=== PATIENT | female | born 1945 | race Caucasian/White ===

== ENCOUNTER 2016-08-25 12:35 | Inpatient (IN) ==
--- NOTE | 2016-08-25 13:35 | Emergency Department Note ---
START Narrative - START START: I examined this patient and my medical decision-making was reviewed with the DIRECTOR CARDIOVASCULAR/PA/Advanced Practice Nurse/Resident Physician. I agree with the documented findings, disposition and treatment plan as described except to the extent set forth below. ED attending note: Patient seen with emergency medicine resident Dr. Silva. Please see a copy of his dictation for details of the H&P, evaluation and management, and emergency department disposition of this patient. We independently had [id number] contact with the patient. Briefly: A 71-year-old female sent [facility] for left hip fracture. She has been complaining of pain for several weeks had imaging which would stress fracture. Also complains of left shoulder pain for several weeks and once that x-rayed as well. Again no history of trauma. Examination is benign aside from the left hip and left shoulder. Neurologically nonfocal. Not on blood thinners. Admission pending. X-ray pending. Patient stable.
--- NOTE | 2016-08-25 13:35 | Emergency Department Note ---
Disposition Clinical Impression: Fracture of hip Disposition: Admitted As Inpatient Condition: Good Referrals: Noé Skinner MD [Primary Care Provider] - Forms: ED Satisfaction Letter Lower Extremity Injury HPI - General Chief Complaint: ED Extremity Injury, Lower Stated Complaint: Hip Fracture/[facility] Time Seen by Provider: 08/25/16 13:00 Source: patient, EMS Mode of arrival: ambulatory Limitations: no limitations Nursing Notes Reviewed: Yes Vital Signs Reviewed: Yes - History of Present Illness HPI Narrative: 71-year-old female [facility] by Dr. Gutiérrez for admission of left hip fracture. The patient is had pain in this hip for the last several weeks without any associated trauma. She had an MRI performed 1 week ago that showed left femoral neck fracture that appears to be a stress fracture. Patient states that her pain is mild this time and does not want any IV pain medication. She denies any other symptoms including exercise intolerance, chest pain, shortness of breath, GI or symptoms. She does not know left shoulder discomfort over the last several weeks as well which is worse with motion of the shoulder and palpation of the shoulder. There is also no known injury of the shoulder. She states that she has been ambulating with a walker at the rehabilitation facility where she has been residing. Pt Subjective Complaint: hip injury - Related Data Home Medications Medication Instructions Recorded Confirmed Albuterol Sulfate [Albuterol 2 puff IH Q6HR PRN 05/06/15 07/27/16 Inhaler] Atorvastatin [Lipitor] 20 mg PO HS 05/06/15 07/27/16 Clopidogrel [Plavix] 75 mg PO DAILY 05/06/15 07/27/16 Ergocalciferol (VITAMIN D2) 50,000 unit PO MOWETHSA 05/06/15 07/27/16 [Vitamin D2 (50,000 UNIT)] Esomeprazole Magnesium [Nexium] 40 mg PO BID 05/06/15 07/27/16 Ropinirole HCl [Requip] 2 mg PO HS 05/06/15 07/27/16 Cyanocobalamin (B-12) [Vitamin B12] 1,000 mcg IM QMONTH 11/13/15 07/27/16 Potassium Chloride [K-Tab ER] 20 meq PO QID 11/13/15 07/27/16 Propranolol LA (24 HR) [Inderal LA] 80 mg PO DAILY 11/13/15 07/27/16 Scopolamine Patch [Transderm-Scop] 1.5 mg TD Q72H 11/13/15 07/27/16 LevETIRAcetam [Keppra Xr] 1,000 mg PO HS 04/29/16 07/27/16 Zolpidem Tartrate [Ambien Cr] 12.5 mg PO HS PRN 04/29/16 07/27/16 CloNIDine HCl 0.1 mg PO DAILY PRN 07/01/16 07/27/16 Lansoprazole [Prevacid] 30 mg PO DAILY 07/01/16 07/27/16 Nitroglycerin 1 - 2 spr PO ONCE PRN 07/01/16 07/27/16 SUMAtriptan [Imitrex] 50 mg PO Q2H PRN 07/01/16 07/27/16 Spironolactone [Aldactone] 25 mg PO TID 07/01/16 07/27/16 FLUoxetine HCl [Fluoxetine HCl] 40 mg PO QAM 07/27/16 07/27/16 Fluticasone Propionate [Flovent 220 mcg IH BID 07/27/16 07/27/16 Hfa] Hydrocortisone [Cortizone-10] 1 appl TP BID 07/27/16 07/27/16 Isosorbide MONOnitrate (24 HR) 60 mg PO DAILY 07/27/16 07/27/16 [Imdur] Mupirocin Calcium [Bactroban] 1 appl TP TID PRN 07/27/16 07/27/16 Propranolol [Inderal] 40 mg PO BID 07/27/16 07/27/16 Previous Rx's Medication Instructions Recorded Dronabinol [Marinol] 10 mg PO BID #8 capsule 07/30/16 Oxycodone HCl/Acetaminophen 1 each PO Q6H PRN #7 tablet 07/30/16 [Percocet 5-325 mg Tablet] Allergies Allergy/AdvReac Type Severity Reaction Status Date / Time divalproex sodium Allergy Unknown hallucinati Verified 07/27/16 22:23 on metoclopramide Allergy Unknown Nausea Verified 07/27/16 22:23 ondansetron Allergy Unknown Nausea Verified 07/27/16 22:23 prednisone Allergy Unknown unknown Verified 07/27/16 22:23 propoxyphene Allergy Unknown feeling of Verified 07/27/16 22:23 bugs crawling salicylates [Salicylate] Allergy Unknown unknown Verified 07/27/16 22:23 adhesive tape Allergy Blister Verified 07/27/16 22:23 acetaminophen AdvReac Intermediate See Verified 07/27/16 22:23 [From Susan-Suzi] Comments adhesive AdvReac Unknown Blister Verified 07/27/16 22:23 aspirin AdvReac Unknown bleeding Verified 07/27/16 22:23 stool softener AdvReac Unknown Shakiness Uncoded 04/29/16 07:40 All systems ED: reviewed and negative except as stated. Past Medical History - Past Medical History Attestation: Yes The following information was validated with the patient. 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) Psychiatric history: Reports: anxiety, depression - Social History Smoking Status: Current every day smoker Smokeless Tobacco Status: No Alcohol use: Reports: none Drug use: Reports: none Physical Exam - Head Head exam: atraumatic, normocephalic, normal inspection - Eye Eye exam: Present: normal appearance, PERRL, EOMI - ENT ENT exam: normal exam, normal oropharynx, mucous membranes moist - Neck Neck exam: Present: normal inspection, full ROM, trachea midline - Chest Chest inspection: Present: normal inspection, symmetric chest wall rise - Respiratory Respiratory exam: Clear to auscultation bilaterally without wheezes rales or rhonchi Cardiovascular Cardiovascular exam: Present: regular rate, normal rhythm, normal heart sounds - Abdominal Exam Abdominal exam: Present: soft, Non-Tender. Absent: tenderness, distention, guarding, rebound, rigidity - Extremities Exam Patient with diffuse left shoulder tenderness with normal motor, sensory, and vascular exam distally. Patient with left hip tenderness without swelling or sign of injury. Neurovascular exam is normal distal to the injury. - Back Exam Back exam: Present: normal inspection, full ROM. Absent: tenderness, CVA tenderness (R), CVA tenderness (L) - Neurological Exam Neurological exam: Present: alert, oriented X3, CN II-XII intact - Psychiatric Psychiatric exam: Present: normal affect, normal mood - Skin Skin exam: Present: warm, dry, intact, normal color - General Limitations: no limitations General appearance: alert, in no apparent distress Course - Reevaluation(s) Reevaluation #1: Shoulder x-ray negative. Patient accepted to Dr. Glass with the hospitalist service. Dr. Gilbert notified of patient. Time: 14:23 Vital Signs Temperature 98.4 F 08/25/16 12:36 Pulse Rate 46 08/25/16 12:36 Respiratory Rate 16 08/25/16 12:36 Blood Pressure 105/66 08/25/16 12:36 O2 Sat by Pulse Oximetry 95 08/25/16 12:36 Temperature 98.4 F 08/25/16 12:36 Pulse Rate 46 08/25/16 12:36 Respiratory Rate 16 08/25/16 12:36 Blood Pressure 105/66 08/25/16 12:36 O2 Sat by Pulse Oximetry 95 08/25/16 12:36 Oxygen Delivery Oxygen Delivery Room Air
[2016-08-25] MEDS ORDERED: *HR* HYDROcodone/Acet 5/325 mg TABLET PO ONE (14:11)
--- NOTE | 2016-08-25 16:31 | Orthopedic Consult Note ---
Date of Encounter: 08/25/16 Time of Encounter: 15:45 Assessment and Plan (1) Fracture of hip Current Visit: Yes Status: Acute Hip fracture will require surgical intervention. Scheduled for Left hip pinning tomorrow by Dr. Fitch pending medical clearance. Dr. Fitch discussed the procedure as well as r/b/a with patient when she was in the office today and consent was signed at that time. She will need to be NPO after midnight tonight. Continue pain control per hospitalist. Dr. Gutiérrez plan from office visit in [facility] (of note: his documentation states IM nail but the plan is for pinning): "Clinical Notes: I discussed with the patient her MRI findings of left hip showing Acute nondisplaced stress fracture involving the left femoral neck. Bone marrow edema and suspected nondisplaced insufficiency fracture of the right sacral ala. Mild left gluteus minimus insertional tendinitis. Nonspecific lesions in the right supra-acetabular iliac bone and right femoral neck. These may represent foci of red marrow although neoplastic disease is not entirely excluded. Consider further evaluation with contrast-enhanced right hip MRI and/ or bone scan. Also recommend correlation with any known neoplastic disease. Due to her continued pain she is describing in her left hip I suggested she seek susurgical consult for her left hip due to her osteoporosis. We also discussed getting a bone scan on a spot in her hip. She spoke with today in the office and would like to proceed with a surgery for a left hip IM nail. She will need surgical clearance." Qualifiers: Encounter type: initial encounter Fracture type: closed Laterality: left Qualified Code(s): S72.002A - Fracture of unspecified part of neck of left femur, initial encounter for closed fracture History of Present Illness Chief complaint: left hip pain HPI: Ms. Nelson is a 71 year old female who presented to the [facility] today for follow up after MRI of left hip. She was seen in the office by Dr. Gutiérrez. She denies any history of trauma to me but she is know to have osteoporosis and has been on treatment for 5 years. She also c/o left shoulder pain for awhile again with no known injury. Denies chest pain, SOB, fevers. Dr. Gutiérrez' HPI is copied below: "Patient here for MRI results of her left hip, NO known injury. SHe has sharp pains, worse with movement. Pains annalise 3/10 up to 10/10. Her pain is better with no movement. She complains of swelling in her feet and says her left leg is still somewhat numb. Pain is in the center of buttocks radiating into her groun . 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) - Social History Smoking Status: Current every day smoker Smokeless Tobacco Status: No Alcohol use: none Drug use: none - Family History Mother Adopted: No Family Member Ethnicity: Non- Living Status: Hx Family Cardiac Disorders: Yes Hx Family Respiratory Disorders: Yes Hx Family Cancer: Yes Hx Family GI Disorders: Yes Hx Family Endocrine Disorder: No Hx Family Neuromuscular Disorders: No Hx Family Neurologic Disorders: No Hx Family HEENT Disorders: No Hx Family Autoimmune Disorders: No Medications and Allergies Albuterol Sulfate [Albuterol Inhaler] 2 puff IH Q6HR PRN 05/06/15 [History] Atorvastatin [Lipitor] 20 mg PO HS 05/06/15 [History] Clopidogrel [Plavix] 75 mg PO DAILY 05/06/15 [History] Ergocalciferol (VITAMIN D2) [Vitamin D2 (50,000 UNIT)] 50,000 unit PO MOWETHSA 05/06/15 [History] Esomeprazole Magnesium [Nexium] 40 mg PO BID 05/06/15 [History] Ropinirole HCl [Requip] 2 mg PO HS 05/06/15 [History] Cyanocobalamin (B-12) [Vitamin B12] 1,000 mcg IM QMONTH 11/13/15 [History] Potassium Chloride [K-Tab ER] 20 meq PO QID 11/13/15 [History] Propranolol LA (24 HR) [Inderal LA] 80 mg PO DAILY 11/13/15 [History] Scopolamine Patch [Transderm-Scop] 1.5 mg TD Q72H 11/13/15 [History] LevETIRAcetam [Keppra Xr] 1,000 mg PO HS 04/29/16 [History] Zolpidem Tartrate [Ambien Cr] 12.5 mg PO HS PRN 04/29/16 [History] CloNIDine HCl 0.1 mg PO DAILY PRN 07/01/16 [History] Lansoprazole [Prevacid] 30 mg PO DAILY 07/01/16 [History] Nitroglycerin 1 - 2 spr PO ONCE PRN 07/01/16 [History] SUMAtriptan [Imitrex] 50 mg PO Q2H PRN 07/01/16 [History] Spironolactone [Aldactone] 25 mg PO TID 07/01/16 [History] FLUoxetine HCl [Fluoxetine HCl] 40 mg PO QAM 07/27/16 [History] Fluticasone Propionate [Flovent Hfa] 220 mcg IH BID 07/27/16 [History] Hydrocortisone [Cortizone-10] 1 appl TP BID 07/27/16 [History] Isosorbide MONOnitrate (24 HR) [Imdur] 60 mg PO DAILY 07/27/16 [History] Mupirocin Calcium [Bactroban] 1 appl TP TID PRN 07/27/16 [History] Dronabinol [Marinol] 10 mg PO BID #8 capsule 07/30/16 [Rx] HYDROmorphone [Dilaudid] 2 mg IV Q3H PRN 08/25/16 [History] Oxycodone HCl/Acetaminophen [Percocet 5-325 mg Tablet] 1 tab PO Q6H PRN [History] Promethazine [Phenergan] 25 mg IV Q8HR PRN 08/25/16 [History] Allergies divalproex sodium Allergy (Unknown, Verified 07/27/16 22:23) hallucination metoclopramide Allergy (Unknown, Verified 07/27/16 22:23) Nausea ondansetron Allergy (Unknown, Verified 07/27/16 22:23) Nausea prednisone Allergy (Unknown, Verified 07/27/16 22:23) unknown propoxyphene Allergy (Unknown, Verified 07/27/16 22:23) feeling of bugs crawling salicylates [Salicylate] Allergy (Unknown, Verified 07/27/16 22:23) unknown adhesive tape Allergy (Verified 07/27/16 22:23) Blister acetaminophen [From Darvocet-N] Adverse Reaction (Intermediate, Verified 22:23) See Comments feels like bugs crawling adhesive Adverse Reaction (Unknown, Verified 07/27/16 22:23) Blister aspirin Adverse Reaction (Unknown, Verified 07/27/16 22:23) bleeding stool softener Adverse Reaction (Unknown, Uncoded 04/29/16 07:40) Shakiness All Systems Reviewed: A 10-system review of systems was performed and is negative for pertinent findings except as documented above in the HPI. - Constitutional Constitutional: as per HPI - Cardiovascular Cardiovascular: as per HPI - Respiratory Respiratory: as per HPI - Musculoskeletal Musculoskeletal: as per HPI Physical Exam - Constitutional Vitals: Temp Pulse Resp BP Pulse Ox 98.2 F 48 14 96/62 97 08/25/16 16:11 08/25/16 16:11 08/25/16 16:11 08/25/16 16:11 08/25/16 16:11 - Hip left Gait: antalgic Tenderness with palpation: anterior, lateral ROM: extension: abnormal (no open wounds, erythema or ecchymosis, ROM limited secondary to pain, NV intact) Results - Labs Labs: All other labs normal. - Diagnostic results Shoulder x-ray: report reviewed, image reviewed Hip AP/Lateral x-ray: report reviewed, image reviewed Hip MRI: image reviewed Consult Discharge Plan - Plan Referrals: Noé Skinner MD [Primary Care Provider] - - Attending Attestation Case and plan of care discussed with supervising physician who was available for all aspects of care. Section of Dr. Gutiérrez' documentation are included for completeness as he did the full evaluation while patient was in the [facility] office.
[2016-08-25] MEDS ORDERED: Acetaminophen 325 MG TABLET PO PRN (17:05)
[2016-08-25] MEDS ORDERED: Naloxone 0.4 MG/ML INJ IVP PRN (17:05)
[2016-08-25 17:59] LABS: Basophils # 0.1 K/mcL (0.0-0.2); Basophils % 0.8 %; Eosinophils # 0.5 K/mcL (0.0-0.6); Eosinophils % 7.4 %; Hematocrit 36.3 % (35.3-44.9); Hemoglobin 11.9 g/dL (11.5-15.4); Immature Granulocytes % 0.3 % (0-4); Lymphocytes # 2.1 K/mcL (0.6-4.6); Lymphocytes % 31.9 %; Mean Corpuscular HGB Conc 32.8 g/dL (31.6-35.5); Mean Corpuscular Hemoglobin 29.6 pg (28.0-33.3); Mean Corpuscular Volume 90.3 fL (83.0-100.0); Mean Platelet Volume 10.2 fL (9.4-12.4); Monocytes # 0.5 K/mcL (0.0-1.3); Monocytes % 7.1 %; Neutrophils # 3.5 K/mcL (1.6-8.9); Platelet Count 204 K/mcL (140-400); Red Blood Count 4.02 M/mcL (3.82-4.97); Red Cell Distribution Width 14.7 % (11.5-14.5); Segmented Neutrophils % 52.5 %
[2016-08-25 18:04] LABS: Prothrombin Time 10.5 Seconds (9.4-12.1)
[2016-08-25 18:07] LABS: Activated Partial Thrombo Time 34.2 Seconds (26.0-36.0)
[2016-08-25] MEDS: *HR* Morphine 2 MG/ML SYRINGE IVP PRN ×2 (18:09→22:07)
[2016-08-25 18:20] LABS: BUN/Creatinine Ratio 21 (6-26); Blood Urea Nitrogen 23 mg/dL (7-20); Calcium 8.4 mg/dL (8.6-10.8); Carbon Dioxide 21 mEq/L (19-29); Chloride 109 mEq/L (98-109); Glucose 95 mg/dL (70-99); Osmolality,Calculated 291 (280-300); Potassium 5.1 mEq/L (3.5-4.5); Sodium 139 mEq/L (136-145); eGFR For African Americans > 60 (> 60); eGFR For Non-African Americans 50 (> 60)
[2016-08-25] MEDS ORDERED: Scopolamine Patch 1.5 MG PATCH.TD72 TD SCH (19:15)
[2016-08-25] MEDS ORDERED: Albuterol 2.5 MG/3 ML NEBULIZER IH PRN (19:21)
--- NOTE | 2016-08-25 19:23 | Internal Med History&Physical ---
Date of Encounter: 08/26/16 Time of Encounter: 18:00 Assessment and Plan (1) Fracture of hip Current visit: Yes Status: Acute 1 patient is to undergo surgical repair of left hip in the a.m. per orthopedics - patient will be nothing by mouth after midnight 2 morphine for pain-Phenergan for nausea [address] García catheter 4 monitor intake and output daily weights 5 and to use cardiac monitoring 6 consult PT/OT Qualifiers: Encounter type: initial encounter Fracture type: closed Laterality: left Qualified Code(s): S72.002A - Fracture of unspecified part of neck of left femur, initial encounter for closed fracture (2) Seizure disorder Current visit: Yes Status: Acute 1 no seizure activity noted-we will place on seizure precautions 2 we will continue with Keppra (3) Hyperkalemia Current visit: Yes Status: Acute 1 potassium 5.1 we will hold potassium supplement will hold spironolactone were now 2 IV fluids overnight 3 recheck potassium in a.m. 4 continue his cardiac monitoring (4) CAD (coronary artery disease) Current visit: No Status: Acute 1 continue with Plavix stat and will hold propanolol for now due to beta-2 action and patient's history COPD and patient will be intubated. COPD exacerbation. We will place on metoprolol 12.5 mg by mouth twice a day 24 hours and will resume propanolol. Qualifiers: Coronary Disease-Associated Artery/Lesion type: [place] artery [place] vs. transplanted heart: [place] heart Associated angina: without angina Qualified Code(s): I25.10 - Atherosclerotic heart disease of [place] coronary artery without angina pectoris (5) COPD (chronic obstructive pulmonary disease) Current visit: No Status: Acute 1 stable we will continue with oxygen as needed and bronchodilators Qualifiers: COPD type: chronic bronchitis Chronic bronchitis type: mixed simple and mucopurulent Qualified Code(s): J41.8 - Mixed simple and mucopurulent chronic bronchitis (6) DVT prophylaxis Current visit: No Status: Acute Heparin subcutaneous Internal Medicine - H&P: HPI Chief complaint: Left hip fracture Admitted From: Long-term Nursing Facility Plans for Post Hospital Care: Transfer Inp Rehab Fac History of present illness: Ms. Nelson is a 71 year old female with past medical history of COPD CAD with stents lasted approximately 1-1/2 year ago. Seizure disorder last seizure 1-1/ 2 year ago COPD history of gastric bypass surgery revision 2007, AVM malformation 2003. Patient has been experiencing difficulty in ambulation and weakness of left leg since July. She has been in rehabilitation since July due to inability to walk. She she has been experiencing left hip pain MRI was obtained of left hip as outpatient was noted to have acute nondisplaced stress fracture of left femoral neck. She is to undergo surgical repair of left hip tomorrow morning. Due to patient's cardio vascular/pulmonary history she is at moderate to severe risk of perioperative cardiovascular/pulmonary event. At present time the patient's COPD is stable with no wheezing or exacerbation noted. Her CAD is stable with no chest pain shortness of breath noted at this time. Presently there is no signs and symptoms of seizure activity, seizure disorder is stable at this time. We will obtain preoperative chest x-ray and labs, EKG at this time sinus bradycardia with nonspecific ST changes. Echo obtained and 2015 EF 60% mild diastolic dysfunction. I reviewed this case with who agrees with plan Past Med Surg Social Fam HX - Past Medical History Medical history: arthritis, COPD, coronary artery disease, GERD, hyperlipidemia , myocardial infarction, osteoporosis, renal disease, seizures, syncope, other Psychiatric history: anxiety, depression - Past Surgical History Surgical History: angioplasty/stent, orthopedic, other (Foot and back), other ( Brain surgery in 2003 for AVM malformation) - Social History Smoking Status: Current every day smoker Smokeless Tobacco Status: No Alcohol use: none Drug use: none - Family History Mother Adopted: No Family Member Ethnicity: Non- Living Status: Hx Family Cardiac Disorders: Yes Hx Family Respiratory Disorders: Yes Hx Family Cancer: Yes Hx Family GI Disorders: Yes Hx Family Endocrine Disorder: No Hx Family Neuromuscular Disorders: No Hx Family Neurologic Disorders: No Hx Family HEENT Disorders: No Hx Family Autoimmune Disorders: No Internal Medicine - H&P: Meds Albuterol Sulfate [Albuterol Inhaler] 2 puff IH Q6HR PRN 05/06/15 [History] Atorvastatin [Lipitor] 20 mg PO HS 05/06/15 [History] Clopidogrel [Plavix] 75 mg PO DAILY 05/06/15 [History] Ergocalciferol (VITAMIN D2) [Vitamin D2 (50,000 UNIT)] 50,000 unit PO MOWETHSA 05/06/15 [History] Esomeprazole Magnesium [Nexium] 40 mg PO BID 05/06/15 [History] Ropinirole HCl [Requip] 2 mg PO HS 05/06/15 [History] Cyanocobalamin (B-12) [Vitamin B12] 1,000 mcg IM QMONTH 11/13/15 [History] Potassium Chloride [K-Tab ER] 20 meq PO QID 11/13/15 [History] Propranolol LA (24 HR) [Inderal LA] 80 mg PO DAILY 11/13/15 [History] Scopolamine Patch [Transderm-Scop] 1.5 mg TD Q72H 11/13/15 [History] LevETIRAcetam [Keppra Xr] 1,000 mg PO HS 04/29/16 [History] Zolpidem Tartrate [Ambien Cr] 12.5 mg PO HS PRN 04/29/16 [History] CloNIDine HCl 0.1 mg PO DAILY PRN 07/01/16 [History] Lansoprazole [Prevacid] 30 mg PO DAILY 07/01/16 [History] Nitroglycerin 1 - 2 spr PO ONCE PRN 07/01/16 [History] SUMAtriptan [Imitrex] 50 mg PO Q2H PRN 07/01/16 [History] Spironolactone [Aldactone] 25 mg PO TID 07/01/16 [History] FLUoxetine HCl [Fluoxetine HCl] 40 mg PO QAM 07/27/16 [History] Fluticasone Propionate [Flovent Hfa] 220 mcg IH BID 07/27/16 [History] Hydrocortisone [Cortizone-10] 1 appl TP BID 07/27/16 [History] Isosorbide MONOnitrate (24 HR) [Imdur] 60 mg PO DAILY 07/27/16 [History] Mupirocin Calcium [Bactroban] 1 appl TP TID PRN 07/27/16 [History] Dronabinol [Marinol] 10 mg PO BID #8 capsule 07/30/16 [Rx] HYDROmorphone [Dilaudid] 2 mg IV Q3H PRN 08/25/16 [History] Oxycodone HCl/Acetaminophen [Percocet 5-325 mg Tablet] 1 tab PO Q6H PRN [History] Promethazine [Phenergan] 25 mg IV Q8HR PRN 08/25/16 [History] Allergies divalproex sodium Allergy (Unknown, Verified 07/27/16 22:23) hallucination metoclopramide Allergy (Unknown, Verified 07/27/16 22:23) Nausea ondansetron Allergy (Unknown, Verified 07/27/16 22:23) Nausea prednisone Allergy (Unknown, Verified 07/27/16 22:23) unknown propoxyphene Allergy (Unknown, Verified 07/27/16 22:23) feeling of bugs crawling salicylates [Salicylate] Allergy (Unknown, Verified 07/27/16 22:23) unknown adhesive tape Allergy (Verified 07/27/16 22:23) Blister acetaminophen [From Darvocet-N] Adverse Reaction (Intermediate, Verified 22:23) See Comments feels like bugs crawling adhesive Adverse Reaction (Unknown, Verified 07/27/16 22:23) Blister aspirin Adverse Reaction (Unknown, Verified 07/27/16 22:23) bleeding stool softener Adverse Reaction (Unknown, Uncoded 04/29/16 07:40) Shakiness All Systems PM: A 10-system review of systems was performed and is negative for pertinent findings except as documented above in the HPI. - Constitutional Constitutional: no chills, no fever(s), no night sweats - EENT Eyes: no change in vision, no discharge, no pain, no photophobia Nose, mouth and throat: no dysphagia, no nasal discharge, no neck pain, no sore throat - Cardiovascular Cardiovascular ROS IM: no chest pain, no diaphoresis, no dyspnea, no lightheadedness, no palpitations, no syncope - Respiratory Respiratory: no cough, no dyspnea, no wheezing, no excessive phlegm production - Gastrointestinal Gastrointestinal: no abdominal pain, no diarrhea, no hematemesis, no hematochezia, no melena, no nausea, no vomiting - Genitourinary Genitourinary: no change in urinary stream, no dysuria, no flank pain, no hematuria - Musculoskeletal Musculoskeletal ROS IM: muscle weakness, other Additional comments: Left hip pain - Neurological Neurological ROS: abnormal gait, weakness - Constitutional Vitals: Temp Pulse Resp BP Pulse Ox 98.2 F 48 14 96/62 97 08/25/16 16:11 08/25/16 16:11 08/25/16 16:11 08/25/16 16:11 08/25/16 16:11 General appearance: Present: A&O X 3, answers questions appropriately - Head Head exam: Present: atraumatic, normocephalic - Eye Eye exam: Present: PERRL, conjuntiva pink, sclera anicteric Pupils: Present: PERRL - Neck Neck exam general surgery: Present: supple, trachea midline. Absent: lymphadenopathy - Respiratory Respiratory exam: Present: CTAB. Absent: accessory muscle use, rales, rhonchi, wheezes - Cardiovascular Cardiovascular exam: Present: RRR, +S1, +S2. Absent: diastolic murmur, gallop, rubs, systolic murmur - GI/Abdominal GI/Abdominal exam: Present: normal bowel sounds, soft, no peritoneal signs. Absent: distended, tenderness - Extremities Exam Extremities exam: Present: pedal edema, warm, radial pulses palpable and symetrical. Absent: calf tenderness, cyanotic Additional comments: +1 pedal edema to lower extremities bilaterally - Neurological Exam Neurological exam: Present: CN II-XII intact, oriented X3, no focal deficits. Absent: pronater drift, facial droop, speech deficit - Skin Skin exam: Present: dry, intact Internal Med - H&P Results - Labs CBC & Chem 7: 08/25/16 17:50 08/25/16 17:50 - EKG Data EKG shows normal: sinus rhythm Rate: bradycardia - EKG Data Interpretation IM: normal EKG
[2016-08-25] MEDS: *HR* Promethazine 25 MG/ML VIAL IVP PRN (20:00)
--- NOTE | 2016-08-25 20:28 | Anesthesia Evaluation PreOp ---
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 STRAP SEWER History: Seizures (last seizure was around 1.5 years ago), Other (hx brain surgery for AVM) Other Medical History: Other (abdominal migraines since her brain surgery - takes phenergan at home) Anesthesia History: No Prior Anesthetic Complications Alcohol Use: none Drug use: none Medications and Allergies Albuterol Sulfate [Albuterol Inhaler] 2 puff IH Q6HR PRN 05/06/15 [History] Atorvastatin [Lipitor] 20 mg PO HS 05/06/15 [History] Clopidogrel [Plavix] 75 mg PO DAILY 05/06/15 [History] Ergocalciferol (VITAMIN D2) [Vitamin D2 (50,000 UNIT)] 50,000 unit PO MOWETHSA 05/06/15 [History] Esomeprazole Magnesium [Nexium] 40 mg PO BID 05/06/15 [History] Ropinirole HCl [Requip] 2 mg PO HS 05/06/15 [History] Cyanocobalamin (B-12) [Vitamin B12] 1,000 mcg IM QMONTH 11/13/15 [History] Potassium Chloride [K-Tab ER] 20 meq PO QID 11/13/15 [History] Propranolol LA (24 HR) [Inderal LA] 80 mg PO DAILY 11/13/15 [History] Scopolamine Patch [Transderm-Scop] 1.5 mg TD Q72H 11/13/15 [History] LevETIRAcetam [Keppra Xr] 1,000 mg PO HS 04/29/16 [History] Zolpidem Tartrate [Ambien Cr] 12.5 mg PO HS PRN 04/29/16 [History] CloNIDine HCl 0.1 mg PO DAILY PRN 07/01/16 [History] Lansoprazole [Prevacid] 30 mg PO DAILY 12/01/16 [History] Nitroglycerin 1 - 2 spr PO ONCE PRN 07/01/16 [History] SUMAtriptan [Imitrex] 50 mg PO Q2H PRN 07/01/16 [History] Spironolactone [Aldactone] 25 mg PO TID 07/01/16 [History] FLUoxetine HCl [Fluoxetine HCl] 40 mg PO QAM 07/27/16 [History] Fluticasone Propionate [Flovent Hfa] 220 mcg IH BID 07/27/16 [History] Hydrocortisone [Cortizone-10] 1 appl TP BID 07/27/16 [History] Isosorbide MONOnitrate (24 HR) [Imdur] 60 mg PO DAILY 07/27/16 [History] Mupirocin Calcium [Bactroban] 1 appl TP TID PRN 07/27/16 [History] Dronabinol [Marinol] 10 mg PO BID #8 capsule 07/30/16 [Rx] HYDROmorphone [Dilaudid] 2 mg IV Q3H PRN 08/25/16 [History] Oxycodone HCl/Acetaminophen [Percocet 5-325 mg Tablet] 1 tab PO Q6H PRN [History] Promethazine [Phenergan] 25 mg IV Q8HR PRN 08/25/16 [History] Allergies divalproex sodium Allergy (Unknown, Verified 07/27/16 22:23) hallucination metoclopramide Allergy (Unknown, Verified 07/27/16 22:23) Nausea ondansetron Allergy (Unknown, Verified 07/27/16 22:23) Nausea prednisone Allergy (Unknown, Verified 07/27/16 22:23) unknown propoxyphene Allergy (Unknown, Verified 07/27/16 22:23) feeling of bugs crawling salicylates [Salicylate] Allergy (Unknown, Verified 07/27/16 22:23) unknown adhesive tape Allergy (Verified 07/27/16 22:23) Blister acetaminophen [From Darvocet-N] Adverse Reaction (Intermediate, Verified 22:23) See Comments feels like bugs crawling adhesive Adverse Reaction (Unknown, Verified 07/27/16 22:23) Blister aspirin Adverse Reaction (Unknown, Verified 07/27/16 22:23) bleeding stool softener Adverse Reaction (Unknown, Uncoded 04/29/16 07:40) Shakiness - Meds/Allergy Pre-op Review Medications Reviewed: Yes Allergies Reviewed: Yes ( allergy to multiple anti-emetics (reglan, zofran)) Beta Blockers on Current Med List: Yes If Beta Blockers taken, Date/Time (Last Dose taken): propranolol (HR has been in the 40's on the floor) Anesthesia Results - Labs 08/25/16 17:50 08/25/16 17:50 - Imaging EKG: report reviewed, image reviewed (SB; non specific T wave abnormality) Anesthesia Exam Last Vital Signs Temp 98.2 F 08/25/16 16:11 Pulse 46 08/25/16 19:46 Resp 14 08/25/16 16:11 BP 106/58 08/25/16 19:46 Pulse Ox 97 08/25/16 16:11 Weight: 64 kg NPO (# of Hours): >> 8 hrs - HEENT Pupil (Motor): Pupils equal, EOMI Mallampati: III Teeth: Edentulous Oral Opening: Greater than 3 - CHIN STRAP SEWER LOC: Oriented - Cardiac Rhythm: Regular Murmur: None - Pulmonary Breath Sounds: bilateral Clear Respiratory Effort: Symmetrical Anesthesia Assess/Plan ASA Score: 3 Modified Flor Scale for Level of Consciousness: Cooperative, oriented, and tranquil Anesthetic Plan: General Monitoring Plan: Standard Monitors Recovery Plan: PACU
[2016-08-25] MEDS: levETIRAcetam 250 MG TABLET PO SCH (21:55)
[2016-08-25] MEDS: Ipratropium/Albuterol Neb 3 ML IH SCH (22:36)
[2016-08-26] MEDS: 0.9 % Sodium Chloride 1,000 ML IVC SCH ×3 (01:03→21:09)
[2016-08-26] MEDS: *HR* HYDROcodone/Acet 5/325 mg TABLET PO PRN ×3 (01:03→21:00)
[2016-08-26] MEDS: *HR* Morphine 2 MG/ML SYRINGE IVP PRN (04:30)
[2016-08-26] MEDS: Ipratropium/Albuterol Neb 3 ML IH SCH ×4 (05:22→23:41)
[2016-08-26] MEDS: *HR* Promethazine 25 MG/ML VIAL IVP PRN ×3 (05:35→16:53)
[2016-08-26] MEDS: levETIRAcetam 250 MG TABLET PO SCH ×2 (08:19→21:00)
[2016-08-26] MEDS ORDERED: Pantoprazole 40 MG VIAL IVP SCH (09:00)
[2016-08-26 10:27] LABS: BUN/Creatinine Ratio 25 (6-26); Blood Urea Nitrogen 24 mg/dL (7-20); Calcium 7.8 mg/dL (8.6-10.8); Carbon Dioxide 21 mEq/L (19-29); Chloride 112 mEq/L (98-109); Glucose 87 mg/dL (70-99); Osmolality,Calculated 295 (280-300); Potassium 5.4 mEq/L (3.5-4.5); Sodium 141 mEq/L (136-145); eGFR For African Americans > 60 (> 60); eGFR For Non-African Americans 58 (> 60)
[2016-08-26] MEDS ORDERED: Calcium Gluconate 1,000 MG in D5% in Water 100 ML IVPB ONE (10:40)
[2016-08-26] MEDS ORDERED: *HR* FentaNYL (PF) 100 MCG/2 ML VIAL ONE ×2 (14:03→15:01)
[2016-08-26] MEDS ORDERED: *HR* Succinylcholine 200 MG/10 ML VIAL IVP ONE (14:04)
[2016-08-26] MEDS ORDERED: *HR* Propofol 200 MG/20 ML VIAL IVP ONE ×2 (14:04→15:01)
[2016-08-26] MEDS ORDERED: *HR* Midazolam HCl 2 MG/2 ML VIAL ONE ×2 (14:04→15:01)
[2016-08-26] MEDS ORDERED: Acetaminophen IV 1,000 MG/100 ML INFUS..BTL ONE (14:54)
[2016-08-26] MEDS ORDERED: Lidocaine -MPF 2% 2 ML VIAL ONE ×2 (14:55→15:01)
[2016-08-26] MEDS ORDERED: EPHEDrine 50 MG/ML VIAL ONE (15:47)
--- NOTE | 2016-08-26 15:51 | Electrocardiograph Report ---
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
--- NOTE | 2016-08-26 15:51 | Electrocardiograph Report ---
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
--- NOTE | 2016-08-26 15:58 | Internal Med Progress Note ---
Date of Encounter: 08/26/16 Time of Encounter: 15:57 - Assessment and plan (1) Fracture of hip Current Visit: Yes Status: Acute Assessment and plan: Management as per Orthopedic surgery. Qualifiers: Encounter type: initial encounter Fracture type: closed Laterality: left Qualified Code(s): S72.002A - Fracture of unspecified part of neck of left femur, initial encounter for closed fracture (2) Hyperkalemia Current Visit: Yes Status: Acute Assessment and plan: calcium gluconate, kayaxelate given today. (3) Seizure disorder Current Visit: Yes Status: Acute - Time Spent With Patient 25 - 35 minutes - Subjective Interval history: First encounter with the patient, was pleasant and complaining of hip pain. Patient states that her blood pressure is usually in the lower side. Additionally she is always bradycardic. However, is asymptomatic otherwise. - Constitutional Vitals: Temp Pulse Resp BP Pulse Ox 98.2 F 62 18 93/58 98 08/26/16 13:19 08/26/16 13:19 08/26/16 13:19 08/26/16 13:19 08/26/16 13:19 General appearance: Present: A&O X 3, answers questions appropriately - Head Head exam: Present: atraumatic, normocephalic - Eye Eye exam: Present: PERRL, conjuntiva pink, sclera anicteric Pupils: Present: PERRL - Neck Neck exam general surgery: Present: supple, trachea midline. Absent: lymphadenopathy - Respiratory Respiratory exam: Present: CTAB. Absent: accessory muscle use, rales, rhonchi, wheezes - Cardiovascular Cardiovascular exam: Present: RRR, +S1, +S2. Absent: diastolic murmur, gallop, rubs, systolic murmur - GI/Abdominal GI/Abdominal exam: Present: normal bowel sounds, soft, no peritoneal signs. Absent: distended, tenderness - Extremities Exam Extremities exam: Present: warm, radial pulses palpable and symetrical. Absent : calf tenderness, cyanotic, pedal edema - Neurological Exam Neurological exam: Present: CN II-XII intact, oriented X3, no focal deficits. Absent: pronater drift, facial droop, speech deficit - Skin Skin exam: Present: dry, intact Internal Medicine: Result - Labs CBC & Chem 7: 08/25/16 17:50 08/26/16 10:00 Labs: BMP 08/26/16 10:00 Sodium 141 Potassium 5.4 H Chloride 112 H Carbon Dioxide 21 BUN 24 H Creatinine 0.95 Glucose 87 Calcium 7.8 L - ABG Interpretation ABG results: PT/INR, D-dimer PT 10.5 Seconds (9.4-12.1) 08/25/16 17:50 - Impressions Impressions Chest X-Ray 08/26/16 23:44 IMPRESSION: Pulmonary vascular congestion and mild cardiomegaly. D/ / Gurvinder Horowitz MD / Gurvinder Horowitz MD Interpreting Provider: Gurvinder Horowitz MD Consult Discharge Plan - Plan Referrals: Noé Skinner MD [Primary Care Provider] -
[2016-08-26] MEDS ORDERED: *HR* HYDROmorphone (PF) 1 MG/ML SYRINGE ONE (16:35)
[2016-08-26] MEDS: *HR* HYDROmorphone (PF) 1 MG/ML SYRINGE IVP PRN ×2 (16:36→16:43)
[2016-08-26] MEDS ORDERED: *HR* Promethazine 25 MG/ML VIAL ONE (16:36)
--- NOTE | 2016-08-26 16:52 | Operative Note ---
Date of procedure: 08/26/16 Pre-op diagnosis: Left hip femoral neck stress fracture Post-op diagnosis: same Procedure: Left hip percutaneous pinning Implants: [place] 6.5 mm partially-threaded cannulated screws Anesthesia: PERCY Surgeon: Osmany Fitch Estimated blood loss (cc): 5 Specimen: 0 Condition: stable Disposition: PACU Procedure in Detail: The patient received IV antibiotics in the holding area, she was brought to the operating room, a sign in was performed, and she underwent general anesthesia on the hospital bed. The patient was then transferred to the OR fracture table in supine position. The patient was positioned against the groin post, with traction applied to the left lower extremity. The contralateral lower extremity was then placed onto a well-padded leg murdock keeping her hip flexed and abducted. Once the patient was well positioned, the x-ray C-arm was brought in and fluoroscopy shots of the hip were taken, adjusting the lower extremity, making sure we will get a good AP and lateral views. A fresh line was not visible, as this was a stress fracture picked up on the MRI. MRI was reviewed once again confirming the location of the stress fracture, the stress fracture was located on the compression side in the subcapital region, insufficiency type. The left hip and thigh down to the knee was then prepped and draped in standard technique. A timeout was performed. The guidewire was placed over the hip and it's position was checked under fluoroscopy. The guidewire was placed precariously through skin and driven from the lateral cortex paralleling the inferior neck and staying central on the AP plane. This was driven up to the head, its position checked on AP and lateral views. A 3 cm longitudinal incisions then made going superior to the guidewire. The depth was measured, next I overdrilled the guidewire and placed the appropriate length screw with short threads. Another guidewire was then placed superior and anterior, steps were repeated to place another screw. Finally a third guidewire was attempted but was not going very posterior. Eventually we only used 2 screws. Final AP and lateral shots were taken and saved, showing good screw placement. The wound was irrigated normal saline, the subcutaneous tissues closed with 2-0 Vicryl sutures, and skin stapled. Sterile dressings were applied. The patient was then transferred to hospital bed where she was extubated and taken to recovery room in stable condition. The patient will be toe-touch weightbearing. The plan would be if she is doing well, with normal-appearing x-rays at 2 weeks, we can progress to weightbearing as tolerated.
--- NOTE | 2016-08-26 17:19 | Anesthesia Evaluation Post Op ---
Date of Encounter: 08/26/16 Time of Encounter: 17:18 - Vital Signs Vital Signs: Vital Signs/O2 Sat/Glucose, Most Current Temp Pulse Resp BP Pulse Ox 08/26/16 17:10 57 12 126/77 96 08/26/16 17:00 98.2 F 55 10 135/68 96 08/26/16 16:50 56 12 128/81 96 08/26/16 16:40 59 12 113/80 96 08/26/16 16:30 97.9 F 61 14 107/84 97 08/26/16 13:19 98.2 F 62 18 93/58 98 - Lungs Lungs: Clear Ascult./Percussion - Airway Airway: Non-obstructed - Cardiovascular Regular Rate - Mental Status Mental Status: Alert & Oriented, Answers Appropriately - Pain Pain Scale: 0 - Nausea Vomiting Nausea Vomiting: Not Present - Hydration Hydration: Tolerates oral liquids - Discharge PostOp Status: Discharge Patient to home
[2016-08-26] MEDS ORDERED: 0.9 % Sodium Chloride 1,000 ML IVC SCH (17:42)
[2016-08-26] MEDS ORDERED: *HR* Morphine 2 MG/ML SYRINGE IVP PRN (17:42)
[2016-08-26] MEDS ORDERED: *HR* Promethazine 25 MG/ML VIAL IVP PRN (17:42)
[2016-08-26] MEDS ORDERED: ceFAZolin 2,000 MG in D5% in Water 100 ML IVPB SCH (17:42)
[2016-08-26] MEDS ORDERED: Naloxone 0.4 MG/ML INJ IVP PRN ×2 (17:42)
[2016-08-26] MEDS ORDERED: Albuterol 2.5 MG/3 ML NEBULIZER IH PRN (17:42)
[2016-08-26] MEDS ORDERED: *HR* HYDROcodone/Acet 5/325 mg TABLET PO PRN (17:42)
[2016-08-26] MEDS ORDERED: *HR* OxyCODONE Immed Rel 5 MG TABLET PO PRN (17:42)
[2016-08-26] MEDS ORDERED: *HR* Heparin 5,000 UNIT/ML VIAL SQ SCH (18:00)
[2016-08-26] MEDS: ceFAZolin 2,000 MG in D5% in Water 100 ML IVPB SCH (23:28)
[2016-08-27] MEDS: *HR* HYDROcodone/Acet 5/325 mg TABLET PO PRN ×2 (03:07→08:39)
[2016-08-27] MEDS: Acetaminophen 325 MG TABLET PO PRN ×2 (04:39→10:46)
[2016-08-27] MEDS: Ipratropium/Albuterol Neb 3 ML IH SCH ×2 (05:00→12:03)
[2016-08-27] MEDS: 0.9 % Sodium Chloride 1,000 ML IVC SCH (07:31)
--- NOTE | 2016-08-27 08:18 | Orthopedics Progress Note ---
Date of Encounter: 08/27/16 Time of Encounter: 07:50 - Assessment and Plan (1) Fracture of hip Current Visit: Yes Status: Acute Patient doing well this am. Ok to DC back to [facility] from orthopedic standpoint. Continue TTWB. Therapy to work with patient at [facility]. Continue to ice and elevate as needed. Dressings to be changed tomorrow. Continue pain control per hospitalist. Will f/up with Giana Chavarria PA-C in [facility] on 09/08/16 at 11:00am. Qualifiers: Encounter type: initial encounter Fracture type: closed Laterality: left Qualified Code(s): S72.002A - Fracture of unspecified part of neck of left femur, initial encounter for closed fracture Subjective Principal diagnosis: POD#1 S/P Left hip pinning Interval history: Patient doing well this morning. She was sitting bedside eating breakfast. Minimal pain in hip at the moment but she states she BP typically runs low so she could not receive as much pain meds overnight as she felt she needed. States she has some tingling in the left leg for the past several weeks before surgery with no change since. Denies any other issues. Objective Vital signs: Vital Signs Temp Pulse Resp BP Pulse Ox 08/27/16 07:10 98.5 F 56 16 82/55 96 08/27/16 05:15 98.9 F 54 15 93/52 96 08/27/16 05:00 14 94 L 08/27/16 03:00 99 08/27/16 02:00 98.8 F 58 16 110/74 99 08/26/16 23:41 16 99 08/26/16 23:00 98.8 F 58 16 110/74 96 08/26/16 22:00 98.8 F 58 16 110/74 96 08/26/16 21:42 98.2 F 56 14 94/62 96 08/26/16 20:54 97.7 F 55 16 96/59 100 08/26/16 20:00 96 08/26/16 18:41 97.7 F 59 14 87/52 99 08/26/16 18:08 97.6 F 67 14 106/62 98 08/26/16 17:39 98.1 F 54 16 118/64 97 08/26/16 17:20 98.1 F 58 12 126/69 97 08/26/16 17:10 57 12 126/77 96 08/26/16 17:00 98.2 F 55 10 135/68 96 08/26/16 16:50 56 12 128/81 96 08/26/16 16:40 59 12 113/80 96 08/26/16 16:30 97.9 F 61 14 107/84 97 08/26/16 13:19 98.2 F 62 18 93/58 98 08/26/16 11:06 98.6 F 48 18 100 08/26/16 10:49 18 100 Intake and Output 08/26/16 08/27/16 08/27/16 23:59 07:59 15:59 Intake Total 1000 / 1000 Output Total 555 / 555 800 / 800 Balance -555 / -555 200 / 200 Intake: IV Fluids 1000 / 1000 0.9 % Sodium Chloride 1, 1000 / 1000 000 ML @ 75 mls/hr IVC . [id number] TIFFANIE Rx#: [id number] Output: Estimated Blood Loss 5 / 5 Urine Amount (Catheter) 550 / 550 Catheter 800 / 800 Incision: clean and dry (dressings clean and dry. no calf pain, good dorsiflexion of foot. NV intact.) - Labs CBC & BMP: 08/25/16 17:50 08/26/16 10:00 Labs: Abnormal lab results RDW 14.7 % (11.5-14.5) H 08/25/16 17:50 Potassium 5.4 mEq/L (3.5-4.5) H 08/26/16 10:00 Chloride 112 mEq/L (98-109) H 08/26/16 10:00 BUN 24 mg/dL (7-20) H 08/26/16 10:00 Est GFR (Non-Af Amer) 58 (> 60) L 08/26/16 10:00 Calcium 7.8 mg/dL (8.6-10.8) L 08/26/16 10:00 Consult Discharge Plan - Plan Referrals: Noé Skinner MD [Primary Care Provider] -
[2016-08-27] MEDS: levETIRAcetam 250 MG TABLET PO SCH (08:40)
[2016-08-27] MEDS ORDERED: Isosorbide MONOnitrate (24 HR) 60 MG TAB.ER.24H PO SCH (09:00)
[2016-08-27] MEDS ORDERED: Pantoprazole 40 MG VIAL IVP SCH (09:00)
[2016-08-27] MEDS: ceFAZolin 2,000 MG in D5% in Water 100 ML IVPB SCH (09:03)
[2016-08-27 09:12] LABS: Basophils % 0.4 %; Eosinophils # 0.4 K/mcL (0.0-0.6); Eosinophils % 5.7 %; Hematocrit 35.6 % (35.3-44.9); Hemoglobin 11.7 g/dL (11.5-15.4); Immature Granulocytes % 0.1 % (0-4); Immature Platelets 3.9 % (1.1-6.1); Lymphocytes # 1.3 K/mcL (0.6-4.6); Lymphocytes % 19.6 %; Mean Corpuscular HGB Conc 32.9 g/dL (31.6-35.5); Mean Corpuscular Hemoglobin 29.8 pg (28.0-33.3); Mean Corpuscular Volume 90.8 fL (83.0-100.0); Mean Platelet Volume 10.3 fL (9.4-12.4); Monocytes # 0.5 K/mcL (0.0-1.3); Monocytes % 7.2 %; Neutrophils # 4.6 K/mcL (1.6-8.9); Platelet Count 187 K/mcL (140-400); Red Blood Count 3.92 M/mcL (3.82-4.97); Red Cell Distribution Width 14.6 % (11.5-14.5)
[2016-08-27 09:31] LABS: BUN/Creatinine Ratio 20 (6-26); Blood Urea Nitrogen 18 mg/dL (7-20); Calcium 7.8 mg/dL (8.6-10.8); Carbon Dioxide 19 mEq/L (19-29); Chloride 111 mEq/L (98-109); Glucose 104 mg/dL (70-99); Osmolality,Calculated 292 (280-300); Potassium 4.4 mEq/L (3.5-4.5); Sodium 140 mEq/L (136-145); eGFR For African Americans > 60 (> 60); eGFR For Non-African Americans > 60 (> 60)
[2016-08-27 10:38] VITALS: BP 90/55
--- NOTE | 2016-08-27 12:31 | Discharge Summary ---
Date of Encounter: 08/27/16 Time of Encounter: 12:29 - Discharge Diagnosis (1) Fracture of hip Priority: Primary Status: Acute Qualifiers: Encounter type: initial encounter Fracture type: closed Laterality: left Qualified Code(s): S72.002A - Fracture of unspecified part of neck of left femur, initial encounter for closed fracture (2) Hyperkalemia Priority: Secondary Status: Acute (3) Seizure disorder Priority: Secondary Status: Acute - Discharge Medications Prescriptions: Tramadol HCl [Ultram] 50 mg PO BID PRN #20 tab PRN Reason: Pain Home Medications: Albuterol Sulfate [Albuterol Inhaler] 2 puff IH Q6HR PRN 05/06/15 [History] Atorvastatin [Lipitor] 20 mg PO HS 05/06/15 [History] Clopidogrel [Plavix] 75 mg PO DAILY 05/06/15 [History] Ergocalciferol (VITAMIN D2) [Vitamin D2 (50,000 UNIT)] 50,000 unit PO MOWETHSA 05/06/15 [History] Esomeprazole Magnesium [Nexium] 40 mg PO BID 05/06/15 [History] Ropinirole HCl [Requip] 2 mg PO HS 05/06/15 [History] Cyanocobalamin (B-12) [Vitamin B12] 1,000 mcg IM QMONTH 11/13/15 [History] Potassium Chloride [K-Tab ER] 20 meq PO QID 11/13/15 [History] Propranolol LA (24 HR) [Inderal LA] 80 mg PO DAILY 11/13/15 [History] Scopolamine Patch [Transderm-Scop] 1.5 mg TD Q72H 11/13/15 [History] LevETIRAcetam [Keppra Xr] 1,000 mg PO HS 04/29/16 [History] Zolpidem Tartrate [Ambien Cr] 12.5 mg PO HS PRN 04/29/16 [History] CloNIDine HCl 0.1 mg PO DAILY PRN 07/01/16 [History] Lansoprazole [Prevacid] 30 mg PO DAILY 07/01/16 [History] Nitroglycerin 1 - 2 spr PO ONCE PRN 07/01/16 [History] SUMAtriptan [Imitrex] 50 mg PO Q2H PRN 07/01/16 [History] Spironolactone [Aldactone] 25 mg PO TID 07/01/16 [History] FLUoxetine HCl [Fluoxetine HCl] 40 mg PO QAM 07/27/16 [History] Fluticasone Propionate [Flovent Hfa] 220 mcg IH BID 07/27/16 [History] Hydrocortisone [Cortizone-10] 1 appl TP BID 07/27/16 [History] Isosorbide MONOnitrate (24 HR) [Imdur] 60 mg PO DAILY 07/27/16 [History] Mupirocin Calcium [Bactroban] 1 appl TP TID PRN 07/27/16 [History] Dronabinol [Marinol] 10 mg PO BID #8 capsule 07/30/16 [Rx] HYDROmorphone [Dilaudid] 2 mg IV Q3H PRN 08/25/16 [History] Oxycodone HCl/Acetaminophen [Percocet 5-325 mg Tablet] 1 tab PO Q6H PRN [History] Promethazine [Phenergan] 25 mg IV Q8HR PRN 08/25/16 [History] Tramadol HCl [Ultram] 50 mg PO BID PRN #20 tab 08/27/16 [Rx] Allergies/Adverse Reactions: Allergies divalproex sodium Allergy (Unknown, Verified 07/27/16 22:23) hallucination metoclopramide Allergy (Unknown, Verified 07/27/16 22:23) Nausea ondansetron Allergy (Unknown, Verified 07/27/16 22:23) Nausea prednisone Allergy (Unknown, Verified 07/27/16 22:23) unknown propoxyphene Allergy (Unknown, Verified 07/27/16 22:23) feeling of bugs crawling salicylates [Salicylate] Allergy (Unknown, Verified 07/27/16 22:23) unknown adhesive tape Allergy (Verified 07/27/16 22:23) Blister acetaminophen [From Darvocet-N] Adverse Reaction (Intermediate, Verified 22:23) See Comments feels like bugs crawling adhesive Adverse Reaction (Unknown, Verified 07/27/16 22:23) Blister aspirin Adverse Reaction (Unknown, Verified 07/27/16 22:23) bleeding stool softener Adverse Reaction (Unknown, Uncoded 04/29/16 07:40) Shakiness Procedures/tests Complete & Pending: Procedures Performed prior 72 hours Category Date Time Status ECG 12 lead ECG [ECG] Routine Y 08/25/16 17:32 Completed Date of admission: 08/25/16 18:11 Primary care physician: Noé Skinner MD Consults: 08/26/16 17:42 Consult to Occupational Therapy [CONS] Routine Comment: Evaluate, develop and implement POC Consult to Orthopedic Navigator [CONS] [CONS] Routine Consult to Physical Therapy [CONS] Routine Comment: Evaluate, develop and implement POC Consult to Trust Administrator [CONS] Routine Reason for SW Consult: post -op hip fracture RT Post Op Consult [CONS] Routine Discharging clinician: Johnny García Anticipated date of discharge: 08/27/16 - Patient Status Disposition: Transfer SNF Condition: Good Functional capacity at discharge: bed bound Overall status at discharge: patient is progressing back to baseline - Discharge Instructions Follow Up With: Noé Skinner MD [Primary Care Provider] - - Diet and Activity Activity: as per physical therapy Diet: advance to your usual diet Interval History: Ms. Nelson is a 71 year old female with past medical history of COPD CAD with stents lasted approximately 1-1/2 year ago. Seizure disorder last seizure 1-1/ 2 year ago COPD history of gastric bypass surgery revision 2007, AVM malformation 2003. Patient has been experiencing difficulty in ambulation and weakness of left leg since July. She has been in rehabilitation since July due to inability to walk. She she has been experiencing left hip pain MRI was obtained of left hip as outpatient was noted to have acute nondisplaced stress fracture of left femoral neck. She is to undergo surgical repair of left hip tomorrow morning. Due to patient's cardio vascular/pulmonary history she is at moderate to severe risk of perioperative cardiovascular/pulmonary event. At present time the patient's COPD is stable with no wheezing or exacerbation noted. Her CAD is stable with no chest pain shortness of breath noted at this time. Presently there is no signs and symptoms of seizure activity, seizure disorder is stable at this time. We will obtain preoperative chest x-ray and labs, EKG at this time sinus bradycardia with nonspecific ST changes. Echo obtained and 2015 EF 60% mild diastolic dysfunction. I reviewed this case with who agrees with plan Hospital course: Ms. Nelson is a 71 year old female admitted due to hip fracture, underwent left percutaneous pinning. See report below. Date of procedure: 08/26/16 Pre-op diagnosis: Left hip femoral neck stress fracture Post-op diagnosis: same Procedure: Left hip percutaneous pinning Implants: Waqas 6.5 mm partially-threaded cannulated screws Anesthesia: PERCY Surgeon: Osmany Fitch Estimated blood loss (cc): 5 Specimen: 0 Condition: stable Disposition: PACU Procedure in Detail: The patient received IV antibiotics in the holding area, she was brought to the operating room, a sign in was performed, and she underwent general anesthesia on the hospital bed. The patient was then transferred to the OR fracture table in supine position. The patient was positioned against the groin post, with traction applied to the left lower extremity. The contralateral lower extremity was then placed onto a well-padded leg murdock keeping her hip flexed and abducted. Once the patient was well positioned, the x-ray C-arm was brought in and fluoroscopy shots of the hip were taken, adjusting the lower extremity, making sure we will get a good AP and lateral views. A fresh line was not visible, as this was a stress fracture picked up on the MRI. MRI was reviewed once again confirming the location of the stress fracture, the stress fracture was located on the compression side in the subcapital region, insufficiency type. The left hip and thigh down to the knee was then prepped and draped in standard technique. A timeout was performed. The guidewire was placed over the hip and it's position was checked under fluoroscopy. The guidewire was placed precariously through skin and driven from the lateral cortex paralleling the inferior neck and staying central on the AP plane. This was driven up to the head, its position checked on AP and lateral views. A 3 cm longitudinal incisions then made going superior to the guidewire. The depth was measured, next I overdrilled the guidewire and placed the appropriate length screw with short threads. Another guidewire was then placed superior and anterior, steps were repeated to place another screw. Finally a third guidewire was attempted but was not going very posterior. Eventually we only used 2 screws. Final AP and lateral shots were taken and saved, showing good screw placement. The wound was irrigated normal saline, the subcutaneous tissues closed with 2-0 Vicryl sutures, and skin stapled. Sterile dressings were applied. The patient was then transferred to hospital bed where she was extubated and taken to recovery room in stable condition. The patient will be toe-touch weightbearing. The plan would be if she is doing well, with normal-appearing x-rays at 2 weeks, we can progress to weightbearing as tolerated. Patient is stable and will be discharged to SNF. Continue TTWB. Therapy to work with patient at [facility]. Continue to ice and elevate as needed. Dressings to be changed tomorrow. Continue pain control with prn tramadol. Prescription written. Will f/up with Giana Chavarria PA-C in [facility] on 09/08/16 at 11:00am. - Time Spent with Patient Total time spent providing and/or coordinating discharge services: Greater than 30 minutes - Constitutional Vitals: Temp Pulse Resp BP Pulse Ox 98.3 F 55 15 90/55 100 08/27/16 10:37 08/27/16 10:37 08/27/16 10:37 08/27/16 10:37 08/27/16 10:37 General appearance: Present: A&O X 3, answers questions appropriately - Head Head exam: Present: atraumatic, normocephalic - Eye Eye exam: Present: PERRL, conjuntiva pink, sclera anicteric Pupils: Present: PERRL - Neck Neck exam general surgery: Present: supple, trachea midline. Absent: lymphadenopathy - Respiratory Respiratory exam: Present: CTAB. Absent: accessory muscle use, rales, rhonchi, wheezes - Cardiovascular Cardiovascular exam: Present: RRR, +S1, +S2. Absent: diastolic murmur, gallop, rubs, systolic murmur - GI/Abdominal GI/Abdominal exam: Present: normal bowel sounds, soft, no peritoneal signs. Absent: distended, tenderness - Extremities Exam Extremities exam: Present: warm, radial pulses palpable and symetrical. Absent : calf tenderness, cyanotic, pedal edema - Neurological Exam Neurological exam: Present: CN II-XII intact, oriented X3, no focal deficits. Absent: pronater drift, facial droop, speech deficit - Skin Skin exam: Present: dry, intact
--- NOTE | 2016-08-27 12:35 | Physician Discharge Referral ---
ExtendedCare Referral Info Transfer To: SNF Provider in Charge after Transfer: PCP Institutional Level of Care: Skilled - Diagnosis (1) Fracture of hip Status: Acute (2) Hyperkalemia Status: Acute (3) Seizure disorder Status: Acute Prognosis: Fair Aware of Diagnosis: Patient Aware of Prognosis: Patient - Transfer Medications Prescriptions: Tramadol HCl [Ultram] 50 mg PO BID PRN #20 tab PRN Reason: Pain Home Medications: Albuterol Sulfate [Albuterol Inhaler] 2 puff IH Q6HR PRN 05/06/15 [History] Atorvastatin [Lipitor] 20 mg PO HS 05/06/15 [History] Clopidogrel [Plavix] 75 mg PO DAILY 05/06/15 [History] Ergocalciferol (VITAMIN D2) [Vitamin D2 (50,000 UNIT)] 50,000 unit PO MOWETHSA 05/06/15 [History] Esomeprazole Magnesium [Nexium] 40 mg PO BID 05/06/15 [History] Ropinirole HCl [Requip] 2 mg PO HS 05/06/15 [History] Cyanocobalamin (B-12) [Vitamin B12] 1,000 mcg IM QMONTH 11/13/15 [History] Potassium Chloride [K-Tab ER] 20 meq PO QID 11/13/15 [History] Propranolol LA (24 HR) [Inderal LA] 80 mg PO DAILY 11/13/15 [History] Scopolamine Patch [Transderm-Scop] 1.5 mg TD Q72H 11/13/15 [History] LevETIRAcetam [Keppra Xr] 1,000 mg PO HS 04/29/16 [History] Zolpidem Tartrate [Ambien Cr] 12.5 mg PO HS PRN 04/29/16 [History] CloNIDine HCl 0.1 mg PO DAILY PRN 07/01/16 [History] Lansoprazole [Prevacid] 30 mg PO DAILY 07/01/16 [History] Nitroglycerin 1 - 2 spr PO ONCE PRN 07/01/16 [History] SUMAtriptan [Imitrex] 50 mg PO Q2H PRN 07/01/16 [History] Spironolactone [Aldactone] 25 mg PO TID 07/01/16 [History] FLUoxetine HCl [Fluoxetine HCl] 40 mg PO QAM 07/27/16 [History] Fluticasone Propionate [Flovent Hfa] 220 mcg IH BID 07/27/16 [History] Hydrocortisone [Cortizone-10] 1 appl TP BID 07/27/16 [History] Isosorbide MONOnitrate (24 HR) [Imdur] 60 mg PO DAILY 07/27/16 [History] Mupirocin Calcium [Bactroban] 1 appl TP TID PRN 07/27/16 [History] Dronabinol [Marinol] 10 mg PO BID #8 capsule 07/30/16 [Rx] HYDROmorphone [Dilaudid] 2 mg IV Q3H PRN 08/25/16 [History] Oxycodone HCl/Acetaminophen [Percocet 5-325 mg Tablet] 1 tab PO Q6H PRN [History] Promethazine [Phenergan] 25 mg IV Q8HR PRN 08/25/16 [History] Tramadol HCl [Ultram] 50 mg PO BID PRN #20 tab 08/27/16 [Rx] Allergies/Adverse Reactions: Allergies divalproex sodium Allergy (Unknown, Verified 07/27/16 22:23) hallucination metoclopramide Allergy (Unknown, Verified 07/27/16 22:23) Nausea ondansetron Allergy (Unknown, Verified 07/27/16 22:23) Nausea prednisone Allergy (Unknown, Verified 07/27/16 22:23) unknown propoxyphene Allergy (Unknown, Verified 07/27/16 22:23) feeling of bugs crawling salicylates [Salicylate] Allergy (Unknown, Verified 07/27/16 22:23) unknown adhesive tape Allergy (Verified 07/27/16 22:23) Blister acetaminophen [From Darvocet-N] Adverse Reaction (Intermediate, Verified 22:23) See Comments feels like bugs crawling adhesive Adverse Reaction (Unknown, Verified 07/27/16 22:23) Blister aspirin Adverse Reaction (Unknown, Verified 07/27/16 22:23) bleeding stool softener Adverse Reaction (Unknown, Uncoded 04/29/16 07:40) Shakiness - Respiratory Orders Smoking Cessation: Smoking cessation has been advised. For more information, call the [place] Tobacco Quit Line at 3-998-LRVQ-NOW. - Advance Directives Code Status: Full Code - Mobility Orders Other (as per PT) - Rehabiliation Orders Rehab Potential: Fair Rehab Orders: Sternal Precautions, Evaluation for Physical Therapy, Evaluation for Occupational Therapy - Diet Orders Regular CERTIFICATION: I certify that the transfer of the above named patient to an Extended Care Facility is necessary for the continuing treatment of the diagnosis listed. The above information is true and accurate reflection of patient's current condition. Confidential - Redisclosure prohibited without a patient's written consent.
[2016-08-27] MEDS ORDERED: *HR* Enoxaparin 30 MG/0.3 ML SYRINGE SQ SCH (15:34)
[2016-08-28] MEDS ORDERED: Scopolamine Patch 1.5 MG PATCH.TD72 TD SCH (19:15)
== END 2016-08-27 13:38 | DRG 481 ==
LOC: EMEROO 12:35 → 3NENU 12:35
PROVIDERS: ADMIT Internal Medicine; ATTEND Internal Medicine

== ENCOUNTER 2016-09-27 11:53 | Inpatient (IN) ==
[2016-09-28 04:15] LABS: Basophils % 0.1 %; Hematocrit 36.1 % (35.3-44.9); Hemoglobin 11.9 g/dL (11.5-15.4); Immature Granulocytes % 0.4 % (0-4); Lymphocytes # 0.8 K/mcL (0.6-4.6); Lymphocytes % 9.2 %; Mean Corpuscular Hemoglobin 30.1 pg (28.0-33.3); Mean Corpuscular Volume 91.4 fL (83.0-100.0); Mean Platelet Volume 10.8 fL (9.4-12.4); Monocytes # 0.2 K/mcL (0.0-1.3); Monocytes % 2.4 %; Neutrophils # 7.4 K/mcL (1.6-8.9); Platelet Count 198 K/mcL (140-400); Red Blood Count 3.95 M/mcL (3.82-4.97); Red Cell Distribution Width 12.2 % (11.5-14.5); Segmented Neutrophils % 87.9 %
[2016-09-28 05:52] LABS: BUN/Creatinine Ratio 20 (6-26); Blood Urea Nitrogen 22 mg/dL (7-20); Calcium 8.5 mg/dL (8.6-10.8); Carbon Dioxide 20 mEq/L (19-29); Chloride 108 mEq/L (98-109); Glucose 140 mg/dL (70-99); Osmolality,Calculated 294 (280-300); Potassium 5.2 mEq/L (3.5-4.5); Sodium 139 mEq/L (136-145); eGFR For African Americans > 60 (> 60); eGFR For Non-African Americans 50 (> 60)
[2016-09-29 03:51] LABS: Basophils % 0.2 %; Eosinophils # 0.1 K/mcL (0.0-0.6); Eosinophils % 0.9 %; Hematocrit 33.2 % (35.3-44.9); Hemoglobin 11.1 g/dL (11.5-15.4); Immature Granulocytes % 0.3 % (0-4); Lymphocytes # 2.5 K/mcL (0.6-4.6); Lymphocytes % 28.4 %; Mean Corpuscular HGB Conc 33.4 g/dL (31.6-35.5); Mean Corpuscular Hemoglobin 30.3 pg (28.0-33.3); Mean Corpuscular Volume 90.7 fL (83.0-100.0); Mean Platelet Volume 10.2 fL (9.4-12.4); Monocytes # 0.6 K/mcL (0.0-1.3); Monocytes % 6.6 %; Neutrophils # 5.6 K/mcL (1.6-8.9); Platelet Count 190 K/mcL (140-400); Red Blood Count 3.66 M/mcL (3.82-4.97); Red Cell Distribution Width 12.5 % (11.5-14.5); Segmented Neutrophils % 63.6 %
[2016-09-29 04:02] LABS: BUN/Creatinine Ratio 19 (6-26); Blood Urea Nitrogen 16 mg/dL (7-20); Calcium 7.6 mg/dL (8.6-10.8); Carbon Dioxide 20 mEq/L (19-29); Chloride 112 mEq/L (98-109); Glucose 85 mg/dL (70-99); Osmolality,Calculated 290 (280-300); Sodium 140 mEq/L (136-145); eGFR For African Americans > 60 (> 60); eGFR For Non-African Americans > 60 (> 60)
[2016-09-29 04:07] LABS: Potassium 3.8 mEq/L (3.5-4.5)
[2016-09-29 14:41] VITALS: BP 102/59
== END 2016-09-29 18:55 | disposition home health service (06) | DRG 328 ==
LOC: SAMDAY 11:53 → 3ANU 16:39
PROVIDERS: ADMIT Surgery; ATTEND Surgery

== ENCOUNTER 2017-07-06 11:59 | Inpatient (IN) ==
--- NOTE | 2017-07-06 12:26 | Emergency Department Note ---
Disposition Clinical Impression: PAM (acute kidney injury), Bradycardia, Dizziness, Weakness, Nausea alone CVA (cerebral vascular accident) Qualifiers: CVA mechanism: unspecified Qualified Code(s): I63.9 - Cerebral infarction, unspecified Disposition: Admitted As Inpatient Condition: Undetermined Time of Disposition: 17:10 Dizziness HPI - General Chief Complaint: ED Dizziness Stated Complaint: dizzy Time Seen by Provider: 07/06/17 12:05 Source: patient, family Mode of arrival: ambulatory Limitations: no limitations Nursing Notes Reviewed: Yes Vital Signs Reviewed: Yes - History of Present Illness HPI Narrative: 72-year-old female with 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 The patient states that she has been experiencing this dizziness that is worse with movement but states that even sitting still she is having constant dizziness. The patient is feeling very nauseated at this time as well. The patient denies any other complaints other than her baseline intermittent episodes of diarrhea and constipation where she says she has some blood streaked "paper. She denies any abdominal pain, difficulty breathing, chest pain. The patient denies any unilateral weakness and has no other neurologic deficits noted. She denies any other complaints of fevers, chills. Pt Subjective Complaint: dizziness Onset (ago): week(s) (3) Timing: gradual onset, constant Description: sense of movement History of similar episodes: No History of trauma: No Severity: moderate Improves with: nothing Worsens with: movement, position Associated symptoms: Reports: nausea, other (Headache) - Related Data Home Medications Medication Instructions Recorded Confirmed Albuterol Sulfate [Albuterol 2 puff IH Q6HR PRN 05/06/15 07/06/17 Inhaler] Atorvastatin [Lipitor] 20 mg PO HS 05/06/15 07/06/17 Clopidogrel [Plavix] 75 mg PO DAILY 05/06/15 07/06/17 Ergocalciferol (VITAMIN D2) 50,000 unit PO MOWETHSA 05/06/15 07/06/17 [Vitamin D2 (50,000 UNIT)] Ropinirole HCl [Requip] 2 mg PO HS 05/06/15 07/06/17 Cyanocobalamin (B-12) [Vitamin B12] 1,000 mcg IM QMONTH 04/14/16 12/06/17 Potassium Chloride [K-Tab ER] 10 meq PO DAILY 11/13/15 07/06/17 Scopolamine Patch [Transderm-Scop] 1.5 mg TD Q72H 11/13/15 07/06/17 LevETIRAcetam [Keppra Xr] 1,000 mg PO HS 04/29/16 07/06/17 Zolpidem Tartrate [Ambien Cr] 12.5 mg PO HS PRN 04/29/16 07/06/17 Nitroglycerin 1 - 2 spr PO ONCE PRN 07/01/16 07/06/17 SUMAtriptan succinate [Imitrex] 50 mg PO DAILY PRN 07/01/16 07/06/17 Spironolactone [Aldactone] 25 mg PO TID 07/01/16 07/06/17 cloNIDine HCl [CloNIDine HCl] 0.1 mg PO DAILY PRN 07/01/16 07/06/17 FLUoxetine HCl [Fluoxetine HCl] 40 mg PO QAM 07/27/16 07/06/17 Fluticasone Propionate [Flovent 2 puff IH BID 07/27/16 07/06/17 Hfa] Mupirocin Calcium [Bactroban] 1 appl TP TID PRN 07/27/16 07/06/17 GuaiFENesin/Dextromethorphan 1 tab PO BID 09/27/16 07/06/17 [Mucinex DM] Nystatin Cream [Mycostatin Cream] 1 appl TP BID 09/27/16 07/06/17 Promethazine [Phenergan] 50 mg RC Q6HR PRN 09/27/16 07/06/17 Docusate [Colace] 100 mg PO DAILY PRN 11/16/16 07/06/17 Furosemide [Lasix] 20 mg PO DAILY PRN 07/06/17 07/06/17 Propranolol LA (24 HR) [Inderal LA] 80 mg PO DAILY 07/06/17 07/06/17 Previous Rx's Medication Instructions Recorded Dronabinol [Marinol] 10 mg PO BID #8 capsule 07/30/16 Allergies Allergy/AdvReac Type Severity Reaction Status Date / Time prednisone Allergy Unknown unknown Verified 07/06/17 15:28 salicylates [Salicylate] Allergy Unknown unknown Verified 07/06/17 15:28 acetaminophen AdvReac Intermediate See Verified 07/06/17 15:28 [From Lily] Comments adhesive AdvReac Unknown Blister Verified 07/06/17 15:28 aspirin AdvReac Unknown bleeding Verified 07/06/17 15:28 divalproex sodium AdvReac Unknown hallucinati Verified 07/06/17 15:28 on metoclopramide AdvReac Unknown Nausea Verified 07/06/17 15:28 ondansetron AdvReac Unknown Nausea Verified 07/06/17 15:28 propoxyphene AdvReac Unknown feeling of Verified 07/06/17 15:28 bugs crawling adhesive tape AdvReac Blister Verified 07/06/17 15:28 ibuprofen AdvReac Nausea Verified 07/06/17 15:28 stool softener AdvReac Unknown Shakiness Uncoded 07/06/17 15:28 All systems ED: reviewed and negative except as stated. Constitutional: Denies: fever, chills, weakness ENT ED: Denies: congestion Cardiovascular: Denies: chest pain Respiratory: Denies: dyspnea Gastrointestinal: Reports: nausea. Denies: abdominal pain Musculoskeletal: Denies: back pain, neck pain Neurological: Reports: headache. Denies: weakness, numbness, paresthesias, confusion Past Medical History - Past Medical History Attestation: Yes The following information was validated with the patient. Source: patient Medical history: Reports: asthma, coronary artery disease, hypertension, migraine, myocardial infarction, osteoporosis, seizures, SVT, other Surgical history: Reports: angioplasty/stent, cholecystectomy, hysterectomy, orthopedic, other (Pelvic/Left hip & tailbone fracture 08/2016), other Psychiatric history: Reports: anxiety, depression - Social History Smoking Status: Current every day smoker Smokeless Tobacco Status: No Alcohol use: Reports: none Drug use: Reports: none Physical Exam - General Limitations: no limitations General appearance: alert, in no apparent distress - Head Head exam: atraumatic, normocephalic, normal inspection - Eye Eye exam: Present: normal appearance, PERRL, EOMI, other (mild watering of right eye) - ENT ENT exam: normal exam, normal oropharynx, mucous membranes moist - Neck Neck exam: Present: normal inspection, full ROM, trachea midline - Chest Chest inspection: Present: normal inspection, symmetric chest wall rise - Respiratory Respiratory exam: Present: normal lung sounds bilaterally - Cardiovascular Cardiovascular exam: Present: normal rhythm, bradycardia, normal heart sounds - Abdominal Exam Abdominal exam: Present: soft, Non-Tender. Absent: tenderness, distention, guarding, rebound, rigidity - Extremities Exam Extremities exam: Present: normal inspection, full ROM. Absent: tenderness, pedal edema - Neurological Exam Neurological exam: Present: alert, oriented X3, CN II-XII intact, normal gait - Expanded Neurological Exam Patient oriented to: Present: person, place, time Speech: Present: fluid speech Cranial nerves: EOM function (II, III, IV, ): Normal, facial sensation (V): Normal, facial palsy (VII): Normal Motor strength - LUE: 4/5 Motor strength - RUE: 4/5 Motor strength - LLE: 4/5 Motor strength - RLE: 4/5 Sensory exam upper extremity: light touch: Normal Sensory exam lower extremity: light touch: Normal Coma Scale Eye Opening: Spontaneous Coma Scale Motor Response: Obeys Commands Coma Scale Verbal Response: Oriented Coma Scale Total: 15 Course - Reevaluation(s) Reevaluation #1: Patient awoke from sleep just prior to attending walking the room after falling asleep at roughly 1530 the patient began experiencing perioral numbness, right lower shoulder weakness and slurring of her speech that is new. At this time we called a stroke alert. Time: 15:57 Reevaluation #2: Reevaluation of the patient while awaiting speaking to [facility], the patient's speech is no longer slurred and the patient is alert and oriented at-bat at baseline. The patient has noted some rectal bleeding over the past 5 days, which is likely related to irritation of anus from wiping, and she has an AVM in the posterior aspect of her brain. I feel as though she is not a TPA candidate. The patient still has right lower extremity weakness. Time: 16:20 Reevaluation #3: After speaking to [facility] neurology they stated the patient is not a TPA candidate both for her low NIH as well as the contraindications of an AVM as well as possible rectal bleeding and improvement of her symptoms. The patient will be admitted to [facility] emergency department for further workup and care. I spoke to the hospitalist who agreed to accept the patient, Dr. Tovar. In addition the patient has an AK eye that appears new. She was administered 2 L of IV fluids here in the emergency department. Time: 17:10 Vital Signs Temperature 98.5 F 07/06/17 12:01 Pulse Rate 54 07/06/17 12:01 Respiratory Rate 16 07/06/17 12:01 Blood Pressure 100/67 07/06/17 12:01 O2 Sat by Pulse Oximetry 99 07/06/17 12:01 Temperature 97.6 F 07/06/17 19:22 Pulse Rate 46 07/06/17 20:17 Respiratory Rate 18 07/06/17 19:22 Blood Pressure 98/54 07/06/17 20:17 O2 Sat by Pulse Oximetry 99 07/06/17 19:22 Oxygen Delivery Oxygen Delivery Room Air Dizziness - MDM Narrative Medical decision making narrative: Workup here in the emergency department demonstrates an PAM. Given the patient' s symptoms of dizziness as well as her bradycardia is likely medication induced I am concerned about this being the etiology. In addition the patient has this history of AVM which a CTA of the patient's head and neck demonstrated no acute process. At this time with the patient's AK I, and current symptoms, we will admit the patient to the hospitalist for further care and workup. The patient' s troponin is negative for any acute findings. I do not feel as this is cardiac in nature and the fact that she does have a history of ACS but I cannot definitively rule this out. She denies any chest pain denies any difficulty breathing. The patient was made aware and agrees to plan. The patient was observed in the emergency Department ambulating and required a quite a bit of assistance with ambulation. Given the patient's living situation I again also do not feel the patient is safe to be discharged home at this time. - Lab Data Lab results reviewed: Yes I reviewed the patient's lab results. Result diagrams: 07/06/17 13:05 07/06/17 13:05 Lab Results 07/06/17 07/06/17 07/06/17 Range/Units 13: 13:05 13:05 WBC 10.3 (4.3-11.1) K/mcL RBC 4.49 (3.82-4.97) M/mcL Hgb 13.3 (11.5-15.4) g/dL Hct 39.3 (35.3-44.9) % MCV 87.5 (83.0-100.0) fL MCH 29.6 (28.0-33.3) pg MCHC 33.8 (31.6-35.5) g/dL RDW 12.5 (11.5-14.5) % Plt Count 257 (140-400) K/mcL MPV 11.3 (9.4-12.4) fL Immature Gran % 0.6 (0-4) % Seg Neutrophils % 74.7 % Lymphocytes % 17.1 % Monocytes % 4.8 % Eosinophils % 2.2 % Basophils % 0.6 % Neutrophils # 7.7 (1.6-8.9) K/mcL Lymphocytes # 1.8 (0.6-4.6) K/mcL Monocytes # 0.5 (0.0-1.3) K/mcL Eosinophils # 0.2 (0.0-0.6) K/mcL Basophils # 0.1 (0.0-0.2) K/mcL PT (9.4-12.1) Seconds INR APTT (26.0-36.0) Seconds Sodium 137 (136-145) mEq/L Potassium 4.3 (3.5-4.5) mEq/L Chloride 102 (98-109) mEq/L Carbon Dioxide 27 (19-29) mEq/L BUN 30 H (7-20) mg/dL Creatinine 1.27 H (0.57-1.11) mg/dL Est GFR ( Amer) 50 L (> 60) Est GFR (Non-Af Amer) 41 L (> 60) BUN/Creatinine Ratio 24 (6-26) Glucose 106 H (70-99) mg/dL POC Glucose (58-89) Calculated Osmolality 291 (280-300) Calcium 9.5 (8.6-10.8) mg/dL Total Bilirubin 0.8 (0.2-1.2) mg/dL AST 20 (5-34) Units/L ALT 22 (0-55) Units/L Alkaline Phosphatase 62 (38-126) Units/L Troponin I 0.01 (0-0.03) ng/mL Serum Total Protein 6.9 (6.0-8.3) g/dL Albumin 4.1 (3.5-5.0) g/dL Globulin 2.8 (2.4-3.5) g/dL Albumin/Globulin Ratio 1.5 (1.1-2.2) Urine Color (Yellow) Urine Clarity (Clear) Urine pH (5.0-8.0) pH Units Ur Specific Kathryn (1.010-1.025) Urine Protein (Neg-Trace) mg/dL Urine Glucose (UA) (Normal) mg/dL Urine Ketones (Negative) mg/dL Urine Blood (Negative) Urine Nitrite (Negative) Urine Bilirubin (Negative) Urine Urobilinogen (Normal) mg/dL Ur Leukocyte Esterase (Negative) Urine Microscopic RBC (0-3) per hpf Urine Microscopic WBC (0-3) per hpf Ur Squamous Epith Cells (None-Few) per lpf Urine Bacteria (None-Few) per hpf Hyaline Casts (None-Few) per lpf Ur Culture Indicated? (NO) 07/06/17 07/06/17 07/06/17 Range/Units 13:05 13:28 15:58 WBC (4.3-11.1) K/mcL RBC (3.82-4.97) M/mcL Hgb (11.5-15.4) g/dL Hct (35.3-44.9) % MCV (83.0-100.0) fL MCH (28.0-33.3) pg MCHC (31.6-35.5) g/dL RDW (11.5-14.5) % Plt Count (140-400) K/mcL MPV (9.4-12.4) fL Immature Gran % (0-4) % Seg Neutrophils % % Lymphocytes % % Monocytes % % Eosinophils % % Basophils % % Neutrophils # (1.6-8.9) K/mcL Lymphocytes # (0.6-4.6) K/mcL Monocytes # (0.0-1.3) K/mcL Eosinophils # (0.0-0.6) K/mcL Basophils # (0.0-0.2) K/mcL PT 11.2 (9.4-12.1) Seconds INR 1.0 APTT 53.6 H (26.0-36.0) Seconds Sodium (136-145) mEq/L Potassium (3.5-4.5) mEq/L Chloride (98-109) mEq/L Carbon Dioxide (19-29) mEq/L BUN (7-20) mg/dL Creatinine (0.57-1.11) mg/dL Est GFR ( Amer) (> 60) Est GFR (Non-Af Amer) (> 60) BUN/Creatinine Ratio (6-26) Glucose (70-99) mg/dL POC Glucose 94 H (58-89) Calculated Osmolality (280-300) Calcium (8.6-10.8) mg/dL Total Bilirubin (0.2-1.2) mg/dL AST (5-34) Units/L ALT (0-55) Units/L Alkaline Phosphatase (38-126) Units/L Troponin I (0-0.03) ng/mL Serum Total Protein (6.0-8.3) g/dL Albumin (3.5-5.0) g/dL Globulin (2.4-3.5) g/dL Albumin/Globulin Ratio (1.1-2.2) Urine Color Yellow (Yellow) Urine Clarity Clear (Clear) Urine pH 6.0 (5.0-8.0) pH Units Ur Specific Kathryn 1.017 (1.010-1.025) Urine Protein Negative (Neg-Trace) mg/dL Urine Glucose (UA) Normal (Normal) mg/dL Urine Ketones Negative (Negative) mg/dL Urine Blood Negative (Negative) Urine Nitrite Negative (Negative) Urine Bilirubin Negative (Negative) Urine Urobilinogen Normal (Normal) mg/dL Ur Leukocyte Esterase Trace H (Negative) Urine Microscopic RBC 0-3 (0-3) per hpf Urine Microscopic WBC 0-3 (0-3) per hpf Ur Squamous Epith Cells Many H (None-Few) per lpf Urine Bacteria None Seen (None-Few) per hpf Hyaline Casts None Seen (None-Few) per lpf Ur Culture Indicated? YES A (NO) - Radiology Data Radiology results reviewed: Yes I reviewed the patient's radiology results. - EKG Data EKG attestation: Yes I reviewed and interpreted this EKG. EKG results narrative: Heart rate 48 bpm. SD interval 151 ms. QTc 421 ms. Normal axis. Sinus bradycardia. No ST elevation or ST depression noted. Attestation Statement - Attestation Attestation: I examined this patient and my medical decision-making was reviewed with the Resident Physician. I agree with the documented findings, disposition and treatment plan as described except to the extent set forth below. Patient complains of intermittent fuzzy feeling. Ultimately had CTA of the head and neck performed which showed no acute findings. She did have a history of aneurysm in the past. During her stay in the emergency department she developed right leg weakness and perioral anesthesia. A stroke alert was called at this time as the onset of symptoms was 30 minutes prior to her recognition of the symptoms. There is no intervention of the time. Her NIH score was 3. She is on Plavix. Repeat head CT shows no evidence of stroke. Her symptoms actually resolved. I do suspect TIA at this time. The neurologist from [facility] did evaluate the patient. Patient will be admitted to the hospital for further evaluation of possible TIA. NIH Stroke Scale - Level of Consciousness LOC: Alert - LOC Questions LOC Questions: Answers both correctly - LOC Commands LOC Commands: Performs both correctly - Best Gaze Best Gaze: Normal - Visual Visual: No visual loss - Facial Palsy Facial Palsy: Normal - Motor Arms Motor Arm-Left: No drift for 10 seconds Motor Arm-Right: No drift for 10 seconds - Motor Legs Motor Leg-Left: No drift for 5 seconds Motor Leg-Right: Some effort against gravity, limb drifts to bed - Limb Ataxia Limb Ataxia: Normal, No Ataxia - Sensory Sensory: Normal - Best Language Best Language: No aphasia - Dysarthria Dysarthria: Mild, slurs some words - Extinction and Inattention Extinction and Inattention: Normal - NIHSS Total Score NIHSS Total Score: 3
[2017-07-06] MEDS ORDERED: 0.9 % Sodium Chloride 1,000 ML IVC ONE ×3 (12:50→21:11)
[2017-07-06 13:17] LABS: Basophils # 0.1 K/mcL (0.0-0.2); Basophils % 0.6 %; Eosinophils # 0.2 K/mcL (0.0-0.6); Eosinophils % 2.2 %; Hematocrit 39.3 % (35.3-44.9); Hemoglobin 13.3 g/dL (11.5-15.4); Immature Granulocytes % 0.6 % (0-4); Lymphocytes # 1.8 K/mcL (0.6-4.6); Lymphocytes % 17.1 %; Mean Corpuscular HGB Conc 33.8 g/dL (31.6-35.5); Mean Corpuscular Hemoglobin 29.6 pg (28.0-33.3); Mean Corpuscular Volume 87.5 fL (83.0-100.0); Mean Platelet Volume 11.3 fL (9.4-12.4); Monocytes # 0.5 K/mcL (0.0-1.3); Monocytes % 4.8 %; Neutrophils # 7.7 K/mcL (1.6-8.9); Platelet Count 257 K/mcL (140-400); Red Blood Count 4.49 M/mcL (3.82-4.97); Red Cell Distribution Width 12.5 % (11.5-14.5); Segmented Neutrophils % 74.7 %
[2017-07-06 13:27] LABS: Albumin 4.1 g/dL (3.5-5.0); Albumin/Globulin Ratio 1.5 (1.1-2.2); Bilirubin,Total 0.8 mg/dL (0.2-1.2); Calcium 9.5 mg/dL (8.6-10.8); Globulin 2.8 g/dL (2.4-3.5); Potassium 4.3 mEq/L (3.5-4.5); Total Protein 6.9 g/dL (6.0-8.3)
[2017-07-06] MEDS ORDERED: *HR* Promethazine 25 MG/ML VIAL IVP ONE (13:28)
[2017-07-06 13:32] LABS: Bilirubin,Urine Negative (Negative); Blood,Urine Negative (Negative); Clarity,Urine Clear (Clear); Color,Urine Yellow (Yellow); Glucose,Urine (UA) Normal (Normal); Ketones,Urine Negative (Negative); Leukocyte Esterase,Urine Trace (Negative); Nitrite,Urine Negative (Negative); Protein,Urine Negative (Neg-Trace); Specific Gravity,Urine 1.017 (1.010-1.025); Urobilinogen,Urine Normal (Normal)
[2017-07-06 13:34] LABS: Bacteria,Urine None Seen per hpf (None-Few); Hyaline Casts,Urine None Seen per lpf (None-Few); RBC,Urine 0-3 per hpf (0-3); Squamous Epithelial Cell,Urine Many per lpf (None-Few); WBC,Urine 0-3 per hpf (0-3)
[2017-07-06 16:11] LABS: Prothrombin Time 11.2 Seconds (9.4-12.1)
[2017-07-06 16:14] LABS: Activated Partial Thrombo Time 53.6 Seconds (26.0-36.0)
[2017-07-06] MEDS ORDERED: 0.9 % Sodium Chloride 1,000 ML ONE (17:04)
[2017-07-06] MEDS ORDERED: Naloxone 0.4 MG/ML INJ IVP PRN (21:13)
[2017-07-06] MEDS ORDERED: *HR* Promethazine 25 MG/ML VIAL IM PRN (21:15)
--- NOTE | 2017-07-06 21:17 | Internal Med History&Physical ---
<Berenice Parkinson - Last Filed: 07/07/17 01:09> Date of Encounter: 07/07/17 Time of Encounter: 21:13 Assessment and Plan (1) Dizziness Current visit: Yes Status: Acute Patient reports dizziness that she describes as the room spinning for 3 weeks. Worse when rising to stand or sit, also with movement. Consider vertigo. Bradycardia and hypotension possibly secondary to medication may contribute. At admission patient had right arm weakness and stroke alert was called. [facility] physician did not want to do TPA because low NIH score and not candidate with AVM history and possible rectal bleed. Angio CT- no acture intracranial abnormality Neck CTA- no acture intracranial abnormality Head CT- no acture intracranial abnormality CXR- no acture intracranial abnormality Echo 07/30/2015 showed LVEF 60% , mild left diastolic dysfunction orthostatics ordered Echo pending meclizine phenergan fall precautions close monitoring of neoro status urine culture pending holding BP meds (2) Acute kidney injury Current visit: Yes Status: Acute Patient presents with PAM. Creatinine 1.27 May be pre-renal due to hypotension. IV fluid bolus hold home lasix and aldactone avoid nephrotoxic agents monitor renal function strict I/O (3) Bloody stools Current visit: Yes Status: Acute She reports 3 days of blood in her stools in the toilet. Today she has not had blood in her stool. She reports Dr. Staples performed a colonoscopy a few years ago that had polyps. She said she is due for another EGD now. Hemorrhoid removed after first but none since. Hgb 13.3 No active bleeding at this time. stool occult test ordered monitor H&H (4) Bradycardia Current visit: Yes Status: Acute Patient has been bradycardic. HR 49. BP 98/54 She reports she has not taken her blood pressure medications in 4 days. May have been medication related. Will hold her blood pressure medications Echo pending close hemodynamic monitoring IV fluids (5) History of arteriovenous malformation (AVM) Current visit: Yes Status: Acute Patient reports a history of AVM for which she had surgery on the anterior one, but still has a posterior one. (6) CAD (coronary artery disease) Current visit: No Status: Acute History of ME taking plavix and lipitor continue home medications Qualifiers: Coronary Disease-Associated Artery/Lesion type: [place] artery [place] vs. transplanted heart: [place] heart Associated angina: without angina Qualified Code(s): I25.10 - Atherosclerotic heart disease of [place] coronary artery without angina pectoris (7) DVT prophylaxis Current visit: No Status: Acute SCDP Internal Medicine - H&P: HPI Chief complaint: dizziness Admitted From: Emergency Dept Plans for Post Hospital Care: Home History of present illness: Ms. Nelson is a 72 year old female with past medical history of AVM, [place] 2 stent, hyperlipidemia, seizure who presented to the ED complaining of dizziness present for 3 weeks. She describes as the room is spinning. She stated that it is constant however is better when she is sitting down not moving, and worse when she is moving or changing sitting and standing position. She stated that she can only walk a short distance until she has to stop to steady herself. She came to the ED today because she went to [facility] this morning and the nurse practitioner was concerned for possible stroke and had the patient go to the ED. She has had a posterior headache, fatigue, nausea, diarrhea, hematachezia. She has had blood in her stool in the toilet bowl and on toilet paper for the past 3-4 days but not today. She denies a history of hemorrhoids. Her last EGD was 3yr ago by Dr. Staples, and was found to have polyps, she stated that she is currently due for her next colonoscopy. She denies fever, chills, confusion, chest pain, palpitations, vomiting, abdominal pain. She denies falls , trauma. She stated that she has never had vertigo. She has a port because she does not have "good veins", she has gotten medications, blood drawn for lab, and blood transfusion when her hemoglobin was low. She is treated for anemia by Dr. Jc at the cancer center. Dr. Skinner is her PCP. Past Med Surg Social Fam HX - Past Medical History Medical history: asthma, coronary artery disease, hypertension, migraine, myocardial infarction, osteoporosis, seizures, SVT, other Psychiatric history: anxiety, depression - Past Surgical History Surgical History: angioplasty/stent, cholecystectomy, hysterectomy, orthopedic, other, other - Social History Smoking Status: Current every day smoker Smokeless Tobacco Status: No Alcohol use: none Drug use: none Activity Level: Independent ambulation - Family History Mother Adopted: No Family Member Ethnicity: Non- Living Status: Hx Family Cardiac Disorders: Yes Hx Family Respiratory Disorders: Yes Hx Family Cancer: Yes Hx Family GI Disorders: Yes Hx Family Endocrine Disorder: No Hx Family Neuromuscular Disorders: No Hx Family Neurologic Disorders: No Hx Family HEENT Disorders: No Hx Family Autoimmune Disorders: No Father Hx Family Cardiac Disorders: Yes (ME) Hx Family Cancer: Yes (lung cancer) Internal Medicine - H&P: Meds Albuterol Sulfate [Albuterol Inhaler] 2 puff IH Q6HR PRN 05/06/15 [History] Atorvastatin [Lipitor] 20 mg PO HS 05/06/15 [History] Clopidogrel [Plavix] 75 mg PO DAILY 05/06/15 [History] Ergocalciferol (VITAMIN D2) [Vitamin D2 (50,000 UNIT)] 50,000 unit PO MOWETHSA 05/06/15 [History] Ropinirole HCl [Requip] 2 mg PO HS 05/06/15 [History] Cyanocobalamin (B-12) [Vitamin B12] 1,000 mcg IM QMONTH 11/13/15 [History] Potassium Chloride [K-Tab ER] 10 meq PO DAILY 11/13/15 [History] Scopolamine Patch [Transderm-Scop] 1.5 mg TD Q72H 11/13/15 [History] LevETIRAcetam [Keppra Xr] 1,000 mg PO HS 04/29/16 [History] Zolpidem Tartrate [Ambien Cr] 12.5 mg PO HS PRN 04/29/16 [History] Nitroglycerin 1 - 2 spr PO ONCE PRN 07/01/16 [History] SUMAtriptan succinate [Imitrex] 50 mg PO DAILY PRN 07/01/16 [History] Spironolactone [Aldactone] 25 mg PO TID 07/01/16 [History] cloNIDine HCl [CloNIDine HCl] 0.1 mg PO DAILY PRN 07/01/16 [History] FLUoxetine HCl [Fluoxetine HCl] 40 mg PO QAM 07/27/16 [History] Fluticasone Propionate [Flovent Hfa] 2 puff IH BID 07/27/16 [History] Mupirocin Calcium [Bactroban] 1 appl TP TID PRN 07/27/16 [History] Dronabinol [Marinol] 10 mg PO BID #8 capsule 07/30/16 [Rx] GuaiFENesin/Dextromethorphan [Mucinex DM] 1 tab PO BID 09/27/16 [History] Nystatin Cream [Mycostatin Cream] 1 appl TP BID 09/27/16 [History] Promethazine [Phenergan] 50 mg RC Q6HR PRN 09/27/16 [History] Docusate [Colace] 100 mg PO DAILY PRN 11/16/16 [History] Furosemide [Lasix] 20 mg PO DAILY PRN 07/06/17 [History] Propranolol LA (24 HR) [Inderal LA] 80 mg PO DAILY 07/06/17 [History] 3 Allergy/AdvReac Type Severity Reaction Status Date / Time prednisone Allergy Unknown unknown Verified 07/06/17 15:28 salicylates [Salicylate] Allergy Unknown unknown Verified 07/06/17 15:28 acetaminophen AdvReac Intermediate See Verified 07/06/17 15:28 [From Lily] Comments adhesive AdvReac Unknown Blister Verified 07/06/17 15:28 aspirin AdvReac Unknown bleeding Verified 07/06/17 15:28 divalproex sodium AdvReac Unknown hallucinati Verified 07/06/17 15:28 on metoclopramide AdvReac Unknown Nausea Verified 07/06/17 15:28 ondansetron AdvReac Unknown Nausea Verified 07/06/17 15:28 propoxyphene AdvReac Unknown feeling of Verified 07/06/17 15:28 bugs crawling adhesive tape AdvReac Blister Verified 07/06/17 15:28 ibuprofen AdvReac Nausea Verified 07/06/17 15:28 stool softener AdvReac Unknown Shakiness Uncoded 07/06/17 15:28 All Systems PM: A 10-system review of systems was performed and is negative for pertinent findings except as documented above in the HPI. - Constitutional Constitutional: no chills, no fever(s), no falls - EENT Eyes: change in vision, no blurry vision, no irritation, no loss of peripheral vision, no loss of vision, no seeing flashes, no spots in vision - Cardiovascular Cardiovascular ROS IM: no chest pain, no diaphoresis, no palpitations, no syncope - Respiratory Respiratory: no cough, no dyspnea, no wheezing, no stridor - Gastrointestinal Gastrointestinal: diarrhea, hematochezia, nausea, no abdominal pain, no vomiting - Genitourinary Genitourinary: no dysuria, no urinary incontinence, no urinary urgency - Musculoskeletal Musculoskeletal ROS IM: no joint swelling, no muscle cramps - Integumentary Integumentary IM: no rash - Neurological Neurological ROS: headache(s), vertigo, no abnormal speech, no confusion, no frequent falls, no loss of vision - Constitutional Vitals: Temp Pulse Resp BP Pulse Ox 97.6 F 46 18 98/54 99 07/06/17 19:22 07/06/17 20:17 07/06/17 19:22 07/06/17 20:17 07/06/17 19:22 General appearance: Present: A&O X 3, pleasant, no acute distress - Head Head exam: Present: atraumatic, normocephalic - Eye Eye exam: Present: conjunctival injection, normal appearance. Absent: nystagmus , scleral icterus - ENT ENT exam: Present: mucous membranes moist, normal exam - Neck Neck exam general surgery: Present: supple. Absent: lymphadenopathy, tenderness - Respiratory Respiratory exam: Present: CTAB. Absent: rales, rhonchi - Cardiovascular Cardiovascular exam: Present: bradycardia, +S1, +S2 - GI/Abdominal GI/Abdominal exam: Present: normal bowel sounds, soft. Absent: guarding, tenderness - Extremities Exam Extremities exam: Present: normal inspection. Absent: cyanotic, tenderness - Neurological Exam Neurological exam: Present: alert, normal gait, oriented X3. Absent: altered, strengths equal and symetr throughout (right lower extremity weaker), facial droop, speech deficit - Skin Skin exam: Present: dry, intact Internal Med - H&P Results - Labs CBC & Chem 7: 07/06/17 13:05 07/06/17 13:05 <Demetrio Kaba - Last Filed: 07/07/17 01:27> Date of Encounter: 07/06/17 Internal Medicine - H&P: HPI History of present illness: Ms. Nelson is a 72 year old female All Systems PM: A 10-system review of systems was performed and is negative for pertinent findings except as documented above in the HPI. - Constitutional Vitals: Temp Pulse Resp BP Pulse Ox 97.8 F 52 16 84/44 98 07/07/17 00:55 07/07/17 01:12 07/07/17 00:55 07/07/17 01:12 07/07/17 00:55 Internal Med - H&P Results - Labs CBC & Chem 7: 07/06/17 13:05 07/06/17 13:05 - Attending Attestation I examined this patient and my medical decision-making was reviewed with the Resident Physician. I agree with the documented findings, disposition and treatment plan as described except to the extent set forth below. I have seen and examined the patient. Patient is a 72-year-old female with past medical history of coronary artery disease, hyperlipidemia, seizure disorder, osteoporosis, anxiety, depression and hypertension. Patient presents to the ED with complaints of dizziness. She also complains of bright red blood in her stool. H&H is stable. She has no active bleeding at this time. Initial imaging of the head including CT angiogram of the head and neck is negative. Patient did have a stroke alert in the ED, and TPA was not recommended due to low NIH score. Dizziness could possibly due to vertigo or orthostatic hypotension. Patient's medications may also be contributing to her hypotension and dizziness. Patient has been explained about her condition and plan of care in detail. She understood and agreed. No unanswered questions. CODE STATUS full code.
[2017-07-07] MEDS ORDERED: 0.9 % Sodium Chloride 1,000 ML ONE (00:04)
[2017-07-07] MEDS: 0.9 % Sodium Chloride 1,000 ML IVC SCH ×2 (00:05→04:14)
[2017-07-07] MEDS ORDERED: 0.9 % Sodium Chloride 500 ML IVC ONE (02:53)
[2017-07-07 04:20] LABS: Basophils % 0.4 %; Eosinophils # 0.2 K/mcL (0.0-0.6); Eosinophils % 3.7 %; Hematocrit 31.6 % (35.3-44.9); Immature Granulocytes % 0.4 % (0-4); Lymphocytes % 35.8 %; Mean Corpuscular HGB Conc 33.5 g/dL (31.6-35.5); Mean Corpuscular Hemoglobin 30.2 pg (28.0-33.3); Mean Platelet Volume 11.5 fL (9.4-12.4); Monocytes # 0.5 K/mcL (0.0-1.3); Monocytes % 8.5 %; Neutrophils # 2.9 K/mcL (1.6-8.9); Platelet Count 180 K/mcL (140-400); Red Blood Count 3.51 M/mcL (3.82-4.97); Red Cell Distribution Width 12.7 % (11.5-14.5); Segmented Neutrophils % 51.2 %
[2017-07-07 04:26] LABS: Hemoglobin 10.6 g/dL (11.5-15.4)
[2017-07-07 04:31] LABS: BUN/Creatinine Ratio 25 (6-26); Blood Urea Nitrogen 21 mg/dL (7-20); Calcium 7.2 mg/dL (8.6-10.8); Carbon Dioxide 20 mEq/L (19-29); Chloride 114 mEq/L (98-109); Glucose 85 mg/dL (70-99); Osmolality,Calculated 298 (280-300); Potassium 3.9 mEq/L (3.5-4.5); Sodium 143 mEq/L (136-145); eGFR For African Americans > 60 (> 60); eGFR For Non-African Americans > 60 (> 60)
--- NOTE | 2017-07-07 05:55 | Event Note ---
Date of Encounter: 07/07/17 Time of Encounter: 05:30 Patient has been hypotensive during the night. She has received 1 liter bolus of normal saline and is on maintenance fluids and 100 mL per hour. Patient likely has orthostatic hypotension. Unclear as to why her hypotension has been persistent. We will try another 1 L bolus of normal saline. Patient is otherwise awake and alert. Not in any distress. Denies chest pain or shortness of breath. Good urine output. Patient is also bradycardic. Sinus bradycardia on EKG. There is no suspicion for sepsis at this time. We have held all blood pressure medications. If she does not respond to fluid bolus, we can add 1 dose of either Florinef or Midodrine. Patient does not have any active bleeding. Monitor H&H closely. Type and screen. Monitor closely.
[2017-07-07 06:30] LABS: Hematocrit 30.7 % (35.3-44.9); Hemoglobin 10.1 g/dL (11.5-15.4)
[2017-07-07] MEDS: FLUoxetine 20 MG CAPSULE PO SCH (08:07)
--- NOTE | 2017-07-07 10:36 | Internal Med Progress Note ---
Date of Encounter: 07/07/17 Time of Encounter: 09:50 - Assessment and plan (1) Hypotension Current Visit: Yes Status: Acute Assessment and plan: Pt has history of hypertension and reports of being on Clonidine 0.1mg qd, Lasix 20mg qd, Propranolol 80mg qd, Spironolactone 25mg TID at home Holding all antihypertensive medications at this time pt responded well to IVF D/C IV fluids at this time due to history of Diastolic CHF No signs of volume overload at this time will closely monitor BP and maintain MAP>65 Qualifiers: Hypotension type: unspecified hypotension type Qualified Code(s): I95.9 - Hypotension, unspecified (2) Dizziness Current Visit: Yes Status: Acute Assessment and plan: Persistent dizziness/vertigo when she tries to get up Head CT, CTA head & neck unremarkable Neurology evaluation requested continue Meclizine prn dizziness fall precautions (3) Bradycardia Current Visit: Yes Status: Acute Assessment and plan: continue to hold BB clinically asymptomatic will continue to monitor (4) CHF (congestive heart failure) Current Visit: Yes Status: Chronic Assessment and plan: No clinical signs of decompensation holding lasix at this time given labile BP readings Qualifiers: Congestive heart failure type: diastolic Congestive heart failure chronicity: chronic Qualified Code(s): I50.32 - Chronic diastolic (congestive ) heart failure (5) CAD (coronary artery disease) Current Visit: No Status: Acute Assessment and plan: no signs of angina present at this time continue Plavix, statin Qualifiers: Coronary Disease-Associated Artery/Lesion type: [place] artery [place] vs. transplanted heart: [place] heart Associated angina: without angina Qualified Code(s): I25.10 - Atherosclerotic heart disease of [place] coronary artery without angina pectoris (6) COPD (chronic obstructive pulmonary disease) Current Visit: No Status: Chronic Assessment and plan: no signs of exacerbation continue home meds Qualifiers: COPD type: chronic bronchitis Chronic bronchitis type: mixed simple and mucopurulent Qualified Code(s): J41.8 - Mixed simple and mucopurulent chronic bronchitis (7) History of arteriovenous malformation (AVM) Current Visit: Yes Status: Chronic (8) DVT prophylaxis Current Visit: No Status: Acute Assessment and plan: SCD - Subjective Interval history: Patient seen and examined at bedside. Resting in bed and reports of improvement in her dizziness at rest. States the dizziness continues to worsen anytime she gets up. Orthostatics negative Pt noted to be hypotensive overnight and responding appropriately to IVF Currently BP improved. She states she has been holding her BP meds at home for the last few days due to her low BP readings Denies any n/v/headache at this time Neurology evaluation requested given persistent vertigo despite negative work up - Constitutional Vitals: Temp Pulse Resp BP Pulse Ox 97.8 F 50 18 95/57 97 07/07/17 07:23 07/07/17 07:23 07/07/17 07:23 07/07/17 07:23 07/07/17 07:23 General appearance: Present: A&O X 3, pleasant, no acute distress, answers questions appropriately - Head Head exam: Present: atraumatic, normocephalic - Eye Eye exam: Present: conjuntiva pink, sclera anicteric - Respiratory Respiratory exam: Present: CTAB. Absent: respiratory distress, wheezes - Cardiovascular Cardiovascular exam: Present: bradycardia, +S1, +S2. Absent: diastolic murmur, systolic murmur - GI/Abdominal GI/Abdominal exam: Present: normal bowel sounds, soft, no peritoneal signs. Absent: distended, tenderness - Extremities Exam Extremities exam: Present: warm, radial pulses palpable and symmetrical. Absent : calf tenderness, pedal edema - Neurological Exam Neurological exam: Present: alert, oriented X3 Internal Medicine: Result - Labs CBC & Chem 7: 07/07/17 06:17 07/07/17 04:10 Labs: Short CBC 07/07/17 07/07/17 Range/Units 04:10 06:17 WBC 5.7 (4.3-11.1) K/mcL Hgb 10.6 L D 10.1 L (11.5-15.4) g/dL Hct 31.6 L 30.7 L (35.3-44.9) % Plt Count 180 (140-400) K/mcL Neutrophils # 2.9 (1.6-8.9) K/mcL BMP 07/07/17 04:10 Sodium 143 Potassium 3.9 Chloride 114 H Carbon Dioxide 20 BUN 21 H Creatinine 0.83 Glucose 85 Calcium 7.2 L D - ABG Interpretation ABG results: PT/INR, D-dimer PT 11.2 Seconds (9.4-12.1) 12/06/17 13:05 - VTE Documentation of Mechanical Device: Intermittent pneumatic compression device Consult Discharge Plan - Plan Referrals: Noé Skinner MD [Primary Care Provider] -
[2017-07-07] MEDS ORDERED: Ipratropium/Albuterol Neb 3 ML IH PRN (10:44)
[2017-07-07] MEDS ORDERED: 0.9 % Sodium Chloride 1,000 ML IVC SCH (10:45)
[2017-07-07] MEDS ORDERED: *HR* Promethazine 25 MG/ML VIAL ONE (11:14)
[2017-07-07] MEDS: *HR* Promethazine 25 MG/ML VIAL IVP PRN ×2 (11:17→20:16)
--- NOTE | 2017-07-07 18:13 | Neurology - Consult Note ---
Date of Encounter: 07/07/17 Time of Encounter: 18:03 Assessment and Plan (1) Dizziness Current Visit: Yes Status: Acute The dizziness is described as lightheadedness usually provoked by getting up from horizontal position, associated with finding of hypotension and it appears that those spells are almost reproducible by standing up from horizontal position and lying down would ameliorate the dizziness. The observation that she develops bradycardia with hypotension may indicate some autonomic dysfunction but i do not believe these are neurologically mediated. These spells do not sound epileptic and her seizures have been under well controlled with the uss keppra 1000mg. Patient does not feel that Keppra is causing her fatigue or hypotension since she has been on the medicine for long while. She lives alone therefore reduced oral intake and dehydration may contribute to the situation. I would recommend treating her hypotension and possible autonomic dysfunction and the extreme fatigue and persistent hypotension may suggest hypo adrenal dysfunction but i would defer to medical team for further evaluation and treatment. No further testing will be recommended from neurology perspective. please call if any questions History of Present Illness Chief complaint: dizziness HPI: Ms. Nelson is a 72 year old female with PMH significant for chronic mausea, vomiting, CAD, history of AVM, s/p AVM surgery, with left frontal encephalomalacia, RLS, anemia, Depression, nutritional and vitamin deficiency syndrome, lumbar stenosis, HTN, who developed worsening dizziness. Patient is able to provide good history of her present illness. She states that about 2-3 weeks ago she started experiencing dizziness, what she described as 'wooziness' that usually occur when she gets up. She states that when she lies in bed she does not have dizziness. If she then lay down the dizziness would disappear. This is not a vertiginous feeling. No hearing loss or tinnitus. She says that when she gets up she would be woozy and be nauseated. The dizziness has not been getting better therefore she is being admitted for evaluation and treatment. Beside the dizziness she feels so tired which is unusual for her. She states that she lives in a big house and that she likes to keep her house neat. She has history of cerebral AVM found due to her having quite severe headaches. She had AVM surgery which was successful. She says that after the surgery she could easily get mad. She states that her blood pressure has been running low and when she gets low blood pressure her heart rate goes down too. Her BP was running between 80-[address] of head showed no acute intracranial abnormality. She has left frontal encephalomalacia. She has mild occipital headache, not as severe. CTA of head and brain reported normal studies, no critical arterial stenosis reported. She states that after the AVM surgery she has had grand mal type of seizures. She has been taking keppra 1000mg bid for seizures and denies any significant side effects. She does not feel keppra is causing her fatigue Past Med Surg Social Fam HX - Past Medical History Medical history: asthma, coronary artery disease, hypertension, migraine, myocardial infarction, osteoporosis, seizures, SVT, other Psychiatric history: anxiety, depression - Past Surgical History Surgical History: angioplasty/stent, cholecystectomy, hysterectomy, orthopedic, other, other - Social History Smoking Status: Current every day smoker Smokeless Tobacco Status: No Alcohol use: none Drug use: none - Family History Father Hx Family Cardiac Disorders: Yes (CT) Hx Family Cancer: Yes (lung cancer) Mother Adopted: No Family Member Ethnicity: Non- Living Status: Hx Family Cardiac Disorders: Yes Hx Family Respiratory Disorders: Yes Hx Family Cancer: Yes Hx Family GI Disorders: Yes Hx Family Endocrine Disorder: No Hx Family Neuromuscular Disorders: No Hx Family Neurologic Disorders: No Hx Family HEENT Disorders: No Hx Family Autoimmune Disorders: No Medications and Allergies Albuterol Sulfate [Albuterol Inhaler] 2 puff IH Q6HR PRN 05/06/15 [History] Atorvastatin [Lipitor] 20 mg PO HS 05/06/15 [History] Clopidogrel [Plavix] 75 mg PO DAILY 05/06/15 [History] Ergocalciferol (VITAMIN D2) [Vitamin D2 (50,000 UNIT)] 50,000 unit PO MOWETHSA 05/06/15 [History] Ropinirole HCl [Requip] 2 mg PO HS 05/06/15 [History] Cyanocobalamin (B-12) [Vitamin B12] 1,000 mcg IM QMONTH 11/13/15 [History] Potassium Chloride [K-Tab ER] 10 meq PO DAILY 11/13/15 [History] Scopolamine Patch [Transderm-Scop] 1.5 mg TD Q72H 11/13/15 [History] LevETIRAcetam [Keppra Xr] 1,000 mg PO HS 04/29/16 [History] Zolpidem Tartrate [Ambien Cr] 12.5 mg PO HS PRN 04/29/16 [History] Nitroglycerin 1 - 2 spr PO ONCE PRN 07/01/16 [History] SUMAtriptan succinate [Imitrex] 50 mg PO DAILY PRN 07/01/16 [History] Spironolactone [Aldactone] 25 mg PO TID 07/01/16 [History] cloNIDine HCl [CloNIDine HCl] 0.1 mg PO DAILY PRN 07/01/16 [History] FLUoxetine HCl [Fluoxetine HCl] 40 mg PO QAM 07/27/16 [History] Fluticasone Propionate [Flovent Hfa] 2 puff IH BID 07/27/16 [History] Mupirocin Calcium [Bactroban] 1 appl TP TID PRN 07/27/16 [History] Dronabinol [Marinol] 10 mg PO BID #8 capsule 07/30/16 [Rx] GuaiFENesin/Dextromethorphan [Mucinex DM] 1 tab PO BID 09/27/16 [History] Nystatin Cream [Mycostatin Cream] 1 appl TP BID 09/27/16 [History] Promethazine [Phenergan] 50 mg RC Q6HR PRN 09/27/16 [History] Docusate [Colace] 100 mg PO DAILY PRN 11/16/16 [History] Furosemide [Lasix] 20 mg PO DAILY PRN 07/06/17 [History] Propranolol LA (24 HR) [Inderal LA] 80 mg PO DAILY 07/06/17 [History] 3 Allergy/AdvReac Type Severity Reaction Status Date / Time prednisone Allergy Unknown unknown Verified 07/06/17 15:28 salicylates [Salicylate] Allergy Unknown unknown Verified 07/06/17 15:28 acetaminophen AdvReac Intermediate See Verified 07/06/17 15:28 [From Lily] Comments adhesive AdvReac Unknown Blister Verified 07/06/17 15:28 aspirin AdvReac Unknown bleeding Verified 07/06/17 15:28 divalproex sodium AdvReac Unknown hallucinati Verified 07/06/17 15:28 on metoclopramide AdvReac Unknown Nausea Verified 07/06/17 15:28 ondansetron AdvReac Unknown Nausea Verified 07/06/17 15:28 propoxyphene AdvReac Unknown feeling of Verified 07/06/17 15:28 bugs crawling adhesive tape AdvReac Blister Verified 07/06/17 15:28 ibuprofen AdvReac Nausea Verified 07/06/17 15:28 stool softener AdvReac Unknown Shakiness Uncoded 07/06/17 15:28 All Systems: A 10-system review of systems was performed and is negative for pertinent findings except as documented above in the HPI. Physical Examination - Vital Signs Vital Signs: Initial Vital Signs Temp Pulse Resp BP Pulse Ox 98.5 F 54 16 100/67 99 07/06/17 12:01 07/06/17 12:01 07/06/17 12:01 07/06/17 12:07/06/17 12:01 - Constitutional General appearance: comfortable - Neurologic Sensorimotor examination: intact Detailed motor examination: grossly full strength in all extremities Motor examination - right side: 5/5: deltoids, biceps, triceps, wrist flexion, wrist extension, lumber straightened, hip flexors, tibialis Anterior, quadriceps, toe extension (EHL), plantarflexion Motor examination - left side: 5/5: deltoids, biceps, triceps, wrist flexion, wrist extension, hip flexors, lumber straightened, quadriceps, tibialis Anterior, toe extension (EHL), plantarflexion Detailed sensory examination: intact Posture: other (None) Reflex and gait examination: other (Gait not assessed, due to history of dizzienss when getting up) Reflexes: Biceps: 2+, Triceps: 2+, Brachioradialis: 2+, Patella: 2+, Achilles: 2 + Mental Status Examination: awake, alert, oriented to person, oriented to place, oriented to time, follows commands appropriately, answers questions appropriately, no agnosia, no aphasia, no aproxia Results - Laboratory Findings CBC and BMP: 07/07/17 06:17 07/07/17 04:10 Abnormal lab findings: Abnormal lab results RBC 3.51 M/mcL (3.82-4.97) L 07/07/17 04:10 Hgb 10.1 g/dL (11.5-15.4) L 07/07/17 06:17 Hct 30.7 % (35.3-44.9) L 07/07/17 06:17 APTT 53.6 Seconds (26.0-36.0) H 07/06/17 13:05 Chloride 114 mEq/L (98-109) H 07/07/17 04:10 BUN 21 mg/dL (7-20) H 07/07/17 04:10 POC Glucose 94 (58-89) H 07/06/17 15:58 Calcium 7.2 mg/dL (8.6-10.8) L D 07/07/17 04:10 Ur Leukocyte Esterase Trace (Negative) H 07/06/17 13:28 Ur Squamous Epith Cells Many per lpf (None-Few) H 07/06/17 13:28 Ur Culture Indicated? YES (NO) A 07/06/17 13:28 Consult Discharge Plan - Plan Referrals: Noé Skinner MD [Primary Care Provider] -
--- NOTE | 2017-07-07 18:38 | Electrocardiograph Report ---
[address] [address] Test Date: 2017-07-06 Pat Name: Mayte Nelson Department: 104 Room: 2NE20 Gender: F [employer]er: : 1945 Requested By: Guillermo Puga Order Number: [id number] Reading MD: Taurus Bardales DO Measurements Intervals [place] Rate: 48 P: 38 ND: 151 QRS: 35 QRSD: 90 T: 41 QT: 456 QTc: 421 Interpretive Statements SINUS BRADYCARDIA LOW QRS VOLTAGE IN PRECORDIAL LEADS Electronically Signed On 07-07-2017 18:36:23 EST by Taurus Bardales DO
[2017-07-07] MEDS: [UNRECOGNIZED DRUG - OTHER] IH SCH (20:34)
[2017-07-07] MEDS: FLOVENT IH SCH (20:34)
[2017-07-07] MEDS ORDERED: levETIRAcetam 250 MG TABLET PO SCH (21:00)
[2017-07-08] MEDS: *HR* Promethazine 25 MG/ML VIAL IVP PRN ×2 (04:47→10:45)
[2017-07-08] MEDS ORDERED: Acetaminophen 325 MG TABLET PO ONE (05:01)
[2017-07-08 05:22] LABS: BUN/Creatinine Ratio 27 (6-26); Basophils # 0.1 K/mcL (0.0-0.2); Basophils % 0.7 %; Blood Urea Nitrogen 22 mg/dL (7-20); Calcium 7.9 mg/dL (8.6-10.8); Carbon Dioxide 19 mEq/L (19-29); Chloride 116 mEq/L (98-109); Eosinophils # 0.3 K/mcL (0.0-0.6); Eosinophils % 4.1 %; Glucose 94 mg/dL (70-99); Hematocrit 33.8 % (35.3-44.9); Hemoglobin 11.3 g/dL (11.5-15.4); Immature Granulocytes % 0.4 % (0-4); Lymphocytes # 2.4 K/mcL (0.6-4.6); Lymphocytes % 30.2 %; Mean Corpuscular HGB Conc 33.4 g/dL (31.6-35.5); Mean Corpuscular Hemoglobin 30.3 pg (28.0-33.3); Mean Corpuscular Volume 90.6 fL (83.0-100.0); Mean Platelet Volume 11.7 fL (9.4-12.4); Monocytes # 0.5 K/mcL (0.0-1.3); Monocytes % 6.2 %; Neutrophils # 4.7 K/mcL (1.6-8.9); Osmolality,Calculated 303 (280-300); Phosphorous 3.1 mg/dL (2.3-4.7); Platelet Count 203 K/mcL (140-400); Red Blood Count 3.73 M/mcL (3.82-4.97); Red Cell Distribution Width 12.8 % (11.5-14.5); Segmented Neutrophils % 58.4 %; Sodium 145 mEq/L (136-145); eGFR For African Americans > 60 (> 60); eGFR For Non-African Americans > 60 (> 60)
[2017-07-08 08:18] VITALS: BP 117/62
[2017-07-08] MEDS ORDERED: cephALEXin 500 MG CAPSULE PO SCH (09:00)
[2017-07-08 09:02] LABS: Thyroid Stimulating Hormone 0.788 mcIU/mL (0.350-4.840)
[2017-07-08] MEDS: FLUoxetine 20 MG CAPSULE PO SCH (09:53)
[2017-07-08] MEDS: cephALEXin 250 MG CAPSULE PO SCH ×2 (09:54→14:50)
[2017-07-08] MEDS: FLOVENT IH SCH (09:54)
[2017-07-08] MEDS: [UNRECOGNIZED DRUG - OTHER] IH SCH (09:54)
--- NOTE | 2017-07-08 11:45 | Discharge Summary ---
Date of Encounter: 07/08/17 Time of Encounter: 11:38 - Discharge Diagnosis (1) Hypotension Priority: Secondary Status: Acute Qualifiers: Hypotension type: unspecified hypotension type Qualified Code(s): I95.9 - Hypotension, unspecified (2) Dizziness Priority: Primary Status: Resolved (3) Bradycardia Priority: Secondary Status: Chronic (4) CHF (congestive heart failure) Priority: Secondary Status: Chronic Qualifiers: Congestive heart failure type: diastolic Congestive heart failure chronicity: chronic Qualified Code(s): I50.32 - Chronic diastolic (congestive ) heart failure (5) CAD (coronary artery disease) Priority: Secondary Status: Chronic Qualifiers: Coronary Disease-Associated Artery/Lesion type: [place] artery [place] vs. transplanted heart: [place] heart Associated angina: without angina Qualified Code(s): I25.10 - Atherosclerotic heart disease of [place] coronary artery without angina pectoris (6) COPD (chronic obstructive pulmonary disease) Priority: Secondary Status: Chronic Qualifiers: COPD type: chronic bronchitis Chronic bronchitis type: mixed simple and mucopurulent Qualified Code(s): J41.8 - Mixed simple and mucopurulent chronic bronchitis (7) History of arteriovenous malformation (AVM) Priority: Secondary Status: Chronic (8) DVT prophylaxis Priority: Secondary Status: Acute - Discharge Medications Home Medications: Albuterol Sulfate [Albuterol Inhaler] 2 puff IH Q6HR PRN 05/06/15 [History] Atorvastatin [Lipitor] 20 mg PO HS 05/06/15 [History] Clopidogrel [Plavix] 75 mg PO DAILY 05/06/15 [History] Ergocalciferol (VITAMIN D2) [Vitamin D2 (50,000 UNIT)] 50,000 unit PO MOWETHSA 05/06/15 [History] Ropinirole HCl [Requip] 2 mg PO HS 05/06/15 [History] Cyanocobalamin (B-12) [Vitamin B12] 1,000 mcg IM QMONTH 11/13/15 [History] Potassium Chloride [K-Tab ER] 10 meq PO DAILY 11/13/15 [History] Scopolamine Patch [Transderm-Scop] 1.5 mg TD Q72H 11/13/15 [History] LevETIRAcetam [Keppra Xr] 1,000 mg PO HS 04/29/16 [History] Zolpidem Tartrate [Ambien Cr] 12.5 mg PO HS PRN 04/29/16 [History] Nitroglycerin 1 - 2 spr PO ONCE PRN 07/01/16 [History] SUMAtriptan succinate [Imitrex] 50 mg PO DAILY PRN 07/01/16 [History] FLUoxetine HCl [Fluoxetine HCl] 40 mg PO QAM 07/27/16 [History] Fluticasone Propionate [Flovent Hfa] 2 puff IH BID 07/27/16 [History] Mupirocin Calcium [Bactroban] 1 appl TP TID PRN 07/27/16 [History] Dronabinol [Marinol] 10 mg PO BID #8 capsule 07/30/16 [Rx] GuaiFENesin/Dextromethorphan [Mucinex Dm] 1 tab PO BID 09/27/16 [History] Nystatin Cream [Mycostatin Cream] 1 appl TP BID 09/27/16 [History] Promethazine [Phenergan] 50 mg RC Q6HR PRN 09/27/16 [History] Docusate [Colace] 100 mg PO DAILY PRN 11/16/16 [History] Allergies/Adverse Reactions: 3 Allergy/AdvReac Type Severity Reaction Status Date / Time prednisone Allergy Unknown unknown Verified 07/06/17 15:28 salicylates [Salicylate] Allergy Unknown unknown Verified 07/06/17 15:28 acetaminophen AdvReac Intermediate See Verified 07/06/17 15:28 [From Lily] Comments adhesive AdvReac Unknown Blister Verified 07/06/17 15:28 aspirin AdvReac Unknown bleeding Verified 07/06/17 15:28 divalproex sodium AdvReac Unknown hallucinati Verified 07/06/17 15:28 on metoclopramide AdvReac Unknown Nausea Verified 07/06/17 15:28 ondansetron AdvReac Unknown Nausea Verified 07/06/17 15:28 propoxyphene AdvReac Unknown feeling of Verified 07/06/17 15:28 bugs crawling adhesive tape AdvReac Blister Verified 07/06/17 15:28 ibuprofen AdvReac Nausea Verified 07/06/17 15:28 stool softener AdvReac Unknown Shakiness Uncoded 07/06/17 15:28 Procedures/tests Complete & Pending: Procedures Performed prior 72 hours Category Date Time Status EV carotid duplex imaging BI Stat Y 07/07/17 10:50 Completed EV echocardiogram Routine Y 07/07/17 23:09 Completed Date of admission: 07/06/17 20:17 Primary care physician: Noé Skinner MD Consults: 07/07/17 07:52 Consult to Neurology [CONS] Routine Consulting Provider: [facility] Reason for Consult: vertigo Call Completed: Yes 07/08/17 09:42 Consult to Occupational Therapy [CONS] Routine Comment: Evaluate, develop and implement POC Reason for Consult: vertigo Consult to Physical Therapy [CONS] Stat Comment: Evaluate, develop and implement POC Reason for Consult: vertigo Discharging clinician: Shanell Foster Anticipated date of discharge: 07/08/17 - Patient Status Disposition: Home, Self-Care Condition: Good Functional capacity at discharge: independent ambulation - Discharge Instructions Follow Up With: Noé Skinner MD [Primary Care Provider] - Additional Instructions: Please follow up with your primary care physician within five days after your discharge from the hospital. You were noted to have low blood pressure and heart rate due to which, all of your BP lowering medications and HR lowering medications were placed on hold. Please continue to hold the following medications until your follow up with your primary care physician: 1. Hold Clonidine, Lasix, Propranolol, and Spironolactone 2. Monitor your blood pressure and HR at home. If you are noted to have systolic blood pressure greater than 140, you may resume your home dose of Clonidine. If you are noted to have HR greater than 100, you may resume Propranolol once a day. Please keep a daily log of your blood pressure readings and take this log with you to your primary care physician's appointment. Seek medical help if your symptoms reoccur. Resume all other medications as prescribed by your primary care physician. - Diet and Activity Activity: increase activity as tolerated Diet: low fat, low cholesterol, low salt diet Hospital course: Ms. Nelson is a 72 year old female with PMH of CHF, AVM, CAD, HTN, HLD who was admitted for evaluation of dizziness. Upon further evaluation she was noted to be bradycardic and hypotensive requiring IVF support to maintain her BP. She responded appropriately to IVF and all her antihypertensive medications were placed on hold. Her neuro work up was unremarkable. As her hypotension resolved , her dizziness resolved. At this time she states she is able to ambulate without getting dizzy. Bradycardia improved. She denies any dizziness, lightheadedness at this time. Reports of complete resolution of her presenting symptoms. Pt educated about her home medications and advised to continue to hold all her BP and HR lowering medications (Lasix, Clonidine, Propranolol, Spironolactone) until her follow up with PCP. She is advised to monitor her BP daily. Patient demonstrates understanding of her diagnosis and agrees with the discharge care and plan. - Time Spent with Patient Total time spent providing and/or coordinating discharge services: Less than 30 minutes - Constitutional Vitals: Temp Pulse Resp BP Pulse Ox 97.8 F 54 18 117/62 97 07/08/17 08:18 07/08/17 08:18 07/08/17 08:18 07/08/17 08:18 07/08/17 08:18 General appearance: Present: A&O X 3, pleasant, no acute distress, answers questions appropriately - Head Head exam: Present: atraumatic, normocephalic - Eye Eye exam: Present: conjuntiva pink, sclera anicteric - Respiratory Respiratory exam: Present: CTAB. Absent: accessory muscle use, rales, rhonchi, wheezes - Cardiovascular Cardiovascular exam: Present: RRR, +S1, +S2. Absent: diastolic murmur, gallop, rubs, systolic murmur - GI/Abdominal GI/Abdominal exam: Present: normal bowel sounds, soft, no peritoneal signs. Absent: distended, tenderness - Extremities Exam Extremities exam: Present: warm, radial pulses palpable and symmetrical. Absent : calf tenderness, cyanotic, pedal edema - Neurological Exam Neurological exam: Present: alert, oriented X3 - Psychiatric Psychiatric exam: Present: normal affect, normal mood - VTE Documentation of Mechanical Device: Intermittent pneumatic compression device
== END 2017-07-08 16:00 | disposition home or self-care (01) | DRG 312 ==
LOC: EMEROO 11:59 → 2NENU 11:59
PROVIDERS: ADMIT Internal Medicine; ATTEND Internal Medicine

== ENCOUNTER 2018-04-17 13:50 | Inpatient (IN) ==
--- NOTE | 2018-04-16 21:47 | Discharge Summary ---
<Zay Gilbert - Last Filed: 04/17/18 14:48> Orders not resulted at time of discharge: Pending orders 04/17/18 00:01 XR hip complete RT [XR] Routine H/H [Hemoglobin and Hematocrit] [HEME] Routine 04/17/18 14:29 US anesthesia pain block [US] Routine Date of Encounter: 04/17/18 - Discharge Diagnosis (1) Arthritis of left hip Priority: Secondary Status: Chronic (2) Breakthrough seizure Priority: Secondary Status: Chronic (3) CVA (cerebral vascular accident) Priority: Secondary Status: Chronic Qualifiers: CVA mechanism: unspecified Qualified Code(s): I63.9 - Cerebral infarction, unspecified (4) DVT prophylaxis Priority: Secondary Status: Chronic (5) Hypertension Priority: Secondary Status: Chronic Qualifiers: Hypertension type: essential hypertension Qualified Code(s): I10 - Essential (primary) hypertension (6) CAD (coronary artery disease) Priority: Secondary Status: Chronic Qualifiers: Coronary Disease-Associated Artery/Lesion type: [place] artery [place] vs. transplanted heart: [place] heart Associated angina: without angina Qualified Code(s): I25.10 - Atherosclerotic heart disease of [place] coronary artery without angina pectoris (7) CHF (congestive heart failure) Priority: Secondary Status: Chronic Qualifiers: Qualified Code(s): I50.32 - Chronic diastolic (congestive) heart failure (8) COPD (chronic obstructive pulmonary disease) Priority: Secondary Status: Chronic Qualifiers: COPD type: chronic bronchitis Chronic bronchitis type: mixed simple and mucopurulent Qualified Code(s): J41.8 - Mixed simple and mucopurulent chronic bronchitis (9) History of arteriovenous malformation (AVM) Priority: Secondary Status: Chronic (10) History of gastric bypass Priority: Secondary Status: Chronic (11) History of seizures Priority: Secondary Status: Chronic (12) Iron deficiency Priority: Secondary Status: Chronic (13) Status post total replacement of right hip Priority: Primary Status: Acute (14) Obesity (BMI 30.0-34.9) Priority: Secondary Status: Chronic (15) Chronic kidney disease, stage III (moderate) Priority: Secondary Status: Chronic (16) Arthritis of right hip Priority: Primary Status: Chronic - Hospital Course Hospital course: Ms. Nelson is a 73 year old female - Time Spent with Patient Total time spent providing and/or coordinating discharge services: - Discharge Medications Home Medications: Atorvastatin [Lipitor] 20 mg PO HS 05/06/15 [History] Ropinirole HCl [Requip] 2 mg PO HS 05/06/15 [History] Cyanocobalamin (B-12) [Vitamin B12] 1,000 mcg IM QMONTH 11/13/15 [History] Potassium Chloride [K-Tab ER] 10 - 20 meq PO DAILY 11/13/15 [History] Scopolamine Patch [Transderm-Scop] 1.5 mg TD Q72H 11/13/15 [History] LevETIRAcetam [Keppra Xr] 1,000 mg PO HS 04/29/16 [History] Zolpidem Tartrate [Ambien Cr] 12.5 mg PO HS PRN 04/29/16 [History] Nitroglycerin 1 - 2 spr PO ONCE PRN 07/01/16 [History] SUMAtriptan succinate [Imitrex] 50 mg PO DAILY PRN 07/01/16 [History] FLUoxetine HCl [Fluoxetine HCl] 40 mg PO QAM 07/27/16 [History] Fluticasone Propionate [Flovent Hfa] 2 puff IH BID 07/27/16 [History] Dronabinol [Marinol] 10 mg PO BID #8 capsule 07/30/16 [Rx] Nystatin Cream [Mycostatin Cream] 1 appl TP BID PRN 09/27/16 [History] Promethazine [Phenergan] 50 mg RC Q6HR PRN 09/27/16 [History] Spironolactone [Aldactone] 25 mg PO TID 10/26/17 [History] cloNIDine HCl [CloNIDine HCl] 0.1 mg PO DAILY PRN 10/26/17 [History] Raloxifene [Evista] 60 mg PO DAILY #90 tablet 03/03/18 [Rx] Enoxaparin [Lovenox] 30 mg SQ Q12HR #20 syr 04/16/18 [Rx] OxyCODONE Immed Rel [Roxicodone 5 MG] 5 mg PO Q6HR PRN 7 Days #28 tablet [Rx] Albuterol Sulfate [Albuterol Inhaler] 2 puff IH Q6H PRN 04/17/18 [History] Betamethasone Dipropionate 1 appl TP DAILY PRN 04/17/18 [History] Clopidogrel [Plavix] 75 mg PO DAILY 04/17/18 [History] Ergocalciferol (VITAMIN D2) [Vitamin D2] 50,000 unit PO MOWETHSA 04/17/18 [ History] Furosemide [Lasix] 40 mg PO BID 04/17/18 [History] OxyCODONE/APAP 5/325 [Percocet 5/325 MG] 1 tab PO Q8HR PRN 04/17/18 [History] Allergies/Adverse Reactions: 3 Allergy/AdvReac Type Severity Reaction Status Date / Time prednisone Allergy Unknown unknown Verified 10/26/17 09:57 salicylates [Salicylate] Allergy Unknown unknown Verified 10/26/17 09:57 acetaminophen AdvReac Intermediate See Verified 10/26/17 09:57 [From Lily] Comments adhesive AdvReac Unknown Blister Verified 10/26/17 09:57 aspirin AdvReac Unknown bleeding Verified 10/26/17 09:57 divalproex sodium AdvReac Unknown hallucinati Verified 10/26/17 09:57 on metoclopramide AdvReac Unknown Nausea Verified 10/26/17 09:57 ondansetron AdvReac Unknown Nausea Verified 10/26/17 09:57 propoxyphene AdvReac Unknown feeling of Verified 10/26/17 09:57 bugs crawling adhesive tape AdvReac Blister Verified 10/26/17 09:57 ibuprofen AdvReac Nausea Verified 10/26/17 09:57 stool softener AdvReac Unknown Shakiness Uncoded 10/26/17 09:57 Primary care physician: Noé Skinner MD - Patient Status Disposition: Transfer SNF Condition: Good - Discharge Instructions Follow Up With: Noé Skinner MD [Primary Care Provider] - Additional Instructions: Discharge Instructions: Total Hip Replacement Please call [facility] ([phone]), your Primary Care Physician, or report to the Emergency Room if you have any of the following symptoms: Nausea, vomiting, fever greater that 101.5, swelling, chest pain, shortness of breath, increased pain/redness/drainage/odor for your incision site, numbness/ tingling, or any other concerning symptoms. ACTIVITY:Weight-bearing as tolerated for 8 weeks with hip dislocation precautions that physical therapy taught you. You may progress as tolerated under the guidance of your physical therapist. You do not need to sleep with a pillow between your legs. You can also seep on the operative side or on your stomach. Incentive Spirometer 10 times an hour. MEDICATIONS: Upon discharge resume your home medications. Take all the medications as prescribed. Take a stool softener if taking narcotic pain medications. Stool softeners are only effective if you drink enough fluids. Drink 6-8 glass of water or fluids a day, unless this is not allowed for another health problem. Despite using stool softeners, if you haven't had a bowel movement in 3 days, please switch to a gentle laxative. Gentle laxatives are sold over the counter. You should have a bowel movement within 24 hours, if not call the office. You will be discharged from the hospital with a prescription for pain medication. You are encouraged to decrease the use of narcotic pain medication as tolerated. Should you require a refill, please call the office. [facility] prescribes narcotic pain medication for only 4-6 weeks after surgery. If you require pain medication beyond this time period, you may be referred to your Primary Care Physician or to the Pain Clinic for further evaluation. Plan ahead for refills on pain medication as many narcotics either need to be picked up at the office or mailed. It is best to call 48-72 hours in advance of needing a prescription refill so you don't run out of medication. To help control the post-operative pain, you may take NSAIDs (Aleve,Advil, Motrin, ibuprofen, naprosyn) or Tylenol as prescribed on the bottle in addition to the pain medication. ANTICOAGULATION (blood thinners): Continue your Aspirin, Lovenox or Coumadin as prescribed to help prevent a blood clot in the leg or in the lungs. As long as your incision remains dry and you tolerate the NSAIDs (Aleve, Advil, Motrin, Ibuprofen, Naprosyn), it is OK to use the NSAIDS while you are taking your anticoagulation medication. Should your incision start to drain, stop the NSAID and contact our office. Common symptoms of blood clot in the legs include: localized pain, swelling, calf tenderness, redness or discoloration of the skin. Blood clot in the lung symptoms include: shortness of breath, rapid pulse, sweating, and chest pain that worsens with deep breathing, coughing up blood, lightheadedness, feelings of anxiety. If you experience any of these symptoms notify your physician immediately, go to the emergency room, or if having trouble breathing, call 911. WOUND CARE: Leave the dressing on for 7 to 10days. You may change the dressing if it is saturated greater than 50%. Do not get the dressing wet at anytime. Wash your hands with antibacterial soap, rinse and dry prior to any wound care. If you have winnie the visiting nurse or rehab facility can remove the stapes 10-14 days after surgery and place steri-strips across the wound. Leave the steri-strips in place until they fall off on their own. You may let water from the shower run on top of the steri-strips. If you do not have a visiting nurse or rehab facility, you will need to return to the office at 10-14 days for the winnie to be removed. If you have itching or redness around the dressing call the office. FOLLOW-UP: Please follow up with your surgeon in the orthopedic clinic in 6 weeks from the day of surgery. If you have winnie that need to be removed, you will need to come back to the office in 10-14 days from the day of surgery. <Gricelda Canas - Last Filed: 04/17/18 15:41> Orders not resulted at time of discharge: Pending orders 04/17/18 00:01 XR hip complete RT [XR] Routine H/H [Hemoglobin and Hematocrit] [HEME] Routine Date of Encounter: 04/17/18 - Discharge Diagnosis (1) Status post total hip replacement, left Priority: Primary Status: Acute Comments: Hx of: Planned Operation: Right total hip robotic Cardiac History: SD, CHF (preserved EF), HTN, Cardiac Stent (x 1 LAD. 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: Seizures (last seizure 2 years ago), CVA (memory deficits s/p AVM surgery at [facility]), Other (depression , anxiety, restless leg, neurogenic claudication, protein-calorie malnutrition and has had G tube in past) Other Medical History: Other (chronic nausea) Anesthesia History: No Prior Anesthetic Complications, Past Anesthesia ( multiple surgeries) (2) Arthritis of left hip Priority: Primary Status: Chronic (3) Peptic ulcer disease Priority: Secondary Status: Chronic (4) History of gastric bypass Priority: Secondary Status: Chronic (5) CAD (coronary artery disease) Priority: Secondary Status: Chronic Qualifiers: Coronary Disease-Associated Artery/Lesion type: unspecified vessel or lesion type [place] vs. transplanted heart: [place] heart Associated angina: angina presence unspecified Qualified Code(s): I25.10 - Atherosclerotic heart disease of [place] coronary artery without angina pectoris (6) Aspirin allergy Priority: Secondary Status: Chronic (7) Heart failure with preserved ejection fraction Priority: Secondary Status: Chronic (8) RLS (restless legs syndrome) Priority: Secondary Status: Chronic (9) Asthma Priority: Secondary Status: Chronic Qualifiers: Asthma severity: unspecified severity Asthma persistence: intermittent Asthma complication type: uncomplicated Qualified Code(s): J45.20 - Mild intermittent asthma, uncomplicated (10) Smoker Priority: Secondary Status: Chronic (11) Hx of acute myocardial infarction Priority: Secondary Status: Chronic (12) Obesity (BMI 30.0-34.9) Status: Chronic (13) Seizure disorder Priority: Secondary Status: Chronic (14) CAD (coronary artery disease) Priority: Secondary Status: Chronic Qualifiers: Coronary Disease-Associated Artery/Lesion type: [place] artery [place] vs. transplanted heart: [place] heart Associated angina: without angina Qualified Code(s): I25.10 - Atherosclerotic heart disease of [place] coronary artery without angina pectoris - Hospital Course Hospital course: Ms. Nelson is a 73 year old female - Time Spent with Patient Total time spent providing and/or coordinating discharge services: Primary care physician: Noé Skinner MD <Giana Chavarria - Last Filed: 04/20/18 18:32> Orders not resulted at time of discharge: Pending orders 04/17/18 14:29 US anesthesia pain block [US] Routine Date of Encounter: 04/20/18 Time of Encounter: 12:15 - Discharge Diagnosis (1) Status post total replacement of right hip Priority: Primary Status: Acute (2) Arthritis of right hip Priority: Primary Status: Chronic (3) Asthma Priority: Secondary Status: Chronic Qualifiers: Asthma severity: unspecified severity Asthma persistence: intermittent Asthma complication type: uncomplicated Qualified Code(s): J45.20 - Mild intermittent asthma, uncomplicated (4) Chronic kidney disease, stage III (moderate) Priority: Secondary Status: Chronic (5) Hx of acute myocardial infarction Status: Chronic (6) Obesity (BMI 30.0-34.9) Priority: Secondary Status: Chronic (7) RLS (restless legs syndrome) Priority: Secondary Status: Chronic (8) Smoker Priority: Secondary Status: Chronic (9) Nausea & vomiting Priority: Secondary Status: Chronic Qualifiers: Vomiting type: unspecified Vomiting Intractability: intractable Qualified Code(s): R11.2 - Nausea with vomiting, unspecified (10) CAD (coronary artery disease) Priority: Secondary Status: Chronic Qualifiers: Coronary Disease-Associated Artery/Lesion type: [place] artery [place] vs. transplanted heart: [place] heart Associated angina: without angina Qualified Code(s): I25.10 - Atherosclerotic heart disease of [place] coronary artery without angina pectoris (11) CHF (congestive heart failure) Priority: Secondary Status: Chronic Qualifiers: Qualified Code(s): I50.32 - Chronic diastolic (congestive) heart failure (12) COPD (chronic obstructive pulmonary disease) Priority: Secondary Status: Chronic Qualifiers: COPD type: chronic bronchitis Chronic bronchitis type: mixed simple and mucopurulent Qualified Code(s): J41.8 - Mixed simple and mucopurulent chronic bronchitis (13) DVT prophylaxis Priority: Secondary Status: Chronic (14) Depression Status: Chronic Qualifiers: Depression Type: unspecified Qualified Code(s): F32.9 - Major depressive disorder, single episode, unspecified (15) History of arteriovenous malformation (AVM) Priority: Secondary Status: Chronic (16) History of seizures Priority: Secondary Status: Chronic (17) Hypertension Priority: Secondary Status: Chronic Qualifiers: Hypertension type: essential hypertension Qualified Code(s): I10 - Essential (primary) hypertension (18) Osteoporosis Priority: Secondary Status: Chronic (19) Peptic ulcer disease Priority: Secondary Status: Chronic (20) CVA (cerebral vascular accident) Priority: Secondary Status: Chronic Qualifiers: CVA mechanism: unspecified Qualified Code(s): I63.9 - Cerebral infarction, unspecified (21) History of gastric bypass Priority: Secondary Status: Chronic (22) Iron deficiency Priority: Secondary Status: Chronic - Hospital Course Hospital course: Ms. Nelson is a 73 year old female s/p Right Total Hip Replacment robotic- assisted 04/17 with history of CKDIII, obesity, seizures, CVA, CAD, CHF, COPD, AVM, gastric bypass and iron deficiency. During surgery a contact device was retained at greater trochanter. Dr. Gilbert did discuss this with patient, family and administration. All were in agreement to leave in place as it is stable inside bone. She experienced her chronic nausea during hospital stay which resolved with restarting her home regimen of phenergan and morphine suppository. Otherwise, uneventful hospital admission. Stable for discharge. Patient seen at bedside. A&O x 3 No concerns today. Afebrile, vital signs stable at time of exam. Temp did reach max Temp of 100 2 nights ago but improved to 99.1 at time of exam Dressings c/d/i with no visible erythema or drainage. No calf tenderness to palpation, good dorsiflexion of foot. grossly NV intact. Labs reviewed. 04/18: H/H 12.2/36.1- stable, asymptomatic. Cr 1.27, GFR 41. she does have CKDIII, will give fluid bolus 04/19: H/H 10.2/29.5, Cr and GFR improved 04/20: H/H 10.3/30.2 Pain control: adequate Participating in PT. All questions and concerns addressed. Educated on use of incentive spirometer. Encouraged ambulation and proper hydration. Patient educated on post-operative restrictions and post-operative care. Assessment and plan: Continue with postoperative care Discharge plan: [facility] today - Time Spent with Patient Total time spent providing and/or coordinating discharge services: Date of admission: 04/17/18 19:08 Primary care physician: Noé Skinner MD Consults: 04/17/18 20:05 Consult to Nurse Navigator [CONS] Routine Comment: ortho navigator Consult to Occupational Therapy [CONS] Routine Comment: Evaluate, develop and implement POC Reason for Consult: total hip replacement Does patient have active BEDREST order?: No Is patient medically & hemodynamically stable?: Yes Consult to Physical Therapy [CONS] Routine Comment: Evaluate, develop and implement POC Reason for Consult: total hip replacement Does patient have active BEDREST order?: No Is patient medically & hemodynamically stable?: Yes Consult to Inside Sales Lead [CONS] Routine Reason for SW Consult: post op joint replacement RT Post Op Consult [CONS] Routine Discharging clinician: Zay Gilbert Anticipated date of discharge: 04/20/18 Labs on day of discharge: Labs from last 24 hours 04/20/18 04/20/18 11:45 11:45 WBC 8.8 RBC 3.41 L Hgb 10.3 L Hct 30.2 L MCV 88.6 MCH 30.2 MCHC 34.1 RDW 12.4 Plt Count 170 MPV 11.0 Immature Gran % 0.6 Seg Neutrophils % 73.5 Lymphocytes % 15.8 Monocytes % 8.9 Eosinophils % 0.7 Basophils % 0.5 Neutrophils # 6.5 Lymphocytes # 1.4 Monocytes # 0.8 Eosinophils # 0.1 Basophils # 0.0 Sodium 139 Potassium 3.3 L Chloride 103 Carbon Dioxide 29 BUN 15 Creatinine 1.01 Est GFR ( Amer) > 60 Est GFR (Non-Af Amer) 54 L BUN/Creatinine Ratio 15 Glucose 110 H Calculated Osmolality 289 Calcium 8.0 L - Impressions ITS Impressions Hip X-Ray 04/17/18 00:01 IMPRESSION: Anatomic alignment status post right hip arthroplasty. No evidence of hardware complication. D/ / Nabil Olivo MD / Nabil Olivo MD Interpreting Provider: Nabil Olivo MD Hip X-Ray 04/18/18 10:01 IMPRESSION: No acute abnormality. D/ / Guido Rodriguez MD / Guido Rodriguez MD Interpreting Provider: Guido Rodriguez MD Hip X-Ray 04/20/18 13:30 IMPRESSION: Postoperative right hip total arthroplasty without radiographic complication. D/ / 04/20/2018 14:24:21 Nabil Fabian MD / mary Interpreting Provider: Nabil Fabian MD - Patient Status Functional capacity at discharge: uses cane/walker Overall status at discharge: patient is back to baseline - Diet and Activity Activity: as per physical therapy Diet: advance to your usual diet
--- NOTE | 2018-04-17 14:02 | History & Physical Report ---
Date of Encounter: 04/17/18 Time of Encounter: 14:01 24 Hour HP Update - Instructions Instructions: If the History and Physical is less than 30 days old and was completed prior to A.M. admission and or procedure and has NOT been updated on calendar day of procedure please complete this update prior to performing procedure. - Update Patient reports changes in Medical Condition: No Changes in examination, assessment, or condition: No Changes in Medication: No Preop tests/diagnostics Reviewed: Yes Surgery Remains Indicated: Yes Consent for Planned Operative Procedure(s) Verified: Yes - Pre-Operative Checklist Preoperative Checklist Indicated: No Prophylactic Antibiotic Ordered: Yes Is VTE Prophylaxis Indicated?: Yes
[2018-04-17] MEDS ORDERED: *HR* Midazolam HCl 2 MG/2 ML VIAL ONE (14:24)
[2018-04-17] MEDS ORDERED: *HR* FentaNYL (PF) 100 MCG/2 ML VIAL ONE (14:24)
[2018-04-17] MEDS ORDERED: Famotidine 20 MG/2 ML VIAL IVP ONE (14:28)
[2018-04-17] MEDS ORDERED: Acetaminophen IV 1,000 MG/100 ML INFUS..BTL IVPB ONE (14:28)
[2018-04-17] MEDS ORDERED: Albuterol 2.5 MG/3 ML NEBULIZER IH ONE (14:29)
[2018-04-17] MEDS ORDERED: CeFAZolin Syr 2,000MG/20 ML 2,000 MG/20 ML SYRINGE IVPB ONE (14:29)
[2018-04-17] MEDS ORDERED: Ringers Solution, Lactated 1,000 ML IVC SCH ×2 (14:30)
[2018-04-17] MEDS ORDERED: *HR* Succinylcholine 200 MG/10 ML VIAL IVP ONE (14:46)
[2018-04-17] MEDS ORDERED: Lidocaine -MPF 2% 2 ML VIAL ONE (14:46)
[2018-04-17] MEDS ORDERED: Scopolamine Patch 1.5 MG PATCH.TD72 TD ONE (15:09)
--- NOTE | 2018-04-17 15:18 | Anesthesia Evaluation PreOp ---
Date of Encounter: 04/17/18 Time of Encounter: 15:16 - Past History Planned Operation: Right total hip robotic Cardiac History: OK, CHF (preserved EF), HTN, Cardiac Stent (x 1 LAD. Last plavix 4 days ago.), Other (Hx ablation for SVT, pulmonary HTN) Pulmonary History: Smoker, Asthma BOX CUTTER History: Seizures (last seizure 2 years ago), CVA (memory deficits s/p AVM surgery at [facility]), Other (depression , anxiety, restless leg, neurogenic claudication, protein-calorie malnutrition and has had G tube in past) Other Medical History: Other (chronic nausea) Anesthesia History: No Prior Anesthetic Complications, Past Anesthesia ( multiple surgeries) Alcohol Use: none Drug use: none Medications and Allergies Atorvastatin [Lipitor] 20 mg PO HS 05/06/15 [History] Ropinirole HCl [Requip] 2 mg PO HS 05/06/15 [History] Cyanocobalamin (B-12) [Vitamin B12] 1,000 mcg IM QMONTH 11/13/15 [History] Potassium Chloride [K-Tab ER] 10 - 20 meq PO DAILY 11/13/15 [History] Scopolamine Patch [Transderm-Scop] 1.5 mg TD Q72H 11/13/15 [History] LevETIRAcetam [Keppra Xr] 1,000 mg PO HS 04/29/16 [History] Zolpidem Tartrate [Ambien Cr] 12.5 mg PO HS PRN 04/29/16 [History] Nitroglycerin 1 - 2 spr PO ONCE PRN 07/01/16 [History] SUMAtriptan succinate [Imitrex] 50 mg PO DAILY PRN 07/01/16 [History] FLUoxetine HCl [Fluoxetine HCl] 40 mg PO QAM 07/27/16 [History] Fluticasone Propionate [Flovent Hfa] 2 puff IH BID 07/27/16 [History] Dronabinol [Marinol] 10 mg PO BID #8 capsule 07/30/16 [Rx] Nystatin Cream [Mycostatin Cream] 1 appl TP BID PRN 09/27/16 [History] Promethazine [Phenergan] 50 mg RC Q6HR PRN 09/27/16 [History] Spironolactone [Aldactone] 25 mg PO TID 10/26/17 [History] cloNIDine HCl [CloNIDine HCl] 0.1 mg PO DAILY PRN 10/26/17 [History] Raloxifene [Evista] 60 mg PO DAILY #90 tablet 03/03/18 [Rx] Enoxaparin [Lovenox] 30 mg SQ Q12HR #20 syr 04/16/18 [Rx] OxyCODONE Immed Rel [Roxicodone 5 MG] 5 mg PO Q6HR PRN 7 Days #28 tablet [Rx] Albuterol Sulfate [Albuterol Inhaler] 2 puff IH Q6H PRN 04/17/18 [History] Betamethasone Dipropionate 1 appl TP DAILY PRN 04/17/18 [History] Clopidogrel [Plavix] 75 mg PO DAILY 04/17/18 [History] Ergocalciferol (VITAMIN D2) [Vitamin D2] 50,000 unit PO MOWETHSA 04/17/18 [ History] Furosemide [Lasix] 40 mg PO BID 04/17/18 [History] OxyCODONE/APAP 5/325 [Percocet 5/325 MG] 1 tab PO Q8HR PRN 04/17/18 [History] 3 Allergy/AdvReac Type Severity Reaction Status Date / Time prednisone Allergy Unknown unknown Verified 10/26/17 09:57 salicylates [Salicylate] Allergy Unknown unknown Verified 10/26/17 09:57 acetaminophen AdvReac Intermediate See Verified 10/26/17 09:57 [From Lily] Comments adhesive AdvReac Unknown Blister Verified 10/26/17 09:57 aspirin AdvReac Unknown bleeding Verified 10/26/17 09:57 divalproex sodium AdvReac Unknown hallucinati Verified 10/26/17 09:57 on metoclopramide AdvReac Unknown Nausea Verified 10/26/17 09:57 ondansetron AdvReac Unknown Nausea Verified 10/26/17 09:57 propoxyphene AdvReac Unknown feeling of Verified 10/26/17 09:57 bugs crawling adhesive tape AdvReac Blister Verified 10/26/17 09:57 ibuprofen AdvReac Nausea Verified 10/26/17 09:57 stool softener AdvReac Unknown Shakiness Uncoded 10/26/17 09:57 - Meds/Allergy Pre-op Review Medications Reviewed: Yes Allergies Reviewed: Yes Beta Blockers on Current Med List: No Anesthesia Results - Labs Laboratory Tests 03/03/18 04/13/18 04/13/18 13:34 10:10 10:10 WBC 7.7 Hgb 13.5 Hct 40.1 Plt Count 233 PT 10.1 INR 0.9 Sodium Potassium Chloride Carbon Dioxide BUN Creatinine Whole Bld Creatinine 1.0 Est GFR (Non-Af Amer) 04/13/18 10:10 WBC Hgb Hct Plt Count PT INR Sodium 138 Potassium 4.2 Chloride 106 Carbon Dioxide 27 BUN 16 Creatinine 0.99 Whole Bld Creatinine Est GFR (Non-Af Amer) 55 L - Imaging EKG: report reviewed, image reviewed Additional studies: 10/2017 Impressions: LVEF 60-65%. Normal LV chamber size, wall thickness and function. Moderate left ventricular diastolic dysfunction. Normal right ventricular structure and function. Mild tricuspid regurgitation. Mild pulmonary hypertension. Estimated RVSP is 41 mmHg. Anesthesia Exam Vital Signs/O2 Sat/Glucose, Most Recent Temp Pulse Resp BP Pulse Ox 98.5 F 62 18 139/62 99 04/17/18 14:44 04/17/18 14:44 04/17/18 14:52 04/17/18 14:52 04/17/18 14:52 Height: 1.55 m Weight: 72 kg NPO (# of Hours): > 8 hr - HEENT Pupil (Motor): Pupils equal Mallampati: II Denture Type: Upper: Complete, Lower: Complete Oral Opening: Greater than 3 - BOX CUTTER LOC: Oriented BOX CUTTER Motor: Normal RUE, Normal LUE, Normal RLE, Normal LLE, Normal Face BOX CUTTER Sensory: Normal: RUE, LUE, RLE, LLE, Face - Cardiac Rhythm: Regular Murmur: None - Pulmonary Breath Sounds: bilateral Clear Respiratory Effort: Symmetrical Anesthesia Assess/Plan ASA Score: 4 Modified Flor Scale for Level of Consciousness: Cooperative, oriented, and tranquil Anesthetic Plan: General (patient with recent plavix 4 days ago so not a candidate for neuraxial analgesia), Regional Monitoring Plan: Standard Monitors Recovery Plan: PACU
[2018-04-17] MEDS ORDERED: ROPIVACAINE HCL/PF 0.5% 30 ML VIAL ONE (15:23)
[2018-04-17] MEDS ORDERED: Ethanol\\Acetic Acid\\Na Ace\\Ben 1,000 ML IRRIG.SOLN IR ONE (15:33)
[2018-04-17] MEDS ORDERED: Propofol 500 MG/50 ML INFUS..BTL ONE ×2 (15:34→16:58)
[2018-04-17] MEDS ORDERED: *HR* Phenylephrine 10 MG/ML VIAL ONE (15:36)
[2018-04-17] MEDS ORDERED: *HR* Remifentanil 1 MG VIAL IVP ONE (15:39)
--- NOTE | 2018-04-17 15:39 | Physician Discharge Referral ---
<Gricelda Canas L - Last Filed: 04/17/18 15:34> ExtendedCare Referral Info Transfer To: F Provider in Charge: Provider in Charge after Transfer: PCP Institutional Level of Care: Skilled - Diagnosis (1) Status post total hip replacement, left Priority: Primary Status: Acute (2) Arthritis of left hip Priority: Primary Status: Chronic (3) Peptic ulcer disease Priority: Secondary Status: Chronic (4) History of gastric bypass Priority: Secondary Status: Chronic (5) CAD (coronary artery disease) Priority: Secondary Status: Chronic (6) Aspirin allergy Priority: Secondary Status: Chronic Expected Duration of Placement: < 30 days Prognosis: Good Aware of Diagnosis: Patient Aware of Prognosis: Patient - Transfer Medications Home Medications: Atorvastatin [Lipitor] 20 mg PO HS 05/06/15 [History] Ropinirole HCl [Requip] 2 mg PO HS 05/06/15 [History] Cyanocobalamin (B-12) [Vitamin B12] 1,000 mcg IM QMONTH 11/13/15 [History] Potassium Chloride [K-Tab ER] 10 - 20 meq PO DAILY 11/13/15 [History] Scopolamine Patch [Transderm-Scop] 1.5 mg TD Q72H 11/13/15 [History] LevETIRAcetam [Keppra Xr] 1,000 mg PO HS 04/29/16 [History] Zolpidem Tartrate [Ambien Cr] 12.5 mg PO HS PRN 04/29/16 [History] Nitroglycerin 1 - 2 spr PO ONCE PRN 07/01/16 [History] SUMAtriptan succinate [Imitrex] 50 mg PO DAILY PRN 07/01/16 [History] FLUoxetine HCl [Fluoxetine HCl] 40 mg PO QAM 07/27/16 [History] Fluticasone Propionate [Flovent Hfa] 2 puff IH BID 07/27/16 [History] Dronabinol [Marinol] 10 mg PO BID #8 capsule 07/30/16 [Rx] Nystatin Cream [Mycostatin Cream] 1 appl TP BID PRN 09/27/16 [History] Promethazine [Phenergan] 50 mg RC Q6HR PRN 09/27/16 [History] Spironolactone [Aldactone] 25 mg PO TID 10/26/17 [History] cloNIDine HCl [CloNIDine HCl] 0.1 mg PO DAILY PRN 10/26/17 [History] Raloxifene [Evista] 60 mg PO DAILY #90 tablet 03/03/18 [Rx] Enoxaparin [Lovenox] 30 mg SQ Q12HR #20 syr 04/16/18 [Rx] OxyCODONE Immed Rel [Roxicodone 5 MG] 5 mg PO Q6HR PRN 7 Days #28 tablet [Rx] Albuterol Sulfate [Albuterol Inhaler] 2 puff IH Q6H PRN 04/17/18 [History] Betamethasone Dipropionate 1 appl TP DAILY PRN 04/17/18 [History] Clopidogrel [Plavix] 75 mg PO DAILY 04/17/18 [History] Ergocalciferol (VITAMIN D2) [Vitamin D2] 50,000 unit PO MOWETHSA 04/17/18 [ History] Furosemide [Lasix] 40 mg PO BID 04/17/18 [History] OxyCODONE/APAP 5/325 [Percocet 5/325 MG] 1 tab PO Q8HR PRN 04/17/18 [History] Allergies/Adverse Reactions: 3 Allergy/AdvReac Type Severity Reaction Status Date / Time prednisone Allergy Unknown unknown Verified 10/26/17 09:57 salicylates [Salicylate] Allergy Unknown unknown Verified 10/26/17 09:57 acetaminophen AdvReac Intermediate See Verified 10/26/17 09:57 [From Lily] Comments adhesive AdvReac Unknown Blister Verified 10/26/17 09:57 aspirin AdvReac Unknown bleeding Verified 10/26/17 09:57 divalproex sodium AdvReac Unknown hallucinati Verified 10/26/17 09:57 on metoclopramide AdvReac Unknown Nausea Verified 10/26/17 09:57 ondansetron AdvReac Unknown Nausea Verified 10/26/17 09:57 propoxyphene AdvReac Unknown feeling of Verified 10/26/17 09:57 bugs crawling adhesive tape AdvReac Blister Verified 10/26/17 09:57 ibuprofen AdvReac Nausea Verified 10/26/17 09:57 stool softener AdvReac Unknown Shakiness Uncoded 10/26/17 09:57 - Respiratory Orders Smoking Cessation: Smoking cessation has been advised. For more information, call the [employer] Quit Line at 5-334-PEXQ-NOW. - Rehabiliation Orders Rehab Potential: Good Rehab Orders: ROM Exercises, Evaluation for Physical Therapy, Evaluation for Occupational Therapy - Treatments List/Other: HIP Continuity Opsite dressing, leave intact until first post-operative visit. If dressing becomes >50% saturated, contact office, remove dressing and place appropriate dressing in its place. Do not allow for dressing to get wet. Zipline in place, plan to remove at post-operative day #14-16. Total Joint Precautions x 6 weeks Apply cold therapy wrap 3-6x/day for 20 minutes at a time. Encourage ambulation throughout the day Use Incentive spirometer 10x/hour. Elevate affected extremity above heart as tolerated. Brace: Wear hip abductor brace at night x 6 weeks. CERTIFICATION: I certify that the transfer of the above named patient to an Extended Care Facility is necessary for the continuing treatment of the diagnosis listed. The above information is true and accurate reflection of patient's current condition. Confidential - Redisclosure prohibited without a patient's written consent. <Zay Gilbert - Last Filed: 04/20/18 08:40> - Diagnosis (1) Arthritis of left hip Status: Chronic (2) Breakthrough seizure Status: Chronic (3) CVA (cerebral vascular accident) Status: Chronic (4) DVT prophylaxis Status: Chronic (5) Hypertension Status: Chronic (6) CAD (coronary artery disease) Status: Chronic (7) CHF (congestive heart failure) Status: Chronic (8) COPD (chronic obstructive pulmonary disease) Status: Chronic (9) History of arteriovenous malformation (AVM) Status: Chronic (10) History of gastric bypass Status: Chronic (11) History of seizures Status: Chronic (12) Iron deficiency Status: Chronic (13) Status post total replacement of right hip Status: Acute (14) Obesity (BMI 30.0-34.9) Status: Chronic (15) Chronic kidney disease, stage III (moderate) Status: Chronic (16) Arthritis of right hip Status: Chronic - Respiratory Orders Smoking Cessation: Smoking cessation has been advised. For more information, call the [employer] Quit Line at 0-118-DHOZ-NOW. CERTIFICATION: I certify that the transfer of the above named patient to an Extended Care Facility is necessary for the continuing treatment of the diagnosis listed. The above information is true and accurate reflection of patient's current condition. Confidential - Redisclosure prohibited without a patient's written consent.
[2018-04-17] MEDS ORDERED: *HR* Promethazine 25 MG/ML VIAL ONE (15:53)
--- NOTE | 2018-04-17 16:01 | Anesthesia Procedures ---
Date of Encounter: 04/17/18 Time of Encounter: 15:50 Procedures: Anesthesia - Nerve Block Procedure Date: 04/17/18 Time: 15:50 Allergies/Adv Reactions: Prednisone, salicylates, acetaminphen, adhesive, aspirin Pre-op Diagnosis: Right hip osteoarthritis Surgical Procedure: Right total hip arthroplasty, robotic assist Checklist: Correct Patient Identifier, Correct procedure, History checked Correct side: Right Blood Thinner: No Monitor Applied: EKG, BP, Pulse Oximetry Supplemental Oxygen via Nasal Cannula (L/min): 2 Sedation: Versed (mg): 2 Sedation: Fentanyl (mcg): 100 Indication: Post Op Analgesia Pre-op Neuro Deficits: No Block Type: Other (Fascia Iliaca Right) Catheter placed: No Sterile Technique: Yes Ultrasound used: Yes Anatomy identified: Yes Visual spread of Local: Yes Blood on Needle Aspiration: No Smooth Injection of Local: Yes Pain with Injection of Local: No Prep: Chlorhexadine Needle: 22 x 50 mm Stimuplex Local: Ropivacaine (0.25% ) Volume (cc): 60ml Number of Attempts: 1 Complications: None/effective block Vitals: Vital Signs Temperature 98.5 F 04/17/18 14:44 Pulse Rate 62 04/17/18 14:44 Respiratory Rate 18 04/17/18 14:44 Blood Pressure 139/62 04/17/18 14:44 O2 Sat by Pulse Oximetry 99 04/17/18 14:44 Temperature 98.5 F 04/17/18 14:44 Pulse Rate 72 04/17/18 15:48 Respiratory Rate 18 04/17/18 15:48 Blood Pressure 118/44 04/17/18 15:48 O2 Sat by Pulse Oximetry 98 04/17/18 15:48
[2018-04-17] MEDS ORDERED: *HR* Rocuronium Bromide 50 MG/5 ML VIAL ONE (16:58)
[2018-04-17] MEDS ORDERED: *HR* Midazolam HCl 2 MG/2 ML VIAL IVP PRN (17:06)
[2018-04-17] MEDS ORDERED: *HR* OxyCODONE Immed Rel 5 MG TABLET PO PRN (17:06)
[2018-04-17] MEDS ORDERED: *HR* Promethazine 25 MG/ML VIAL IVP PRN (17:06)
--- NOTE | 2018-04-17 17:35 | Orthopedic Operative Note ---
Date of procedure: 04/17/18 Pre-op diagnosis: Right hip arthritis Post-op diagnosis: same Procedure: Procedure: Right Total Hip Replacment robotic-assisted Estimated blood loss: 200 cc Hardware: Metal and polyethylene replacement. Waqas DM Cup: 52 cup to 6.5 screws Femoral size 8 stem Head: +12 head with Grecia Procedural Notes: Grade 4 arthritic changes femoral head acetabular socket, 1 mm longer operative leg first nonoperative leg as measured by CT scan preoperatively procedure performed with robotic assistance. Operative procedure: The patient was brought to the operating room and placed on the operating room table. After general anesthesia was administered the patient was placed in the lateral decubitus position with the operative leg up. All pressure points were padded appropriately and the head was stabilized in the neutral position. The operative extremity was prepped and draped in the sterile surgical fashion patient received IV antibiotic prior to skin incision. 3 Steinmann pins were placed in the iliac crest 3 cm proximal to the anterior superior iliac spine this was for the robotic-assisted sensor. This was done through a small 2 cm incision. A standard posterior approach is made to the operative hip, the incision was made through the skin and subcutaneous tissue hemostasis was obtained with Bovie cautery. Using careful sharp dissection the fascia was identified and incised exposing the external rotators. The femoral checkpoint was placed leg length was measured at this time utilizing robotic assistance. The external rotators were released off the greater trochanter and tagged with # 2 FiberWire suture. The capsule was T'd open and the hip was brought into internal rotation. Patient noted to have grade 4 arthritic changes femoral head. The femoral neck cut was made at the appropriate level roughly Xmm proximal to the lesser trochanter aced on preoperative templating. An anterior capsulotomy was performed for the anterior retractor. Soft tissues removed from the acetabulum. Patient noted to have grade 4 arthritic changes acetabulum. The acetabulum checkpoint was placed confirmed. The acetabulum was then mapped with robotic assistance. Based on the preoperative plan the acetabulum was reamed in one step with a 51 reamer. The 52 acetabulum was impacted with robotic assistance and 40 degrees of abduction and 20 degrees of anteversion. Fixation augmented with posterior superior screw fixation with 26.5 screws. The hip was brought back in to internal rotation and prepared with the hand box folder followed by the canal finder followed by the reaming process to a size X broaching process in 20 degrees anteversion. It was broached up to the appropriate size 8. Trial reduction revealed leg lengths close to normal. The femoral implant was impacted in place in 20 degrees of anteversion. Trial reduction found the hip to be stable with 12 head and Grecia. The trials were removed and the real implants were impacted in place. The hip was reduced, patient had robotic confirmed leg length of 15 mm longer than the contralateral side. The hip had excellent stability with forward flexion to 90 degrees adduction of 30 degrees and internal rotation of 60 degrees. The hip had no shuck. The hips after 2 minutes with a Betadine saline solution. It was irrigated out with 2 L of pulse irrigation. The checkpoints were removed, Steinmann pins were removed. The hip was closed by the PA. The deep tissue was irrigated and closed deep with #1 PDS suture superficially with 0 PDS suture and skin was closed with Dermabond and zip tie. The patient was placed in a sterile dressing and abduction pillow. The patient was extubated and transferred to the recovery room in stable condition. Anesthesia: GETA Surgeon: Zay Gilbert Was there an rehabilitation assistant present: Yes Supervisor Fusing Room: Gricelda Canas Estimated blood loss (cc): 200 Condition: stable Disposition: PACU
[2018-04-17] MEDS: *HR* HYDROmorphone (PF) 1 MG/ML SYRINGE IVP PRN ×4 (18:01→18:21)
--- NOTE | 2018-04-17 18:43 | Anesthesia Evaluation Post Op ---
Date of Encounter: 04/17/18 Time of Encounter: 18:45 - Vital Signs Vital Signs: Vital Signs/O2 Sat/Glucose, Most Current Temp Pulse Resp BP Pulse Ox 04/17/18 18:33 90 14 120/72 99 04/17/18 18:23 97.8 F 90 16 118/71 96 04/17/18 18:13 93 16 140/69 96 04/17/18 18:03 89 16 118/80 99 04/17/18 17:53 98.2 F 92 16 110/76 100 04/17/18 15:48 72 18 118/44 98 04/17/18 14:52 18 139/62 99 04/17/18 14:44 98.5 F 62 18 139/62 99 - Lungs Lungs: Clear Ascult./Percussion - Airway Airway: Non-obstructed - Cardiovascular Regular Rate - Mental Status Mental Status: Alert & Oriented, Answers Appropriately - Pain Pain Scale: 0 - Nausea Vomiting Nausea Vomiting: Not Present - Hydration Hydration: Ice chips - Discharge PostOp Status: Transfer Patient to floor
[2018-04-17 19:07] LABS: Hematocrit 37.8 % (35.3-44.9)
[2018-04-17] MEDS ORDERED: Nitroglycerin Spray 4.9 GM BOTTLE SL PRN (20:05)
[2018-04-17] MEDS ORDERED: Naloxone 0.4 MG/ML INJ IVP PRN (20:05)
[2018-04-17] MEDS ORDERED: Nystatin Cream 15 GM TUBE TP PRN (20:05)
[2018-04-17] MEDS ORDERED: SUMAtriptan succinate 50 MG TABLET PO PRN (20:05)
[2018-04-17] MEDS ORDERED: *HR* OxyCODONE/APAP 5/325 TABLET PO PRN (20:05)
[2018-04-17] MEDS ORDERED: CYANOCOBALAMIN 1000 MCG IM SCH (20:05)
[2018-04-17] MEDS ORDERED: MOM Conc 10 ML UD.LIQ PO PRN (20:05)
[2018-04-17] MEDS ORDERED: Temazepam 15 MG CAPSULE PO PRN (20:05)
[2018-04-17] MEDS ORDERED: Scopolamine Patch 1.5 MG PATCH.TD72 TD SCH (20:05)
[2018-04-17] MEDS ORDERED: traMADol 50 MG TABLET PO PRN (20:05)
[2018-04-17] MEDS ORDERED: Sennosides 8.6 MG TABLET PO PRN (20:05)
[2018-04-17] MEDS ORDERED: Ondansetron 4 MG/2 ML VIAL IVP PRN (20:05)
[2018-04-17] MEDS ORDERED: cloNIDine HCl 0.1 MG TABLET PO PRN (20:05)
[2018-04-18] MEDS: *HR* Enoxaparin 30 MG/0.3 ML SYRINGE SQ SCH ×2 (01:03→05:06)
[2018-04-18] MEDS ORDERED: FluocinoNIDE 0.05% CRM 15 GM TUBE TP PRN (01:20)
[2018-04-18] MEDS: Spironolactone 25 MG TABLET PO SCH ×4 (01:34→23:00)
[2018-04-18] MEDS: Furosemide 40 MG TABLET PO SCH ×3 (01:34→23:00)
[2018-04-18] MEDS: rOPINIRole 1 MG TABLET PO SCH ×2 (01:34→23:00)
[2018-04-18] MEDS: Ascorbic Acid 500 MG TABLET PO SCH ×3 (01:34→17:21)
[2018-04-18] MEDS: *HR* OxyCODONE Immed Rel 5 MG TABLET PO PRN ×4 (01:39→19:51)
[2018-04-18] MEDS: LEVETIRACETAM 1000 MG PO SCH ×2 (02:14→23:07)
[2018-04-18] MEDS: Ringers Solution, Lactated 1,000 ML IVC SCH ×2 (05:07→23:01)
[2018-04-18 05:58] LABS: Hematocrit 36.1 % (35.3-44.9); Hemoglobin 12.2 g/dL (11.5-15.4)
[2018-04-18 06:11] LABS: Calcium 8.5 mg/dL (8.6-10.3); Potassium 4.1 mEq/L (3.5-5.1)
--- NOTE | 2018-04-18 07:00 | Orthopedics Progress Note ---
Date of Encounter: 04/18/18 Time of Encounter: 06:59 - Assessment and Plan (1) Arthritis of left hip Current Visit: No Status: Chronic (2) Breakthrough seizure Current Visit: No Status: Chronic (3) CVA (cerebral vascular accident) Current Visit: No Status: Chronic Qualifiers: CVA mechanism: unspecified Qualified Code(s): I63.9 - Cerebral infarction, unspecified (4) DVT prophylaxis Current Visit: No Status: Chronic (5) Hypertension Current Visit: No Status: Chronic Qualifiers: Hypertension type: essential hypertension Qualified Code(s): I10 - Essential (primary) hypertension (6) CAD (coronary artery disease) Current Visit: No Status: Chronic Qualifiers: Coronary Disease-Associated Artery/Lesion type: [place] artery [place] vs. transplanted heart: [place] heart Associated angina: without angina Qualified Code(s): I25.10 - Atherosclerotic heart disease of [place] coronary artery without angina pectoris (7) CHF (congestive heart failure) Current Visit: No Status: Chronic Qualifiers: Qualified Code(s): I50.32 - Chronic diastolic (congestive) heart failure (8) COPD (chronic obstructive pulmonary disease) Current Visit: No Status: Chronic Qualifiers: COPD type: chronic bronchitis Chronic bronchitis type: mixed simple and mucopurulent Qualified Code(s): J41.8 - Mixed simple and mucopurulent chronic bronchitis (9) History of arteriovenous malformation (AVM) Current Visit: No Status: Chronic (10) History of gastric bypass Current Visit: No Status: Chronic (11) History of seizures Current Visit: No Status: Chronic (12) Iron deficiency Current Visit: No Status: Chronic (13) Status post total replacement of right hip Current Visit: Yes Status: Acute (14) Obesity (BMI 30.0-34.9) Current Visit: Yes Status: Chronic (15) Chronic kidney disease, stage III (moderate) Current Visit: Yes Status: Chronic (16) Arthritis of right hip Current Visit: Yes Status: Chronic Subjective Interval history: Patient was seen this morning doing well without complaints. Afebrile vital signs stable. Operative extremity: Neurovascularly intact Dressing clean dry and intact Calves nontender Assessment and plan: Continue with postoperative care Hematocrit 36, I discussed with patient that we obtained checkpoint that is in the trochanter of the right hip. Patient understands the minimal risk and agrees with following with x-rays. Patient has multiple areas of hardware and this poses were minimal concern since it is fixed in the bone. Objective Vital signs: Vital Signs Temp Pulse Resp BP Pulse Ox 04/18/18 04:53 98.2 F 78 16 88/63 96 04/18/18 03:50 16 92 04/17/18 23:12 97.7 F 78 112/75 98 04/17/18 22:24 74 16 112/75 99 04/17/18 20:53 98.5 F 90 16 126/77 99 04/17/18 19:30 98.5 F 81 22 128/70 100 04/17/18 19:02 98.2 F 88 20 129/76 99 04/17/18 19:00 98.2 F 88 16 129/76 99 04/17/18 18:43 97.8 F 80 14 144/80 96 04/17/18 18:33 90 14 120/72 99 04/17/18 18:23 97.8 F 90 16 118/71 96 04/17/18 18:13 93 16 140/69 96 04/17/18 18:03 89 16 118/80 99 04/17/18 17:53 98.2 F 92 16 110/76 100 04/17/18 15:48 72 18 118/44 98 04/17/18 14:52 18 139/62 99 04/17/18 14:44 98.5 F 62 18 139/62 99 Intake and Output 04/17/18 04/17/18 04/18/18 15:59 23:59 07:59 Intake Total 20 / 20 100 / 100 Output Total 200 / 200 900 / 900 Balance -180 / -180 -800 / -800 Intake: IV Fluids 20 / 20 100 / 100 Ancef Syringe 2,000 MG/20 ML 2, 20 / 20 000 mg In 20 ml @ 200 mls/hr IVPB PREOP ONE Rx#:[id number] Ancef 2,000 MG In 0.9 % Sodium 100 / 100 Chloride 100 ML @ 200 mls/hr IVPB Q8H [facility] Rx#:[id number] Output: Urine 900 / 900 Estimated Blood Loss 200 / 200 Other: Weight 72.121 kg 74.8 kg Patient Weight 04/18/18 23:59 Weight 74.8 kg - Labs CBC & BMP: 04/18/18 05:30 04/18/18 05:30 Labs: Abnormal lab results Creatinine 1.27 mg/dL (0.60-1.20) H 04/18/18 05:30 Est GFR ( Amer) 50 (> 60) L 04/18/18 05:30 Est GFR (Non-Af Amer) 41 (> 60) L 04/18/18 05:30 Glucose 195 mg/dL (70-105) H 04/18/18 05:30 Calcium 8.5 mg/dL (8.6-10.3) L 04/18/18 05:30 - VTE Documentation of Mechanical Device: Venous foot pump, device Consult Discharge Plan - Plan Referrals: Noé Skinner MD [Primary Care Provider] -
[2018-04-18] MEDS: FLUoxetine 20 MG CAPSULE PO SCH (08:54)
[2018-04-18] MEDS: Multivit/Ca/Min/Fe/FA 1 TAB TABLET PO SCH (08:55)
[2018-04-18] MEDS: Beclomethasone 80mcg MDI IH SCH ×2 (10:33→22:26)
[2018-04-18] MEDS ORDERED: Ketorolac 30 MG/ML VIAL IVP PRN (12:05)
[2018-04-18] MEDS: levETIRAcetam 250 MG TABLET PO SCH ×2 (13:27→17:22)
[2018-04-18] MEDS ORDERED: 0.9 % Sodium Chloride 500 ML IVC ONE (13:54)
[2018-04-18] MEDS ORDERED: *HR* Enoxaparin 30 MG/0.3 ML SYRINGE SQ SCH (18:00)
--- NOTE | 2018-04-18 20:21 | Event Note ---
Date of Encounter: 04/18/18 Time of Encounter: 12:15 PCR - POD#1 s/p Right Total Hip Replacment robotic-assisted 04/17 Patient seen at bedside. A&O x 3 She states she has chronic nausea for which she takes morphine suppository with phenergan at home. She is requesting to continue this regimen. This was discussed with Dr. Gilbert who is in agreement with this plan. Afebrile, vital signs stable at time of exam except for lower BP 101/60 - will give fluid bolus. Dressings have small amount drainage at posterior end - will continue to monitor Labs reviewed. 04/18: H/H 12.2/36.1- stable, asymptomatic. Cr 1.27, GFR 41. she does have CKDIII, will give fluid bolus Pain control: adequate Participating in PT. All questions and concerns addressed. Educated on use of incentive spirometer. Encouraged ambulation and proper hydration. Patient educated on post-operative restrictions and post-operative care. Assessment and plan: Continue with postoperative care Discharge plan: ECF pending auth
[2018-04-19 01:41] LABS: Hematocrit 29.5 % (35.3-44.9)
[2018-04-19 01:42] LABS: Hemoglobin 10.2 g/dL (11.5-15.4)
[2018-04-19 01:58] LABS: BUN/Creatinine Ratio 17 (6-26); Blood Urea Nitrogen 16 mg/dL (8-23); Calcium 7.8 mg/dL (8.6-10.3); Carbon Dioxide 25 mEq/L (23-29); Chloride 103 mEq/L (98-107); Glucose 149 mg/dL (70-105); Osmolality,Calculated 286 (280-300); Potassium 3.2 mEq/L (3.5-5.1); Sodium 136 mEq/L (136-145); eGFR For Non-African Americans 59 (> 60)
[2018-04-19] MEDS: *HR* OxyCODONE Immed Rel 5 MG TABLET PO PRN ×3 (06:04→20:41)
[2018-04-19] MEDS: levETIRAcetam 250 MG TABLET PO SCH ×2 (06:04→16:56)
[2018-04-19] MEDS: Spironolactone 25 MG TABLET PO SCH ×3 (08:51→20:39)
[2018-04-19] MEDS: Ascorbic Acid 500 MG TABLET PO SCH ×2 (08:51→16:56)
[2018-04-19] MEDS: FLUoxetine 20 MG CAPSULE PO SCH (08:52)
[2018-04-19] MEDS: Furosemide 40 MG TABLET PO SCH ×2 (08:52→20:39)
[2018-04-19] MEDS: Multivit/Ca/Min/Fe/FA 1 TAB TABLET PO SCH (08:52)
[2018-04-19] MEDS: Beclomethasone 80mcg MDI IH SCH ×2 (10:39→20:19)
[2018-04-19] MEDS: *HR* Enoxaparin 30 MG/0.3 ML SYRINGE SQ SCH (16:56)
--- NOTE | 2018-04-19 17:59 | Orthopedics Progress Note ---
Date of Encounter: 04/19/18 Time of Encounter: 12:25 Subjective Interval history: PCR - POD#2 s/p Right Total Hip Replacment robotic-assisted 04/17 Patient seen at bedside. A&O x 3 She states she has chronic nausea for which she takes morphine suppository with phenergan at home. She is requesting to continue this regimen. This was discussed with Dr. Gilbert who is in agreement with this plan. update 04/19 - nausea is better controlled with her regular regimen Afebrile, vital signs stable at time of exam. Temp did reach max Temp of 100 overnight but improved to 98.5 at time of exam Dressings c/d/i with no visible erythema or drainage. No calf tenderness to palpation, good dorsiflexion of foot. grossly NV intact. Labs reviewed. 04/18: H/H 12.2/36.1- stable, asymptomatic. Cr 1.27, GFR 41. she does have CKDIII, will give fluid bolus 04/19: H/H 10.2/29.5, Cr and GFR improved Pain control: adequate Participating in PT. All questions and concerns addressed. Educated on use of incentive spirometer. Encouraged ambulation and proper hydration. Patient educated on post-operative restrictions and post-operative care. Assessment and plan: Continue with postoperative care Discharge plan: [facility] 04/20 Objective Vital signs: Vital Signs Temp Pulse Resp BP Pulse Ox 04/19/18 16:21 99.7 F H 64 18 125/71 96 04/19/18 14:56 98.6 F 81 18 124/75 98 04/19/18 10:40 16 97 04/19/18 10:14 98.5 F 87 16 123/68 96 04/19/18 06:26 98.9 F 84 16 118/67 97 04/19/18 04:43 17 96 04/19/18 03:29 100 F H 78 17 111/73 94 04/18/18 23:59 99 F 89 18 114/73 92 04/18/18 22:26 16 95 04/18/18 22:06 99.8 F H 83 17 112/72 92 Intake and Output 04/19/18 04/19/18 04/19/18 07:59 15:59 23:59 Intake Total 240 / 240 Output Total 800 / 800 650 / 650 Balance -800 / -800 -410 / -410 Intake: Oral 240 / 240 Output: Urine 800 / 800 650 / 650 Other: Meal Lunch Percent of Meal Consumed 60% Weight 73.9 kg Patient Weight 04/19/18 23:59 Weight 73.9 kg - Labs CBC & BMP: 04/19/18 01:20 04/19/18 01:20 Labs: Abnormal lab results Hgb 10.2 g/dL (11.5-15.4) L D 04/19/18 01:20 Hct 29.5 % (35.3-44.9) L 04/19/18 01:20 Potassium 3.2 mEq/L (3.5-5.1) L 04/19/18 01:20 Est GFR (Non-Af Amer) 59 (> 60) L 04/19/18 01:20 Glucose 149 mg/dL (70-105) H 04/19/18 01:20 Calcium 7.8 mg/dL (8.6-10.3) L 04/19/18 01:20 - VTE Documentation of Mechanical Device: Venous foot pump, device Consult Discharge Plan - Plan Referrals: Noé Skinner MD [Primary Care Provider] -
[2018-04-19] MEDS: rOPINIRole 1 MG TABLET PO SCH (20:38)
[2018-04-19] MEDS: LEVETIRACETAM 1000 MG PO SCH (21:26)
[2018-04-20] MEDS: levETIRAcetam 250 MG TABLET PO SCH ×2 (05:29→16:17)
[2018-04-20] MEDS: *HR* Enoxaparin 30 MG/0.3 ML SYRINGE SQ SCH ×2 (05:29→16:17)
[2018-04-20] MEDS: Multivit/Ca/Min/Fe/FA 1 TAB TABLET PO SCH (08:09)
[2018-04-20] MEDS: FLUoxetine 20 MG CAPSULE PO SCH (08:10)
[2018-04-20] MEDS: Furosemide 40 MG TABLET PO SCH (08:11)
[2018-04-20] MEDS: Spironolactone 25 MG TABLET PO SCH ×2 (08:11→16:17)
[2018-04-20] MEDS: *HR* OxyCODONE Immed Rel 5 MG TABLET PO PRN ×2 (08:11→16:17)
[2018-04-20] MEDS: Ascorbic Acid 500 MG TABLET PO SCH ×2 (08:11→16:17)
--- NOTE | 2018-04-20 08:39 | Orthopedics Progress Note ---
Date of Encounter: 04/20/18 Time of Encounter: 08:39 - Assessment and Plan (1) Arthritis of left hip Current Visit: No Status: Chronic (2) Breakthrough seizure Current Visit: No Status: Chronic (3) CVA (cerebral vascular accident) Current Visit: No Status: Chronic Qualifiers: CVA mechanism: unspecified Qualified Code(s): I63.9 - Cerebral infarction, unspecified (4) DVT prophylaxis Current Visit: No Status: Chronic (5) Hypertension Current Visit: No Status: Chronic Qualifiers: Hypertension type: essential hypertension Qualified Code(s): I10 - Essential (primary) hypertension (6) CAD (coronary artery disease) Current Visit: No Status: Chronic Qualifiers: Coronary Disease-Associated Artery/Lesion type: [place] artery [place] vs. transplanted heart: [place] heart Associated angina: without angina Qualified Code(s): I25.10 - Atherosclerotic heart disease of [place] coronary artery without angina pectoris (7) CHF (congestive heart failure) Current Visit: No Status: Chronic Qualifiers: Qualified Code(s): I50.32 - Chronic diastolic (congestive) heart failure (8) COPD (chronic obstructive pulmonary disease) Current Visit: No Status: Chronic Qualifiers: COPD type: chronic bronchitis Chronic bronchitis type: mixed simple and mucopurulent Qualified Code(s): J41.8 - Mixed simple and mucopurulent chronic bronchitis (9) History of arteriovenous malformation (AVM) Current Visit: No Status: Chronic (10) History of gastric bypass Current Visit: No Status: Chronic (11) History of seizures Current Visit: No Status: Chronic (12) Iron deficiency Current Visit: No Status: Chronic (13) Status post total replacement of right hip Current Visit: Yes Status: Acute (14) Obesity (BMI 30.0-34.9) Current Visit: Yes Status: Chronic (15) Chronic kidney disease, stage III (moderate) Current Visit: Yes Status: Chronic (16) Arthritis of right hip Current Visit: Yes Status: Chronic Subjective Interval history: Patient was seen this morning doing well without complaints. Afebrile vital signs stable. Operative extremity: Neurovascularly intact Dressing clean dry and intact Calves nontender Assessment and plan: Continue with postoperative care Hematocrit 29 doing well no complaints discharged today Objective Vital signs: Vital Signs Temp Pulse Resp BP Pulse Ox 04/20/18 06:37 99.0 F 63 16 105/68 94 04/20/18 04:07 98.3 F 59 16 100/67 93 04/20/18 03:51 18 95 04/19/18 23:56 98.1 F 77 16 95/64 93 04/19/18 21:08 98.1 F 75 16 108/57 93 04/19/18 20:50 93 04/19/18 20:21 16 91 04/19/18 16:21 99.7 F H 64 18 125/71 96 04/19/18 14:56 98.6 F 81 18 124/75 98 04/19/18 10:40 16 97 04/19/18 10:14 98.5 F 87 16 123/68 96 Intake and Output 04/19/18 04/20/18 04/20/18 23:59 07:59 15:59 Intake Total 240 / 240 200 / 200 Output Total 500 / 500 600 / 600 Balance -260 / -260 -400 / -400 Intake: Oral 240 / 240 200 / 200 Output: Urine 500 / 500 600 / 600 Other: Meal Dinner Percent of Meal Consumed 5% # Voids 1 Weight 73.8 kg Patient Weight 04/20/18 23:59 Weight 73.8 kg - Labs CBC & BMP: 04/19/18 01:20 04/19/18 01:20 Labs: Abnormal lab results Hgb 10.2 g/dL (11.5-15.4) L D 04/19/18 01:20 Hct 29.5 % (35.3-44.9) L 04/19/18 01:20 Potassium 3.2 mEq/L (3.5-5.1) L 04/19/18 01:20 Est GFR (Non-Af Amer) 59 (> 60) L 04/19/18 01:20 Glucose 149 mg/dL (70-105) H 04/19/18 01:20 Calcium 7.8 mg/dL (8.6-10.3) L 04/19/18 01:20 - VTE Documentation of Mechanical Device: Venous foot pump, device Consult Discharge Plan - Plan Referrals: Noé Skinner MD [Primary Care Provider] -
[2018-04-20] MEDS: Beclomethasone 80mcg MDI IH SCH (10:47)
[2018-04-20 12:14] LABS: Basophils % 0.5 %; Eosinophils # 0.1 K/mcL (0.0-0.6); Eosinophils % 0.7 %; Hematocrit 30.2 % (35.3-44.9); Hemoglobin 10.3 g/dL (11.5-15.4); Immature Granulocytes % 0.6 % (0-4); Lymphocytes # 1.4 K/mcL (0.6-4.6); Lymphocytes % 15.8 %; Mean Corpuscular HGB Conc 34.1 g/dL (31.6-35.5); Mean Corpuscular Hemoglobin 30.2 pg (28.0-33.3); Mean Corpuscular Volume 88.6 fL (83.0-100.0); Monocytes # 0.8 K/mcL (0.0-1.3); Monocytes % 8.9 %; Neutrophils # 6.5 K/mcL (1.6-8.9); Platelet Count 170 K/mcL (140-400); Red Blood Count 3.41 M/mcL (3.82-4.97); Red Cell Distribution Width 12.4 % (11.5-14.5); Segmented Neutrophils % 73.5 %
[2018-04-20 12:36] LABS: BUN/Creatinine Ratio 15 (6-26); Blood Urea Nitrogen 15 mg/dL (8-23); Carbon Dioxide 29 mEq/L (23-29); Chloride 103 mEq/L (98-107); Glucose 110 mg/dL (70-105); Osmolality,Calculated 289 (280-300); Potassium 3.3 mEq/L (3.5-5.1); Sodium 139 mEq/L (136-145); eGFR For Non-African Americans 54 (> 60)
[2018-04-20 15:13] VITALS: BP 107/71
[2018-04-22] MEDS ORDERED: Cyanocobalamin (B-12) 1,000 MCG/ML VIAL IM SCH (09:00)
== END 2018-04-20 18:33 | DRG 470 ==
LOC: SAMDAY 13:50 → 3NENU 19:08
PROVIDERS: ADMIT Orthopaedic Surgery; ATTEND Orthopaedic Surgery

== ENCOUNTER 2018-04-23 15:28 | Observation (INO) ==
[2018-04-23] MEDS ORDERED: Pantoprazole 40 MG VIAL IVP ONE (15:43)
[2018-04-23] MEDS ORDERED: 0.9 % Sodium Chloride 500 ML IVC ONE (15:43)
[2018-04-23] MEDS ORDERED: *HR* Promethazine 25 MG/ML VIAL IVP ONE (15:46)
--- NOTE | 2018-04-23 15:53 | Emergency Department Note ---
Disposition Clinical Impression: Acute vomiting, History of coronary artery disease, Abnormal EKG, Hypokalemia Vomiting Qualifiers: Vomiting type: unspecified Vomiting Intractability: unspecified Nausea presence : unspecified Qualified Code(s): R11.10 - Vomiting, unspecified Disposition: Admitted As Inpatient Condition: Fair Referrals: Noé Skinner MD [Primary Care Provider] - Forms: ED Satisfaction Letter Time of Disposition: 17:56 General Adult HPI - General Chief complaint: ED Nausea/Vomiting/Diarrhea Stated complaint: Vomiting Time Seen by Provider: 04/23/18 15:38 Source: patient, EMS Mode of arrival: EMS Limitations: no limitations Nursing Notes Reviewed: Yes Vital Signs Reviewed: Yes - History of Present Illness HPI Narrative: 73-year-old female presents for evaluation of nausea vomiting. Patient states she has had decreased oral intake over the past 2 days. Symptom onsets been over the past 2 days. Denies any abdominal pain. Denies any chest pain or shortness of breath. No fevers. Patient states that typically Phenergan and a lot of help with her symptoms. Patient did present from an assisted living facility. Patient denies any dysuria or hematuria. No diarrhea or constipation. Patient does have significant surgical history in the past. States she does have a history of ulcers which required operative intervention. Patient also states she has a history of heart attack in the past. Patient denies any dizziness. No focal neurologic signs. Patient states that she just gets these episodes of nausea and has dry heaves. Pain Scale: 0 - Related Data Home Medications Medication Instructions Recorded Confirmed Atorvastatin [Lipitor] 20 mg PO HS 05/06/15 04/17/18 Ropinirole HCl [Requip] 2 mg PO HS 05/06/15 04/17/18 Cyanocobalamin (B-12) [Vitamin B12] 1,000 mcg IM QMONTH 11/13/15 04/17/18 Potassium Chloride [K-Tab ER] 10 - 20 meq PO DAILY 11/13/15 04/17/18 Scopolamine Patch [Transderm-Scop] 1.5 mg TD Q72H 11/13/15 04/17/18 LevETIRAcetam [Keppra Xr] 1,000 mg PO HS 04/29/16 04/17/18 Zolpidem Tartrate [Ambien Cr] 12.5 mg PO HS PRN 04/29/16 04/17/18 Nitroglycerin 1 - 2 spr PO ONCE PRN 07/01/16 04/17/18 SUMAtriptan succinate [Imitrex] 50 mg PO DAILY PRN 07/01/16 04/17/18 FLUoxetine HCl [Fluoxetine HCl] 40 mg PO QAM 07/27/16 04/17/18 Fluticasone Propionate [Flovent 2 puff IH BID 07/27/16 04/17/18 Hfa] Nystatin Cream [Mycostatin Cream] 1 appl TP BID PRN 09/27/16 04/17/18 Promethazine [Phenergan] 50 mg RC Q6HR PRN 09/27/16 04/17/18 Spironolactone [Aldactone] 25 mg PO TID 10/26/17 04/17/18 cloNIDine HCl [CloNIDine HCl] 0.1 mg PO DAILY PRN 10/26/17 04/17/18 Albuterol Sulfate [Albuterol 2 puff IH Q6H PRN 04/17/18 04/17/18 Inhaler] Betamethasone Dipropionate 1 appl TP DAILY PRN 04/17/18 04/17/18 Clopidogrel [Plavix] 75 mg PO DAILY 04/17/18 04/17/18 Ergocalciferol (VITAMIN D2) 50,000 unit PO MOWETHSA 04/17/18 04/17/18 [Vitamin D2] Furosemide [Lasix] 40 mg PO BID 04/17/18 04/17/18 OxyCODONE/APAP 5/325 [Percocet 1 tab PO Q8HR PRN 04/17/18 04/17/18 5/325 MG] Previous Rx's Medication Instructions Recorded Dronabinol [Marinol] 10 mg PO BID #8 capsule 07/30/16 Raloxifene [Evista] 60 mg PO DAILY #90 tablet 03/03/18 Enoxaparin [Lovenox] 30 mg SQ Q12HR #20 syr 04/16/18 OxyCODONE Immed Rel [Roxicodone 5 5 mg PO Q6HR PRN 7 Days #28 tablet 04/16/18 MG] Allergies Allergy/AdvReac Type Severity Reaction Status Date / Time prednisone Allergy Unknown unknown Verified 10/26/17 09:57 salicylates [Salicylate] Allergy Unknown unknown Verified 10/26/17 09:57 acetaminophen AdvReac Intermediate See Verified 10/26/17 09:57 [From Lily] Comments adhesive AdvReac Unknown Blister Verified 10/26/17 09:57 aspirin AdvReac Unknown bleeding Verified 10/26/17 09:57 divalproex sodium AdvReac Unknown hallucinati Verified 10/26/17 09:57 on metoclopramide AdvReac Unknown Nausea Verified 10/26/17 09:57 ondansetron AdvReac Unknown Nausea Verified 10/26/17 09:57 propoxyphene AdvReac Unknown feeling of Verified 10/26/17 09:57 bugs crawling adhesive tape AdvReac Blister Verified 10/26/17 09:57 ibuprofen AdvReac Nausea Verified 10/26/17 09:57 stool softener AdvReac Unknown Shakiness Uncoded 10/26/17 09:57 All systems ED: reviewed and negative except as stated. Constitutional: Denies: fever Cardiovascular: Denies: chest pain Respiratory: Denies: cough Gastrointestinal: Reports: nausea, vomiting. Denies: abdominal pain, diarrhea, constipation Past Medical History - Past Medical History Source: patient Medical history: Reports: asthma, CHF, coronary artery disease, dementia, hyperlipidemia, hypertension, migraine, myocardial infarction, osteoporosis, renal disease, seizures, SVT, other Surgical history: Reports: angioplasty/stent, cholecystectomy, hysterectomy, orthopedic, other, other Psychiatric history: Reports: anxiety, depression - Social History Smoking Status: Former smoker Smokeless Tobacco Status: No Alcohol use: Reports: none Drug use: Reports: none Physical Exam - General Limitations: no limitations General appearance: alert, in no apparent distress - Head Head exam: atraumatic, normocephalic, normal inspection - Eye Eye exam: Present: normal appearance, PERRL, EOMI, nystagmus (Right beating horizontal). Absent: miosis, mydriasis - ENT ENT exam: normal exam, normal oropharynx, mucous membranes moist - Neck Neck exam: Present: normal inspection. Absent: tenderness - Chest Chest inspection: Present: normal inspection, symmetric chest wall rise - Respiratory Respiratory exam: Present: normal lung sounds bilaterally. Absent: respiratory distress - Cardiovascular Cardiovascular exam: Present: regular rate, normal rhythm. Absent: systolic murmur - Abdominal Exam Abdominal exam: Present: soft, Non-Tender, scar. Absent: guarding, rebound - Extremities Exam Extremities exam: Present: normal inspection. Absent: pedal edema - Expanded Lower Extremity Exam Neurovascular/Tendon exam: Present: normal capillary refill - Back Exam Back exam: Present: normal inspection - Neurological Exam Neurological exam: Present: alert, oriented X3, CN II-XII intact - Skin Skin exam: Present: warm, dry, intact, normal color Course Course Narrative: Patient seen and examined. Patient appears to be no acute distress. Patient get basic labs including a urinalysis. Patient also get a screening cardiopulmonary evaluation since she has a history of CAD with nausea and vomiting. Disposition pending. - Reevaluation(s) Reevaluation #1: Patient's resting comfortably. Patient states that her symptoms have improved. Patient does state that she has had 4 heart attacks in the past with 2 stents on Plavix. States that her heart attacks in the past presented with vomiting. Concerns that this may be an ACS equivalent. Time: 17:37 Vital Signs Temperature 99.1 F 04/23/18 15:31 Pulse Rate 93 04/23/18 15:31 Respiratory Rate 16 04/23/18 15:31 Blood Pressure 128/75 04/23/18 15:31 O2 Sat by Pulse Oximetry 94 04/23/18 15:31 Temperature 99.2 F 04/23/18 17:55 Pulse Rate 80 04/23/18 17:55 Respiratory Rate 20 04/23/18 17:55 Blood Pressure 113/74 04/23/18 17:55 O2 Sat by Pulse Oximetry 100 04/23/18 17:55 Oxygen Delivery Oxygen Delivery Room Air Medical Decision Making - [facility] Narrative Medical decision making narrative: 73-year-old female persists for evaluation of nausea vomiting. Patient does have a concerning history of ACS with similar presentations. Patient has had 4 heart attacks in 2 stents on Plavix. States she has had vomiting over the past 2 days. Decreased by mouth intake. Patient denies any significant chest pain however concerns of ACS equivalent with prior atypical presentations. Patient is allergic to aspirin did take her Plavix earlier today. Patient's symptoms were controlled with anti-medics. Patient's CT scan does not show any evidence of obstruction given her history of prior abdominal surgeries. Patient denies any neurologic complaints. States that she does have a known AVM that is stable and has been followed by providers in the past. Patient denies any dizziness or vertiginous symptoms that would provoke her nausea and vomiting. Patient had a cardiac evaluation which revealed a negative troponin however the patient did have some T-wave inversions in the anterior leads which were new from July 2017. Looking back the patient has had an echo in October 2017 which showed an EF of 60-65%. Concerns of potential atypical presentation. Patient will be admitted for ACS rule out. Anticoagulation was not performed in the ED due to negative troponin resolution of the patient's symptoms. Patient was agreeable with admission for further evaluation. - Lab Data Lab results reviewed: Yes I reviewed the patient's lab results. Result diagrams: 04/23/18 15:53 04/23/18 15:53 Lab Results 04/23/18 04/23/18 04/23/18 Range/Units 15:43 15:44 15:46 WBC (4.3-11.1) K/mcL RBC (3.82-4.97) M/mcL Hgb (11.5-15.4) g/dL Hct (35.3-44.9) % MCV (83.0-100.0) fL MCH (28.0-33.3) pg MCHC (31.6-35.5) g/dL RDW (11.5-14.5) % Plt Count (140-400) K/mcL MPV (9.4-12.4) fL Immature Gran % (0-4) % Seg Neutrophils % % Lymphocytes % % Monocytes % % Eosinophils % % Basophils % % Neutrophils # (1.6-8.9) K/mcL Lymphocytes # (0.6-4.6) K/mcL Monocytes # (0.0-1.3) K/mcL Eosinophils # (0.0-0.6) K/mcL Basophils # (0.0-0.2) K/mcL PT 13.6 H (9.4-12.1) Seconds INR 1.2 APTT 33.0 (26.0-36.0) Seconds Sodium (136-145) mEq/L Potassium (3.5-5.1) mEq/L Chloride (98-107) mEq/L Carbon Dioxide (23-29) mEq/L BUN (8-23) mg/dL Creatinine (0.60-1.20) mg/dL Est GFR ( Amer) (> 60) Est GFR (Non-Af Amer) (> 60) BUN/Creatinine Ratio (6-26) Glucose (70-105) mg/dL Calculated Osmolality (280-300) Calcium (8.6-10.3) mg/dL Magnesium (1.6-2.6) mg/dL Total Bilirubin 0.8 (0.3-1.0) mg/dL Direct Bilirubin 0.2 (0.0-0.2) mg/dL Indirect Bilirubin 0.6 (0.0-1.2) mg/dL AST 17 (13-39) Units/L ALT 10 (7-52) Units/L Alkaline Phosphatase 45 (34-104) Units/L Troponin I (< 0.04) ng/mL B-Natriuretic Peptide 64 (Less than 100) pg/mL Serum Total Protein 6.6 (6.4-8.9) g/dL Albumin 3.9 (3.5-5.7) g/dL Globulin 2.7 (2.4-3.5) g/dL Albumin/Globulin Ratio 1.4 (1.1-2.2) Lipase (11-82) Units/L Urine Color (Yellow) Urine Clarity (Clear) Urine pH (5.0-8.0) pH Units Ur Specific [place] (1.010-1.025) Urine Protein (Neg-Trace) mg/dL Urine Glucose (UA) (Normal) mg/dL Urine Ketones (Negative) mg/dL Urine Blood (Negative) Urine Nitrite (Negative) Urine Bilirubin (Negative) Urine Urobilinogen (Normal) mg/dL Ur Leukocyte Esterase (Negative) 04/23/18 04/23/18 04/23/18 Range/Units 15:53 15:53 17:05 WBC 12.4 H (4.3-11.1) K/mcL RBC 3.96 (3.82-4.97) M/mcL Hgb 11.9 D (11.5-15.4) g/dL Hct 34.2 L (35.3-44.9) % MCV 86.4 (83.0-100.0) fL MCH 30.1 (28.0-33.3) pg MCHC 34.8 (31.6-35.5) g/dL RDW 12.2 (11.5-14.5) % Plt Count 302 D (140-400) K/mcL MPV 10.0 (9.4-12.4) fL Immature Gran % 1.0 (0-4) % Seg Neutrophils % 78.8 % Lymphocytes % 12.9 % Monocytes % 6.9 % Eosinophils % 0.2 % Basophils % 0.2 % Neutrophils # 9.8 H (1.6-8.9) K/mcL Lymphocytes # 1.6 (0.6-4.6) K/mcL Monocytes # 0.9 (0.0-1.3) K/mcL Eosinophils # 0.0 (0.0-0.6) K/mcL Basophils # 0.0 (0.0-0.2) K/mcL PT (9.4-12.1) Seconds INR APTT (26.0-36.0) Seconds Sodium 139 (136-145) mEq/L Potassium 3.1 L (3.5-5.1) mEq/L Chloride 103 (98-107) mEq/L Carbon Dioxide 27 (23-29) mEq/L BUN 34 H (8-23) mg/dL Creatinine 1.05 (0.60-1.20) mg/dL Est GFR ( Amer) > 60 (> 60) Est GFR (Non-Af Amer) 52 L (> 60) BUN/Creatinine Ratio 32 H (6-26) Glucose 126 H (70-105) mg/dL Calculated Osmolality 297 (280-300) Calcium 7.7 L (8.6-10.3) mg/dL Magnesium 2.3 (1.6-2.6) mg/dL Total Bilirubin (0.3-1.0) mg/dL Direct Bilirubin (0.0-0.2) mg/dL Indirect Bilirubin (0.0-1.2) mg/dL AST (13-39) Units/L ALT (7-52) Units/L Alkaline Phosphatase (34-104) Units/L Troponin I < 0.03 (< 0.04) ng/mL B-Natriuretic Peptide (Less than 100) pg/mL Serum Total Protein (6.4-8.9) g/dL Albumin (3.5-5.7) g/dL Globulin (2.4-3.5) g/dL Albumin/Globulin Ratio (1.1-2.2) Lipase 16 (11-82) Units/L Urine Color Yellow (Yellow) Urine Clarity Clear (Clear) Urine pH 6.0 (5.0-8.0) pH Units Ur Specific [place] 1.011 (1.010-1.025) Urine Protein Negative (Neg-Trace) mg/dL Urine Glucose (UA) Normal (Normal) mg/dL Urine Ketones 15 H (Negative) mg/dL Urine Blood Negative (Negative) Urine Nitrite Negative (Negative) Urine Bilirubin Negative (Negative) Urine Urobilinogen Normal (Normal) mg/dL Ur Leukocyte Esterase Negative (Negative) - Radiology Data Radiology results reviewed: Yes I reviewed the patient's radiology results. Chest X-Ray 04/23/18 15:43 IMPRESSION: No significant findings in the chest. D/ / Kyle Connell MD / Kyle Connell MD Interpreting Provider: Kyle Connell MD Abdomen/Pelvis CT 04/23/18 15:45 IMPRESSION: Postsurgical changes of recent right hip replacement. No acute noncontrast abdominopelvic abnormality. D/ / Rocío Miles Cha, MD / Rocío Miles Cha, MD Interpreting Provider: Rocío Miles Cha, MD - EKG Data EKG #1 EKG attestation: Yes I reviewed and interpreted this EKG. EKG shows normal: sinus rhythm Rate: normal Rhythm: NSR [place]/QRS: normal T wave inversions noted in: v1, v2, v3 When compared to previous EKG there are: changes noted Interpretation: nonspecific ST-T wave changes S.B.A.R. - S.B.[place]un Situation: Demographics Background: Presenting Complaint Assessment: Vital Signs, Course and respsone to treatment, Patient/Family Expectation Recommendation: Barrier(s) to disposition, Recommendation based on pending studies, treatments, or consults S.B.A.Dharmesh Report Given to: Dr. Bird Hughes Repor Time: 17:54
[2018-04-23 17:20] LABS: Bilirubin,Urine Negative (Negative); Blood,Urine Negative (Negative); Clarity,Urine Clear (Clear); Color,Urine Yellow (Yellow); Glucose,Urine (UA) Normal (Normal); Ketones,Urine 15 mg/dL (Negative); Leukocyte Esterase,Urine Negative (Negative); Nitrite,Urine Negative (Negative); Protein,Urine Negative (Neg-Trace); Specific Gravity,Urine 1.011 (1.010-1.025); Urobilinogen,Urine Normal (Normal)
--- NOTE | 2018-04-23 17:26 | Emergency Department Note ---
Disposition Clinical Impression: Acute vomiting Disposition: Admitted As Inpatient Forms: ED Satisfaction Letter General Adult HPI - General Chief complaint: ED Nausea/Vomiting/Diarrhea Stated complaint: Vomiting Time Seen by Provider: 04/23/18 15:38 Source: patient, EMS Mode of arrival: EMS Limitations: no limitations - History of Present Illness Pain Scale: 0 - Related Data Home Medications Medication Instructions Recorded Confirmed Atorvastatin [Lipitor] 20 mg PO HS 05/06/15 04/17/18 Ropinirole HCl [Requip] 2 mg PO HS 05/06/15 04/17/18 Cyanocobalamin (B-12) [Vitamin B12] 1,000 mcg IM QMONTH 11/13/15 04/17/18 Potassium Chloride [K-Tab ER] 10 - 20 meq PO DAILY 11/13/15 04/17/18 Scopolamine Patch [Transderm-Scop] 1.5 mg TD Q72H 11/13/15 04/17/18 LevETIRAcetam [Keppra Xr] 1,000 mg PO HS 04/29/16 04/17/18 Zolpidem Tartrate [Ambien Cr] 12.5 mg PO HS PRN 04/29/16 04/17/18 Nitroglycerin 1 - 2 spr PO ONCE PRN 07/01/16 04/17/18 SUMAtriptan succinate [Imitrex] 50 mg PO DAILY PRN 07/01/16 04/17/18 FLUoxetine HCl [Fluoxetine HCl] 40 mg PO QAM 07/27/16 04/17/18 Fluticasone Propionate [Flovent 2 puff IH BID 07/27/16 04/17/18 Hfa] Nystatin Cream [Mycostatin Cream] 1 appl TP BID PRN 09/27/16 04/17/18 Promethazine [Phenergan] 50 mg RC Q6HR PRN 09/27/16 04/17/18 Spironolactone [Aldactone] 25 mg PO TID 10/26/17 04/17/18 cloNIDine HCl [CloNIDine HCl] 0.1 mg PO DAILY PRN 10/26/17 04/17/18 Albuterol Sulfate [Albuterol 2 puff IH Q6H PRN 04/17/18 04/17/18 Inhaler] Betamethasone Dipropionate 1 appl TP DAILY PRN 04/17/18 04/17/18 Clopidogrel [Plavix] 75 mg PO DAILY 04/17/18 04/17/18 Ergocalciferol (VITAMIN D2) 50,000 unit PO MOWETHSA 04/17/18 04/17/18 [Vitamin D2] Furosemide [Lasix] 40 mg PO BID 04/17/18 04/17/18 OxyCODONE/APAP 5/325 [Percocet 1 tab PO Q8HR PRN 04/17/18 04/17/18 5/325 MG] Previous Rx's Medication Instructions Recorded Dronabinol [Marinol] 10 mg PO BID #8 capsule 07/30/16 Raloxifene [Evista] 60 mg PO DAILY #90 tablet 03/03/18 Enoxaparin [Lovenox] 30 mg SQ Q12HR #20 syr 04/16/18 OxyCODONE Immed Rel [Roxicodone 5 5 mg PO Q6HR PRN 7 Days #28 tablet 04/16/18 MG] Allergies Allergy/AdvReac Type Severity Reaction Status Date / Time prednisone Allergy Unknown unknown Verified 10/26/17 09:57 salicylates [Salicylate] Allergy Unknown unknown Verified 10/26/17 09:57 acetaminophen AdvReac Intermediate See Verified 10/26/17 09:57 [From Lily] Comments adhesive AdvReac Unknown Blister Verified 10/26/17 09:57 aspirin AdvReac Unknown bleeding Verified 10/26/17 09:57 divalproex sodium AdvReac Unknown hallucinati Verified 10/26/17 09:57 on metoclopramide AdvReac Unknown Nausea Verified 10/26/17 09:57 ondansetron AdvReac Unknown Nausea Verified 10/26/17 09:57 propoxyphene AdvReac Unknown feeling of Verified 10/26/17 09:57 bugs crawling adhesive tape AdvReac Blister Verified 10/26/17 09:57 ibuprofen AdvReac Nausea Verified 10/26/17 09:57 stool softener AdvReac Unknown Shakiness Uncoded 10/26/17 09:57 Constitutional: Denies: fever Cardiovascular: Denies: chest pain Respiratory: Denies: cough Gastrointestinal: Reports: nausea, vomiting. Denies: abdominal pain, diarrhea, constipation Past Medical History - Past Medical History Medical history: Reports: asthma, CHF, coronary artery disease, dementia, hyperlipidemia, hypertension, migraine, myocardial infarction, osteoporosis, renal disease, seizures, SVT, other Surgical history: Reports: angioplasty/stent, cholecystectomy, hysterectomy, orthopedic, other, other Psychiatric history: Reports: anxiety, depression - Social History Smoking Status: Former smoker Smokeless Tobacco Status: No Alcohol use: Reports: none Drug use: Reports: none Physical Exam - General Limitations: no limitations General appearance: alert, in no apparent distress Course Vital Signs Temperature 99.1 F 04/23/18 15:31 Pulse Rate 93 04/23/18 15:31 Respiratory Rate 16 04/23/18 15:31 Blood Pressure 128/75 04/23/18 15:31 O2 Sat by Pulse Oximetry 94 04/23/18 15:31 Temperature 99.1 F 04/23/18 15:31 Pulse Rate 81 04/23/18 16:30 Respiratory Rate 18 04/23/18 16:30 Blood Pressure 117/75 04/23/18 16:30 O2 Sat by Pulse Oximetry 96 04/23/18 16:30 Oxygen Delivery Oxygen Delivery Room Air Attestation Statement - Attestation Attestation: I examined this patient and my medical decision-making was reviewed with the Resident Physician. I agree with the documented findings, disposition and treatment plan as described except to the extent set forth below. 73 year old female presents to the ED with complaints of vomitting and appears to have a histroy of four cardiac stents and states that she has been having continue vomitting. We will do a cardiopulomnary and abdominal workup and lkey admit to medicine for ACS rule out bcause she does have new t wave inversions in the anteroir leads that were not presents one year ago
[2018-04-23 17:32] LABS: Basophils % 0.2 %; Eosinophils % 0.2 %; Hematocrit 34.2 % (35.3-44.9); Lymphocytes # 1.6 K/mcL (0.6-4.6); Lymphocytes % 12.9 %; Mean Corpuscular HGB Conc 34.8 g/dL (31.6-35.5); Mean Corpuscular Hemoglobin 30.1 pg (28.0-33.3); Mean Corpuscular Volume 86.4 fL (83.0-100.0); Monocytes # 0.9 K/mcL (0.0-1.3); Monocytes % 6.9 %; Neutrophils # 9.8 K/mcL (1.6-8.9); Platelet Count 302 K/mcL (140-400); Red Blood Count 3.96 M/mcL (3.82-4.97); Red Cell Distribution Width 12.2 % (11.5-14.5); Segmented Neutrophils % 78.8 %
[2018-04-23 17:34] LABS: Hemoglobin 11.9 g/dL (11.5-15.4)
[2018-04-23 17:37] LABS: INR 1.2; Prothrombin Time 13.6 Seconds (9.4-12.1)
[2018-04-23 17:51] LABS: Albumin 3.9 g/dL (3.5-5.7); Albumin/Globulin Ratio 1.4 (1.1-2.2); Bilirubin,Direct 0.2 mg/dL (0.0-0.2); Bilirubin,Indirect 0.6 mg/dL (0.0-1.2); Bilirubin,Total 0.8 mg/dL (0.3-1.0); Globulin 2.7 g/dL (2.4-3.5); Total Protein 6.6 g/dL (6.4-8.9)
[2018-04-23 17:53] LABS: BUN/Creatinine Ratio 32 (6-26); Blood Urea Nitrogen 34 mg/dL (8-23); Calcium 7.7 mg/dL (8.6-10.3); Carbon Dioxide 27 mEq/L (23-29); Chloride 103 mEq/L (98-107); Glucose 126 mg/dL (70-105); Lipase 16 Units/L (11-82); Magnesium 2.3 mg/dL (1.6-2.6); Osmolality,Calculated 297 (280-300); Potassium 3.1 mEq/L (3.5-5.1); Sodium 139 mEq/L (136-145); Troponin I < 0.03 ng/mL (< 0.04); eGFR For Non-African Americans 52 (> 60)
[2018-04-23] MEDS ORDERED: Potassium Chloride Elixir 20 MEQ/15 ML UDC PO ONE (17:54)
[2018-04-23] MEDS ORDERED: *HR* HYDROcodone/Acet 5/325 mg TABLET PO ONE (18:04)
[2018-04-23] MEDS ORDERED: Naloxone 0.4 MG/ML INJ IVP PRN (18:38)
[2018-04-23] MEDS ORDERED: Dextrose Gel 15 GM/37.5 ML TUBE PO PRN ×2 (18:42)
[2018-04-23] MEDS ORDERED: *HR* Dextrose 50 % in Water (Syg) 50 ML SYRINGE IVP PRN (18:42)
[2018-04-23] MEDS ORDERED: D5% in Water 1,000 ML IVC PRN (18:42)
[2018-04-23] MEDS ORDERED: Albuterol 2.5 MG/3 ML NEBULIZER IH PRN (18:44)
[2018-04-23] MEDS ORDERED: CloNIDine Patch 0.1 MG PATCH (WEEKLY) TD SCH (18:45)
[2018-04-23] MEDS ORDERED: *HR* Promethazine 25 MG/ML VIAL IVP PRN (18:46)
--- NOTE | 2018-04-23 18:54 | Internal Med History&Physical ---
Date of Encounter: 04/23/18 Time of Encounter: 18:49 Internal Medicine - H&P: HPI Chief complaint: nausea and vomiting Plans for Post Hospital Care: Home (s) History of present illness: Ms. Nelson is a 73 year old female PMH significant for chronic nausea (on a scopolamine patch), HFpEF, CAD, multiples [place], HLD, HTN, Seizures, dementia and asthma. Patient was brought to the ED from [facility] due to nausea and vomiting. patient reports that she normally feels nauseated and has a scopolamine patch for it but that for the past 4 four days due to worsening nausea associated with multiples episodes of non bilious, non bloody vomiting she has been unable to tolerate anything orally. She denies chest pain, but reports that the last time she was diagnosed with a heart attack she did not have chest pain. denies abdominal pain, and chills, but reports that she was told that she was running low grade fever at [facility]. Denies changes in her bowel or urinary habits. Past Med Surg Social Fam HX - Past Medical History Medical history: asthma, CHF, coronary artery disease, dementia, hyperlipidemia , hypertension, migraine, myocardial infarction, osteoporosis, renal disease, seizures, SVT, other Additional medical history: RLS Psychiatric history: anxiety, depression - Past Surgical History Surgical History: angioplasty/stent, cholecystectomy, hysterectomy, orthopedic, other, other Additional surgical history: BRAIN SURGERY, BACK SURGERY, HIP SURGERY, PIN TO FINGER - Social History Smoking Status: Former smoker Smokeless Tobacco Status: No Alcohol use: none Drug use: none - Family History Father Hx Family Cardiac Disorders: Yes ([place]) Hx Family Cancer: Yes (lung cancer) Mother Adopted: No Family Member Ethnicity: Non- Living Status: Hx Family Cardiac Disorders: Yes Hx Family Respiratory Disorders: Yes Hx Family Cancer: Yes Hx Family GI Disorders: Yes Hx Family Endocrine Disorder: No Hx Family Neuromuscular Disorders: No Hx Family Neurologic Disorders: No Hx Family HEENT Disorders: No Hx Family Autoimmune Disorders: No Internal Medicine - H&P: Meds Atorvastatin [Lipitor] 20 mg PO HS 05/06/15 [History] Ropinirole HCl [Requip] 2 mg PO HS 05/06/15 [History] Cyanocobalamin (B-12) [Vitamin B12] 1,000 mcg IM QMONTH 11/13/15 [History] Potassium Chloride [K-Tab ER] 10 - 20 meq PO DAILY 11/13/15 [History] Scopolamine Patch [Transderm-Scop] 1.5 mg TD Q72H 11/13/15 [History] LevETIRAcetam [Keppra Xr] 1,000 mg PO HS 04/29/16 [History] Zolpidem Tartrate [Ambien Cr] 12.5 mg PO HS PRN 04/29/16 [History] Nitroglycerin 1 - 2 spr PO ONCE PRN 07/01/16 [History] SUMAtriptan succinate [Imitrex] 50 mg PO DAILY PRN 07/01/16 [History] FLUoxetine HCl [Fluoxetine HCl] 40 mg PO QAM 07/27/16 [History] Fluticasone Propionate [Flovent Hfa] 2 puff IH BID 07/27/16 [History] Dronabinol [Marinol] 10 mg PO BID #8 capsule 07/30/16 [Rx] Nystatin Cream [Mycostatin Cream] 1 appl TP BID PRN 09/27/16 [History] Promethazine [Phenergan] 50 mg RC Q6HR PRN 09/27/16 [History] Spironolactone [Aldactone] 25 mg PO TID 10/26/17 [History] cloNIDine HCl [CloNIDine HCl] 0.1 mg PO DAILY PRN 10/26/17 [History] Raloxifene [Evista] 60 mg PO DAILY #90 tablet 03/03/18 [Rx] Enoxaparin [Lovenox] 30 mg SQ Q12HR #20 syr 04/16/18 [Rx] OxyCODONE Immed Rel [Roxicodone 5 MG] 5 mg PO Q6HR PRN 7 Days #28 tablet [Rx] Albuterol Sulfate [Albuterol Inhaler] 2 puff IH Q6H PRN 04/17/18 [History] Betamethasone Dipropionate 1 appl TP DAILY PRN 04/17/18 [History] Clopidogrel [Plavix] 75 mg PO DAILY 04/17/18 [History] Ergocalciferol (VITAMIN D2) [Vitamin D2] 50,000 unit PO MOWETHSA 04/17/18 [ History] Furosemide [Lasix] 40 mg PO BID 04/17/18 [History] OxyCODONE/APAP 5/325 [Percocet 5/325 MG] 1 tab PO Q8HR PRN 04/17/18 [History] 3 Allergy/AdvReac Type Severity Reaction Status Date / Time prednisone Allergy Unknown unknown Verified 10/26/17 09:57 salicylates [Salicylate] Allergy Unknown unknown Verified 10/26/17 09:57 acetaminophen AdvReac Intermediate See Verified 10/26/17 09:57 [From Lily] Comments adhesive AdvReac Unknown Blister Verified 10/26/17 09:57 aspirin AdvReac Unknown bleeding Verified 10/26/17 09:57 divalproex sodium AdvReac Unknown hallucinati Verified 10/26/17 09:57 on metoclopramide AdvReac Unknown Nausea Verified 10/26/17 09:57 ondansetron AdvReac Unknown Nausea Verified 10/26/17 09:57 propoxyphene AdvReac Unknown feeling of Verified 10/26/17 09:57 bugs crawling adhesive tape AdvReac Blister Verified 10/26/17 09:57 ibuprofen AdvReac Nausea Verified 10/26/17 09:57 stool softener AdvReac Unknown Shakiness Uncoded 10/26/17 09:57 All Systems PM: A 10-system review of systems was performed and is negative for pertinent findings except as documented above in the HPI. - Constitutional Constitutional: anorexia, fatigue, fever(s) (subsjective. ), weakness, no excessive sweating, no falls, no weight gain - EENT Eyes: no floaters, no pain Nose, mouth and throat: no dry mouth, no dysphagia, no mouth pain, no odynophagia - Cardiovascular Cardiovascular ROS IM: no chest pain, no dyspnea, no edema, no lightheadedness, no orthopnea, no paroxysmal nocturnal dyspnea - Respiratory Respiratory: no cough, no dyspnea, no wheezing, no snoring, no excessive phlegm production - Gastrointestinal Gastrointestinal: nausea, vomiting, no abdominal pain, no coffee ground emesis, no constipation, no cramping, no dyspepsia, no loose stools - Genitourinary Genitourinary: no dysuria, no hematuria - Musculoskeletal Musculoskeletal ROS IM: no atrophy, no numbness - Integumentary Integumentary IM: no rash - Neurological Neurological ROS: weakness, no headache(s), no tremor(s), no vertigo - Endocrine Endocrine IM: no cold intolerance, no deeping of the voice, no fatigue, no flushing - Constitutional Vitals: Temp Pulse Resp BP Pulse Ox 99.2 F 80 20 114/72 100 04/23/18 18:25 04/23/18 17:55 04/23/18 18:25 04/23/18 18:25 04/23/18 17:55 Exam: General: Alert and oriented 4. Mild distress due to nausea and vomiting. Skin: Normal color, no rash, no lesions. HEENT: EOM, pupils equal, round and reactive. Cardiovascular:RRR, Normal S1 & S2, no rubs, murmurs or gallops. No JVD. Lungs: Clear breath sounds auscultation bilaterally, no wheezes or crackles. Abdomen: Soft, non-tender to superficial or deep palpation, no rigidity or guarding. NABS in all 4 quadrants. Extremities: Patient has a med port left upper chest, which is clean and nontender. No deformity, no edema or tenderness in the lower extremities. Neurological: Normal cognition. CN II-XII intact. Rest of the physical exam is non contributory Internal Med - H&P Results - Labs CBC & Chem 7: 04/23/18 15:53 04/23/18 15:53 - Assessment and plan (1) Intractable vomiting with nausea Current Visit: No Status: Resolved Assessment and plan: Plan NPO will advance diet as tolerated D5/0.45%NS at 50 mls/hr for maintenance fluids Started on metoclopramide 10mg/IV Q6HR Ondanzetron 4mg/IV Q4HR PRN abd and pelvic CT done showed no abnormalities Accu-checks Q6HRs as patient NPO Lispro sliding scale Q6HRs Serial trops as patient has a hx of multiple silent [place] Qualifiers: Vomiting type: cyclical vomiting Qualified Code(s): G43.A1 - Cyclical vomiting, intractable (2) Hypokalemia Current Visit: Yes Status: Acute Assessment and plan: Possible due to GI lost due to vomiting. electrolyte replaced. F/U AM BMP (3) Leukocytosis Current Visit: Yes Status: Acute Assessment and plan: Possible reactive due to persistent nausea and vomiting. No signs of active infection. Plan Port chest x-ray, UA, rapid flu test. Qualifiers: Leukocytosis type: unspecified Qualified Code(s): D72.829 - Elevated white blood cell count, unspecified (4) CAD (coronary artery disease) Current Visit: Yes Status: Acute Assessment and plan: Patient has a Hx of multiple silent [place]. Will continue Plavix 75mg/PO dialy patient not on aspirin due to allergies. Qualifiers: Qualified Code(s): I25.10 - Atherosclerotic heart disease of [place] coronary artery without angina pectoris (5) Asthma Current Visit: No Status: Chronic Assessment and plan: NO wheezing on auscultation. Plan Nebs PRN Qualifiers: Asthma severity: unspecified severity Asthma persistence: intermittent Asthma complication type: uncomplicated Qualified Code(s): J45.20 - Mild intermittent asthma, uncomplicated (6) Heart failure with preserved ejection fraction Current Visit: No Status: Chronic Assessment and plan: No on exacerbation. Plan Strict intake and output daily weight (7) Hypertension Current Visit: No Status: Chronic Assessment and plan: Plan Will continue patient home antihypertensive medications. Qualifiers: Hypertension type: essential hypertension Qualified Code(s): I10 - Essential (primary) hypertension (8) DVT prophylaxis Current Visit: Yes Status: Acute Assessment and plan: Started on Heparin 5000 units SubQ Q12HR (9) Seizure disorder Current Visit: No Status: Chronic Assessment and plan: Patient on Keppra. Will continue home medication. - Time Spent With Patient Total time spent is greater than 50% in coordination of care (as documented) at patient's floor/unit and/or counseling patient: Greater than 35 minutes
[2018-04-23] MEDS: *HR* Heparin 5,000 UNIT/ML VIAL SQ SCH (21:14)
[2018-04-23] MEDS: D5% in 0.45% NACL 1,000 ML IVC SCH (21:14)
[2018-04-23] MEDS ORDERED: *HR* Promethazine 25 MG/ML VIAL IM ONE (21:23)
[2018-04-23] MEDS: *HR* HYDROcodone/Acet 5/325 mg TABLET PO PRN (22:01)
[2018-04-24] MEDS ORDERED: Metoclopramide 10 MG/2 ML VIAL IVP SCH
[2018-04-24] MEDS ORDERED: Ondansetron 4 MG/2 ML VIAL IVP SCH
[2018-04-24] MEDS: Insulin LISPRO 300 UNITS/3 ML VIAL SQ SCH ×4 (03:43→17:27)
[2018-04-24] MEDS ORDERED: Promethazine 12.5 MG in 0.9 % Sodium Chloride 50 ML IVPB PRN (03:51)
[2018-04-24] MEDS: *HR* HYDROcodone/Acet 5/325 mg TABLET PO PRN ×3 (04:11→21:51)
[2018-04-24] MEDS: *HR* Promethazine 25 MG/ML VIAL IV PRN ×3 (04:11→17:12)
[2018-04-24] MEDS: levETIRAcetam 250 MG TABLET PO SCH ×2 (06:37→17:12)
[2018-04-24] MEDS: *HR* Heparin 5,000 UNIT/ML VIAL SQ SCH ×3 (06:37→21:51)
[2018-04-24 07:19] LABS: Basophils % 0.2 %; Eosinophils # 0.1 K/mcL (0.0-0.6); Eosinophils % 0.7 %; Hematocrit 33.1 % (35.3-44.9); Hemoglobin 11.2 g/dL (11.5-15.4); Immature Granulocytes % 0.9 % (0-4); Lymphocytes # 1.8 K/mcL (0.6-4.6); Mean Corpuscular HGB Conc 33.8 g/dL (31.6-35.5); Mean Corpuscular Hemoglobin 29.4 pg (28.0-33.3); Mean Corpuscular Volume 86.9 fL (83.0-100.0); Mean Platelet Volume 10.2 fL (9.4-12.4); Monocytes # 0.8 K/mcL (0.0-1.3); Monocytes % 6.9 %; Neutrophils # 9.3 K/mcL (1.6-8.9); Platelet Count 323 K/mcL (140-400); Red Blood Count 3.81 M/mcL (3.82-4.97); Red Cell Distribution Width 12.5 % (11.5-14.5); Segmented Neutrophils % 76.3 %
[2018-04-24 07:58] LABS: BUN/Creatinine Ratio 41 (6-26); Blood Urea Nitrogen 36 mg/dL (8-23); Calcium 7.5 mg/dL (8.6-10.3); Carbon Dioxide 27 mEq/L (23-29); Chloride 107 mEq/L (98-107); Glucose 115 mg/dL (70-105); Magnesium 2.5 mg/dL (1.6-2.6); Osmolality,Calculated 297 (280-300); Phosphorous 1.3 mg/dL (2.7-4.5); Sodium 139 mEq/L (136-145); eGFR For Non-African Americans > 60 (> 60)
[2018-04-24] MEDS: Spironolactone 25 MG TABLET PO SCH (10:54)
[2018-04-24] MEDS: FLUoxetine 20 MG CAPSULE PO SCH (10:54)
--- NOTE | 2018-04-24 14:26 | Internal Med Progress Note ---
Hospitalist Progress Note - Encounter Date of Encounter: 04/24/18 Time of Encounter: 14:24 - Subjective Interval History: Patient seen and evaluated at beside, report significant improvement from yesterday. reports that she is still nauseated (which is chronic) but has not had any vomiting episode. Denies chest pain or abdominal pain. - Exam Vitals: Temp Pulse Resp BP Pulse Ox 98.7 F 72 15 101/69 96 04/24/18 11:34 04/24/18 11:34 04/24/18 11:34 04/24/18 11:34 04/24/18 11:34 Exam: General: Alert and oriented 4. No acute distress. Cardiovascular: RRR, Normal S1 & S2, no rubs, murmurs or gallops. JVD about 6cm. Lungs: Clear breath sounds auscultation bilaterally, no wheezes or crackles. Abdomen: Soft, non-tender, no rigidity or guarding. NABS in all 4 quadrants. Extremities: Patient has a med port left upper chest, which is clean and nontender. No deformity, no edema or tenderness in the lower extremities. strenght 5/5 in the upper and lower extremities. Neurological: Normal cognition. CN II-XII intact. Rest of the physical exam is non contributory - Assessment and Plan (1) Intractable vomiting with nausea Current Visit: No Status: Resolved Assessment and Plan: Plan: continue promethazine 12.5mg/IV Q6HR PRN for nausea advance diet as tolerated decrease IV fluid to 50mls/hr, will discontinue fluids when patient tolerating diet (2) Leukocytosis Current Visit: Yes Status: Acute Assessment and Plan: No clear source of infection. possible reactive from the nausea and vomiting. R/ O flu, Rapid flu test pending. (3) CAD (coronary artery disease) Current Visit: Yes Status: Acute Assessment and Plan: Patient on Plavix as she is allergic to aspirin (4) Asthma Current Visit: No Status: Chronic Assessment and Plan: On albuterol nebs PRN for wheezing. (5) Heart failure with preserved ejection fraction Current Visit: No Status: Chronic Assessment and Plan: No signs of acute CHF exacerbation. Plan Will re-start patient on furosemide 40mg/PO daily continue spironolactone 25mg/PO dialy. strict intake and output, plus daily weight. (6) Hypertension Current Visit: No Status: Chronic Assessment and Plan: BP well controlled. Patient on her home medications. On clonidine 0.1mg Patch. (7) DVT prophylaxis Current Visit: Yes Status: Acute Assessment and Plan: Continue Heparin 5000 unit SUbQ BID for DVT prophylaxis. (8) Seizure disorder Current Visit: No Status: Chronic Assessment and Plan: Continue Keppra 500mg/PO Q12HRs - Summary of Assessment and Plan Summary of Assessment and Plan: Patient to remain in the hospital for 24 hours. Potential DC tomorrow if tolerates PO diet today. - Time Spent with Patient Total time spent is greater than 50% in coordination of care (as documented) at patient's floor/unit and/or counseling patient: Greater than 35 minutes Plan of Care Discussed with: patient (the nurse.) Internal Medicine: Result - Labs CBC & Chem 7: 04/24/18 04:00 04/24/18 04:00 Labs: Short CBC 04/24/18 Range/Units 04:00 WBC 12.2 H (4.3-11.1) K/mcL Hgb 11.2 L (11.5-15.4) g/dL Hct 33.1 L (35.3-44.9) % Plt Count 323 (140-400) K/mcL Neutrophils # 9.3 H (1.6-8.9) K/mcL BMP 04/24/18 04:00 Sodium 139 Potassium 4.0 D Chloride 107 Carbon Dioxide 27 BUN 36 H Creatinine 0.88 Glucose 115 H Calcium 7.5 L Cardiac Enzymes 04/23/18 04/24/18 Range/Units 22:00 06:50 Troponin I < 0.03 < 0.03 (< 0.04) ng/mL - ABG Interpretation ABG results: PT/INR, D-dimer PT 13.6 Seconds (9.4-12.1) H 04/23/18 15:43 Consult Discharge Plan - Plan Referrals: Noé Skinner MD [Primary Care Provider] - (1) Intractable vomiting with nausea Qualifiers: Vomiting type: cyclical vomiting Qualified Code(s): G43.A1 - Cyclical vomiting, intractable (2) Leukocytosis Qualifiers: Leukocytosis type: unspecified Qualified Code(s): D72.829 - Elevated white blood cell count, unspecified (3) CAD (coronary artery disease) Qualifiers: Coronary Disease-Associated Artery/Lesion type: unspecified vessel or lesion type Associated angina: angina presence unspecified (4) Asthma Qualifiers: Asthma severity: unspecified severity Asthma persistence: intermittent Asthma complication type: uncomplicated Qualified Code(s): J45.20 - Mild intermittent asthma, uncomplicated (6) Hypertension Qualifiers: Hypertension type: essential hypertension Qualified Code(s): I10 - Essential (primary) hypertension
--- NOTE | 2018-04-24 17:17 | Electrocardiograph Report ---
[address] [place] [address] Test Date: 2018-04-23 Pat Name: Mayte Nelson Department: EXAM2 Room: 3B35 Gender: F Case Reviewer: : 1945 Requested By: Edgar Puga Order Number: [id number] Reading MD: Sonia Espinoza Measurements Intervals [place] Rate: 95 P: 43 RI: 141 QRS: 10 QRSD: 97 T: -22 QT: 381 QTc: 479 Interpretive Statements Sinus rhythm Abnrm T, consider ischemia, anterolateral lds Electronically Signed On 04-24-2018 17:15:34 EDT by Sonia Espinoza
[2018-04-24] MEDS: D5% in 0.45% NACL 1,000 ML IVC SCH ×3 (17:18→20:00)
[2018-04-25] MEDS: Insulin LISPRO 300 UNITS/3 ML VIAL SQ SCH ×3 (01:04→12:00)
[2018-04-25] MEDS: *HR* Heparin 5,000 UNIT/ML VIAL SQ SCH ×2 (05:25→13:34)
[2018-04-25] MEDS: levETIRAcetam 250 MG TABLET PO SCH (05:29)
[2018-04-25] MEDS ORDERED: Furosemide 40 MG TABLET PO SCH (09:00)
[2018-04-25] MEDS: Spironolactone 25 MG TABLET PO SCH (09:36)
[2018-04-25] MEDS: FLUoxetine 20 MG CAPSULE PO SCH (09:36)
[2018-04-25] MEDS: *HR* HYDROcodone/Acet 5/325 mg TABLET PO PRN ×2 (09:36→16:04)
--- NOTE | 2018-04-25 09:55 | Physician Discharge Referral ---
ExtendedCare Referral Info Transfer To: [facility] Provider in Charge after Transfer: PCP Institutional Level of Care: Skilled Prognosis: Good Aware of Diagnosis: Patient - Transfer Medications Home Medications: Atorvastatin [Lipitor] 20 mg PO HS 05/06/15 [History] Ropinirole HCl [Requip] 2 mg PO HS 05/06/15 [History] Cyanocobalamin (B-12) [Vitamin B12] 1,000 mcg IM QMONTH 11/13/15 [History] Potassium Chloride [K-Tab ER] 10 - 20 meq PO DAILY 11/13/15 [History] Scopolamine Patch [Transderm-Scop] 1.5 mg TD Q72H 11/13/15 [History] LevETIRAcetam [Keppra Xr] 1,000 mg PO HS 04/29/16 [History] Zolpidem Tartrate [Ambien Cr] 12.5 mg PO HS PRN 04/29/16 [History] Nitroglycerin 1 - 2 spr PO ONCE PRN 07/01/16 [History] SUMAtriptan succinate [Imitrex] 50 mg PO DAILY PRN 07/01/16 [History] FLUoxetine HCl [Fluoxetine HCl] 40 mg PO QAM 07/27/16 [History] Fluticasone Propionate [Flovent Hfa] 2 puff IH BID 07/27/16 [History] Dronabinol [Marinol] 10 mg PO BID #8 capsule 07/30/16 [Rx] Nystatin Cream [Mycostatin Cream] 1 appl TP BID PRN 09/27/16 [History] Promethazine [Phenergan] 50 mg RC Q6HR PRN 09/27/16 [History] Spironolactone [Aldactone] 25 mg PO TID 10/26/17 [History] cloNIDine HCl [CloNIDine HCl] 0.1 mg PO DAILY PRN 10/26/17 [History] Raloxifene [Evista] 60 mg PO DAILY #90 tablet 03/03/18 [Rx] Enoxaparin [Lovenox] 30 mg SQ Q12HR #20 syr 04/16/18 [Rx] Albuterol Sulfate [Albuterol Inhaler] 2 puff IH Q6H PRN 04/17/18 [History] Betamethasone Dipropionate 1 appl TP DAILY PRN 04/17/18 [History] Clopidogrel [Plavix] 75 mg PO DAILY 04/17/18 [History] Ergocalciferol (VITAMIN D2) [Vitamin D2] 50,000 unit PO MOWETHSA 04/17/18 [ History] Furosemide [Lasix] 40 mg PO BID 04/17/18 [History] OxyCODONE/APAP 5/325 [Percocet 5/325 MG] 1 tab PO Q8HR PRN 04/17/18 [History] Allergies/Adverse Reactions: 3 Allergy/AdvReac Type Severity Reaction Status Date / Time prednisone Allergy Unknown unknown Verified 10/26/17 09:57 salicylates [Salicylate] Allergy Unknown unknown Verified 10/26/17 09:57 acetaminophen AdvReac Intermediate See Verified 10/26/17 09:57 [From Lily] Comments adhesive AdvReac Unknown Blister Verified 10/26/17 09:57 aspirin AdvReac Unknown bleeding Verified 10/26/17 09:57 divalproex sodium AdvReac Unknown hallucinati Verified 10/26/17 09:57 on metoclopramide AdvReac Unknown Nausea Verified 10/26/17 09:57 ondansetron AdvReac Unknown Nausea Verified 10/26/17 09:57 propoxyphene AdvReac Unknown feeling of Verified 10/26/17 09:57 bugs crawling adhesive tape AdvReac Blister Verified 10/26/17 09:57 ibuprofen AdvReac Nausea Verified 10/26/17 09:57 stool softener AdvReac Unknown Shakiness Uncoded 10/26/17 09:57 - Respiratory Orders Oxygen / L per min Smoking Cessation: Smoking cessation has been advised. For more information, call the [place] Tobacco Quit Line at 7-848-XGRH-NOW. - Lab Orders Lab Orders: CBC, Shaq 17 - Ancillary Orders May use pressure relief devices daily prn, May go on YOANDY w/family/respon constitution party w /meds at nurse discretion PRN, May consult with Dentist, Door And Arrival Attendant, Paint Brush Maker PRN - Advance Directives Code Status: Full Code CERTIFICATION: I certify that the transfer of the above named patient to an Extended Care Facility is necessary for the continuing treatment of the diagnosis listed. The above information is true and accurate reflection of patient's current condition. Confidential - Redisclosure prohibited without a patient's written consent.
--- NOTE | 2018-04-25 09:58 | Discharge Summary ---
- NOTES TO OUTPATIENT PROVIDER Notes to Outpatient Provider: Pt will need repeat BMP in 2-3 days to monitor calcium and potassium. Date of Encounter: 04/25/18 Time of Encounter: 09:30 - Discharge Diagnosis (1) Intractable vomiting with nausea Priority: Primary Status: Resolved Assessment and Plan: Resolved. Pt states that she has normal baseline nausea since she was a child. Pt is tolerating food and fluid well. Phenergan 12.5mg po before meals daily. Qualifiers: Vomiting type: cyclical vomiting Qualified Code(s): G43.A1 - Cyclical vomiting, intractable (2) Seizure disorder Priority: Secondary Status: Chronic Assessment and Plan: Chronic. Continue Keppra 500mg/PO Q12HRs (3) Hypertension Priority: Secondary Status: Chronic Assessment and Plan: BP well controlled. Continue home medications. Qualifiers: Hypertension type: essential hypertension Qualified Code(s): I10 - Essential (primary) hypertension (4) Heart failure with preserved ejection fraction Priority: Secondary Status: Chronic Assessment and Plan: No acute exacerbation. pt is euvolemic. Lungs clear, no peripheral edema. Continue Spionolactone 25mg po daily and Lasix 40mg po daily. (5) Asthma Priority: Secondary Status: Chronic Assessment and Plan: Continue Flovent and Albuterol inhalers at home. Qualifiers: Asthma severity: unspecified severity Asthma persistence: intermittent Asthma complication type: uncomplicated Qualified Code(s): J45.20 - Mild intermittent asthma, uncomplicated (6) Leukocytosis Priority: Secondary Status: Acute Assessment and Plan: No clear source of infection. possible reactive from the nausea and vomiting. Respiratory infectious panel negative. No fever or tachycardia. No signs of SIRS. Qualifiers: Leukocytosis type: unspecified Qualified Code(s): D72.829 - Elevated white blood cell count, unspecified (7) CAD (coronary artery disease) Priority: Secondary Status: Chronic Assessment and Plan: Chronic. Pt denies chest pain. Continue Plavix and Lipitor. Qualifiers: Coronary Disease-Associated Artery/Lesion type: unspecified vessel or lesion type Associated angina: angina presence unspecified Qualified Code(s): I25.10 - Atherosclerotic heart disease of al[place]q coronary artery without angina pectoris (8) DVT prophylaxis Priority: Secondary Status: Acute Assessment and Plan: Continue Heparin 5000 unit SUbQ BID for DVT prophylaxis. Pt with recent total hip replacement. (9) Hypocalcemia Priority: Secondary Status: Acute Assessment and Plan: Unclear etiology. pt given Calcium gluconate 2g IV prior to discharge. Repeat BMP in 2-3 days. (10) Hypokalemia Priority: Secondary Status: Acute Assessment and Plan: Pt on Aldactone, given supplement 40meq po x 1 and will send rx for home. Repeat BMP in 2-3 days. Hospital course: Please see assessment and plan for hospital course. Discharge discussed with: patient - Time Spent with Patient Total time spent providing and/or coordinating discharge services: Less than 30 minutes - Discharge Medications Prescriptions: Promethazine [Phenergan] 12.5 mg PO Q8HR #6 tablet Potassium Chloride 10 meq PO BIDWM #6 tab.er.prt Home Medications: Atorvastatin [Lipitor] 20 mg PO HS 05/06/15 [History] Ropinirole HCl [Requip] 2 mg PO HS 05/06/15 [History] Cyanocobalamin (B-12) [Vitamin B12] 1,000 mcg IM QMONTH 11/13/15 [History] Potassium Chloride [K-Tab ER] 10 - 20 meq PO DAILY 11/13/15 [History] Scopolamine Patch [Transderm-Scop] 1.5 mg TD Q72H 11/13/15 [History] LevETIRAcetam [Keppra Xr] 1,000 mg PO HS 04/29/16 [History] Zolpidem Tartrate [Ambien Cr] 12.5 mg PO HS PRN 04/29/16 [History] Nitroglycerin 1 - 2 spr PO ONCE PRN 07/01/16 [History] SUMAtriptan succinate [Imitrex] 50 mg PO DAILY PRN 07/01/16 [History] FLUoxetine HCl [Fluoxetine HCl] 40 mg PO QAM 07/27/16 [History] Fluticasone Propionate [Flovent Hfa] 2 puff IH BID 07/27/16 [History] Dronabinol [Marinol] 10 mg PO BID #8 capsule 07/30/16 [Rx] Nystatin Cream [Mycostatin Cream] 1 appl TP BID PRN 09/27/16 [History] Promethazine [Phenergan] 50 mg RC Q6HR PRN 09/27/16 [History] Spironolactone [Aldactone] 25 mg PO TID 03/28/18 [History] cloNIDine HCl [CloNIDine HCl] 0.1 mg PO DAILY PRN 10/26/17 [History] Raloxifene [Evista] 60 mg PO DAILY #90 tablet 03/03/18 [Rx] Enoxaparin [Lovenox] 30 mg SQ Q12HR #20 syr 04/16/18 [Rx] Albuterol Sulfate [Albuterol Inhaler] 2 puff IH Q6H PRN 04/17/18 [History] Betamethasone Dipropionate 1 appl TP DAILY PRN 04/17/18 [History] Clopidogrel [Plavix] 75 mg PO DAILY 04/17/18 [History] Ergocalciferol (VITAMIN D2) [Vitamin D2] 50,000 unit PO MOWETHSA 04/17/18 [ History] Furosemide [Lasix] 40 mg PO BID 04/17/18 [History] OxyCODONE/APAP 5/325 [Percocet 5/325 MG] 1 tab PO Q8HR PRN 04/17/18 [History] Potassium Chloride 10 meq PO BIDWM #6 tab.er.prt 04/25/18 [Rx] Promethazine [Phenergan] 12.5 mg PO Q8HR #6 tablet 04/25/18 [Rx] Allergies/Adverse Reactions: 3 Allergy/AdvReac Type Severity Reaction Status Date / Time prednisone Allergy Unknown unknown Verified 10/26/17 09:57 salicylates [Salicylate] Allergy Unknown unknown Verified 10/26/17 09:57 acetaminophen AdvReac Intermediate See Verified 10/26/17 09:57 [From Lily] Comments adhesive AdvReac Unknown Blister Verified 10/26/17 09:57 aspirin AdvReac Unknown bleeding Verified 10/26/17 09:57 divalproex sodium AdvReac Unknown hallucinati Verified 10/26/17 09:57 on metoclopramide AdvReac Unknown Nausea Verified 10/26/17 09:57 ondansetron AdvReac Unknown Nausea Verified 10/26/17 09:57 propoxyphene AdvReac Unknown feeling of Verified 10/26/17 09:57 bugs crawling adhesive tape AdvReac Blister Verified 10/26/17 09:57 ibuprofen AdvReac Nausea Verified 10/26/17 09:57 stool softener AdvReac Unknown Shakiness Uncoded 10/26/17 09:57 Date of admission: 04/23/18 18:12 Primary care physician: Noé Skinner MD Consults: 04/24/18 09:44 Consult to Investigator Welfare [CONS] Routine Reason for SW Consult: PATIENT FROM TRADITIONS Discharging clinician: Ana Paula Elena Anticipated date of discharge: 04/25/18 - Constitutional Vitals: Temp Pulse Resp BP Pulse Ox 99.1 F 67 16 98/63 96 04/25/18 07:00 04/25/18 07:00 04/25/18 07:00 04/25/18 07:00 04/25/18 03:39 General appearance: Present: cooperative, A&O X 3, pleasant, no acute distress, answers questions appropriately Exam: above - Head Head exam: Present: atraumatic, normal inspection, normocephalic - Eye Eye exam: Present: normal appearance, conjuntiva pink, sclera anicteric - Neck Neck exam general surgery: Present: supple, trachea midline. Absent: lymphadenopathy, tenderness - Respiratory Respiratory exam: Present: CTAB. Absent: accessory muscle use, chest wall tenderness, rales, respiratory distress, rhonchi, wheezes - Cardiovascular Cardiovascular exam: Present: RRR, +S1, +S2. Absent: diastolic murmur, gallop, rubs, systolic murmur - GI/Abdominal GI/Abdominal exam: Present: normal bowel sounds, soft. Absent: distended, hepatomegaly, tenderness - Extremities Exam Extremities exam: Present: normal inspection, warm, radial pulses palpable and symmetrical. Absent: calf tenderness, cyanotic, pedal edema, tenderness - Neurological Exam Neurological exam: Present: alert, oriented X3, no focal deficits. Absent: facial droop, speech deficit - Skin Skin exam: Present: dry, intact, normal color, warm. Absent: rash - Patient Status Disposition: Transfer SNF Condition: Fair Functional capacity at discharge: uses cane/walker Overall status at discharge: patient is back to baseline - Discharge Instructions Follow Up With: Noé Skinner MD [Primary Care Provider] - Additional Instructions: Please follow up with ECF provider as scheduled. Return to the ER for any other problems or concerns, or if your symptoms return or worsen. - Diet and Activity Activity: as per physical therapy Diet: advance to your usual diet
[2018-04-25 10:51] LABS: Basophils # 0.1 K/mcL (0.0-0.2); Basophils % 0.6 %; Eosinophils # 0.6 K/mcL (0.0-0.6); Eosinophils % 5.3 %; Hematocrit 32.1 % (35.3-44.9); Hemoglobin 10.8 g/dL (11.5-15.4); Immature Granulocytes % 0.9 % (0-4); Lymphocytes # 2.1 K/mcL (0.6-4.6); Lymphocytes % 18.2 %; Mean Corpuscular HGB Conc 33.6 g/dL (31.6-35.5); Mean Corpuscular Hemoglobin 29.2 pg (28.0-33.3); Mean Corpuscular Volume 86.8 fL (83.0-100.0); Mean Platelet Volume 10.2 fL (9.4-12.4); Monocytes # 0.7 K/mcL (0.0-1.3); Monocytes % 6.1 %; Neutrophils # 8.1 K/mcL (1.6-8.9); Platelet Count 309 K/mcL (140-400); Red Cell Distribution Width 12.6 % (11.5-14.5); Segmented Neutrophils % 68.9 %
[2018-04-25] MEDS: *HR* Promethazine 25 MG/ML VIAL IV PRN ×2 (10:52→16:04)
[2018-04-25 11:14] LABS: Troponin I < 0.03 ng/mL (< 0.04)
[2018-04-25 11:29] LABS: BUN/Creatinine Ratio 34 (6-26); Blood Urea Nitrogen 31 mg/dL (8-23); Calcium 7.2 mg/dL (8.6-10.3); Carbon Dioxide 24 mEq/L (23-29); Chloride 106 mEq/L (98-107); Glucose 97 mg/dL (70-105); Osmolality,Calculated 290 (280-300); Sodium 137 mEq/L (136-145); eGFR For Non-African Americans > 60 (> 60)
[2018-04-25] MEDS ORDERED: Calcium Gluconate 2,000 MG in 0.9 % Sodium Chloride 100 ML IVPB ONE (12:31)
[2018-04-25 13:47] LABS: Adenovirus Not Detected (Not Detect); Bordetella Pertussis Not Detected (Not Detect); Chlamydophila pneumoniae Not Detected (Not Detect); Coronavirus 229E Not Detected (Not Detect); Coronavirus HKU1 Not Detected (Not Detect); Coronavirus NL63 Not Detected (Not Detect); Coronavirus OC43 Not Detected (Not Detect); Human Metapneumovirus Not Detected (Not Detect); Human Rhinovirus/Enterovirus Not Detected (Not Detect); Influenza A Subtype 2009 H1 Not Detected (Not Detect); Influenza A Untypeable Not Detected (Not Detect); Influenza B Not Detected (Not Detect); Mycoplasma pneumoniae Not Detected (Not Detect); Parainfluenza Virus 1 Not Detected (Not Detect); Parainfluenza Virus 2 Not Detected (Not Detect); Parainfluenza Virus 3 Not Detected (Not Detect); Parainfluenza Virus 4 Not Detected (Not Detect); Respiratory Syncytial Virus Not Detected (Not Detect)
[2018-04-25 15:32] VITALS: BP 96/65
== END 2018-04-25 19:03 ==
LOC: EMEROOARM 15:28 → 3BNU 15:28
PROVIDERS: ADMIT Internal Medicine; ATTEND Internal Medicine

== ENCOUNTER 2019-01-19 16:09 | Inpatient (IN) ==
[2019-01-19] MEDS ORDERED: *HR* Promethazine 25 MG/ML VIAL IVP ONE ×2 (17:08→18:59)
[2019-01-19] MEDS ORDERED: Isovue-370 500 ML BOTTLE IVP ONE (17:09)
[2019-01-19 17:55] LABS: Albumin 4.7 g/dL (3.5-5.7); Albumin/Globulin Ratio 1.7 (1.1-2.2); Bilirubin,Direct 0.2 mg/dL (0.0-0.2); Bilirubin,Indirect 0.8 mg/dL (0.0-1.2); Calcium 9.5 mg/dL (8.6-10.3); Globulin 2.7 g/dL (2.4-3.5); Magnesium 2.2 mg/dL (1.6-2.6); Total Protein 7.4 g/dL (6.4-8.9)
--- NOTE | 2019-01-19 18:20 | Emergency Department Note ---
Disposition Clinical Impression: Acute kidney injury, Hypokalemia Nausea & vomiting Qualifiers: Vomiting type: unspecified Vomiting Intractability: intractable Qualified Code(s): R11.2 - Nausea with vomiting, unspecified Constipation Qualifiers: Constipation type: unspecified constipation type Qualified Code(s): K59.00 - Constipation, unspecified Disposition: Admitted As Inpatient Referrals: Noé Skinner MD [Primary Care Provider] - Forms: ED Satisfaction Letter Time of Disposition: 21:13 General Adult HPI - General Chief complaint: ED Nausea/Vomiting/Diarrhea Stated complaint: N/V Time Seen by Provider: 01/19/19 16:14 Source: patient, EMS Limitations: no limitations Nursing Notes Reviewed: Yes Vital Signs Reviewed: Yes - History of Present Illness HPI Narrative: 73-year-old female who presents emergency department with complaint of nausea, vomiting which started this morning. The patient states this is been ongoing for greater than 12 hours and she has had a "dry heaves "but has not actually vomited area she denies any significant abdominal pain but just states that she "feels sick". She denies any other symptoms at this time but is not a great historian as she continually just states she is "sick". Pain Scale: 0 - Related Data Home Medications Medication Instructions Recorded Confirmed Ropinirole HCl [Requip] 2 mg PO HS 05/06/15 01/11/19 Cyanocobalamin (B-12) [Vitamin B12] 1,000 mcg IM QMONTH 11/13/15 01/11/19 Potassium Chloride [K-Tab ER] 10 - 20 meq PO DAILY 11/13/15 01/11/19 Scopolamine Patch [Transderm-Scop] 1.5 mg TD Q72H PRN 11/13/15 01/11/19 LevETIRAcetam [Keppra Xr] 1,000 mg PO HS 04/29/16 01/11/19 Zolpidem Tartrate [Ambien Cr] 12.5 mg PO HS 04/29/16 01/11/19 SUMAtriptan succinate [Imitrex] 50 mg PO DAILY PRN 07/01/16 01/11/19 FLUoxetine HCl [Fluoxetine HCl] 40 mg PO QAM 07/27/16 01/11/19 Fluticasone Propionate [Flovent 2 puff IH BID 07/27/16 01/11/19 Hfa] Promethazine [Phenergan] 50 mg RC Q6HR PRN 09/27/16 01/11/19 Albuterol Sulfate [Albuterol 2 puff IH Q6H PRN 04/17/18 01/11/19 Inhaler] Clopidogrel [Plavix] 75 mg PO DAILY 04/17/18 01/11/19 Ergocalciferol (VITAMIN D2) 50,000 unit PO FR 04/17/18 01/11/19 [Vitamin D2] Furosemide [Lasix] 40 mg PO BID 04/17/18 01/11/19 Dronabinol 10 mg PO BID 01/11/19 01/11/19 Nitroglycerin 0.3 mg SL AD PRN 01/11/19 01/11/19 Previous Rx's Medication Instructions Recorded Atorvastatin [Lipitor] 40 mg PO HS 30 Days #30 tablet 01/12/19 Metoprolol XL (24 HR) Succ [Toprol 12.5 mg PO DAILY 30 Days #30 01/12/19 Xl] tab.er.24h Spironolactone [Aldactone] 25 mg PO DAILY #0 01/12/19 Allergies Allergy/AdvReac Type Severity Reaction Status Date / Time prednisone Allergy Unknown unknown Verified 10/26/17 09:57 salicylates [Salicylate] Allergy Unknown unknown Verified 10/26/17 09:57 acetaminophen AdvReac Intermediate See Verified 10/26/17 09:57 [From Lily] Comments adhesive AdvReac Unknown Blister Verified 10/26/17 09:57 aspirin AdvReac Unknown bleeding Verified 10/26/17 09:57 divalproex sodium AdvReac Unknown hallucinati Verified 10/26/17 09:57 on metoclopramide AdvReac Unknown Nausea Verified 10/26/17 09:57 ondansetron AdvReac Unknown Nausea Verified 10/26/17 09:57 propoxyphene AdvReac Unknown feeling of Verified 10/26/17 09:57 bugs crawling adhesive tape AdvReac Blister Verified 10/26/17 09:57 ibuprofen AdvReac Nausea Verified 10/26/17 09:57 stool softener AdvReac Unknown Shakiness Uncoded 10/26/17 09:57 Review of Systems: ROS per history of present illness, all other systems reviewed and negative or normal. All systems ED: reviewed and negative except as stated. Review of Systems: As Per HPI Past Medical History - Past Medical History Medical history: Reports: asthma, CHF, coronary artery disease, dementia, h yperlipidemia, hypertension, migraine, myocardial infarction, osteoporosis, renal disease, seizures, SVT, other Surgical history: Reports: angioplasty/stent, cholecystectomy, hysterectomy, orthopedic, other, other Psychiatric history: Reports: anxiety, depression - Social History Smoking Status: Light tobacco smoker Smokeless Tobacco Status: No Alcohol use: Reports: none Drug use: Reports: none Physical Exam General: Conversant. Follow commands. Appears stated age. Neck: No JVD. Trachea midline. Neck supple. Eyes: PERRL. No scleral icterus. HENT: Normocephalic and atraumatic. Slightly dry mucus membranes. Cardiovascular: Regular rate and rhythm. Normal S1 and S2. No murmurs appreciated. Normal capillary refill. Extremities well perfused with 2+ distal pulses bilaterally. No edema. Pulmonary: Normal and equal breath sounds bilaterally, anteriorly and posteriorly. No wheezes, rales, or rhonchi. Not in respiratory distress. Speaks in full sentences. Abdomen: Soft, nondistended. Diffuse generalized tenderness. No rigidity or rebound tenderness. Neuro: Alert and oriented x3. No slurred speech. No focal deficits noted. Skin: No rashes noted on visualized skin. Musculoskeletal: No bony abnormalities visualized. Moves all extremities. Psych: Normal mood. Pleasant. Makes appropriate eye contact. - General Limitations: no limitations General appearance: alert Course - Reevaluation(s) Reevaluation #1: Patient continues to have nausea and vomiting. Will try haldol. Time: 20:22 Vital Signs Temperature 98 F 01/19/19 16:19 Pulse Rate 78 01/19/19 16:19 Respiratory Rate 16 01/19/19 16:19 Blood Pressure 160/72 01/19/19 16:19 O2 Sat by Pulse Oximetry 100 01/19/19 16:19 Temperature 98 F 01/19/19 16:19 Pulse Rate 78 01/19/19 16:19 Respiratory Rate 16 01/19/19 16:19 Blood Pressure 160/72 01/19/19 16:19 O2 Sat by Pulse Oximetry 100 01/19/19 16:19 Oxygen Delivery Oxygen Delivery Room Air Medical Decision Making - [facility] Narrative Medical decision making narrative: 73-year-old female who presents the emergency department with intractable nausea and vomiting. Patient states this all started this morning. On arrival patient's vital signs are stable. She is dry heaving and while she does not have significant abdominal tenderness she does not give a good history as she continues to say that she is "just sick". We did obtain a BMP which shows hypokalemia of 3.0 and acute kidney injury with creatinine elevated to 1.24 above the patient's baseline which is normal. Otherwise the patient has received 1 L fluid bolus as well as multiple rounds of antiemetics including Phenergan, Compazine, repeat dosing of Phenergan as well as Haldol. She has not responded to these significantly. She has multiple allergies to other medications including Zofran and Reglan. CT abdomen/pelvis shows history of gastric bypass with no evidence of inflammation. Distally there is large amount of stool in the sigmoid colon and rectum but unfortunately given the patient's current low GFR this was not with IV contrast therefore could not evaluate effectively possibility of infectious origin of this inflammation. Chest x-ray shows no acute findings. She otherwise does have a T9 compression fracture but she denies any falls or injury. Urinalysis has been unable to be obtained as she continues to have diarrhea while in the emergency department and has not been able to provide an adequate specimen. At this point she continues to have nausea and at this point do not believe she would tolerate a disimpaction though this may be required in the near future. Discussed case with on-call hospitalist Dr. Short who agrees with plan for admission and accepts the patient to the inpatient service. Patient agrees with and understands course of treatment plan including plan for admission. All questions answered. - Medical Records Medical records reviewed: Yes I reviewed the patient's medical records. - Lab Data Lab results reviewed: Yes I reviewed the patient's lab results. Result diagrams: 01/19/19 17:04 Lab Results 01/19/19 Range/Units 17:04 Sodium 138 (136-145) mEq/L Potassium 3.0 L (3.5-5.1) mEq/L Chloride 97 L (98-107) mEq/L Carbon Dioxide 21 L (23-29) mEq/L BUN 25 H (8-23) mg/dL Creatinine 1.24 H (0.60-1.20) mg/dL Est GFR ( Amer) 52 L (> 60) Est GFR (Non-Af Amer) 43 L (> 60) BUN/Creatinine Ratio 20 (6-26) Glucose 249 H (70-105) mg/dL Calculated Osmolality 299 (280-300) Calcium 9.5 (8.6-10.3) mg/dL Magnesium 2.2 (1.6-2.6) mg/dL Total Bilirubin 1.0 (0.3-1.0) mg/dL Direct Bilirubin 0.2 (0.0-0.2) mg/dL Indirect Bilirubin 0.8 (0.0-1.2) mg/dL AST 16 (13-39) Units/L ALT 13 (7-52) Units/L Alkaline Phosphatase 80 (34-104) Units/L Serum Total Protein 7.4 (6.4-8.9) g/dL Albumin 4.7 (3.5-5.7) g/dL Globulin 2.7 (2.4-3.5) g/dL Albumin/Globulin Ratio 1.7 (1.1-2.2) Lipase 16 (11-82) Units/L - Radiology Data Radiology results reviewed: Yes I reviewed the patient's radiology results. Chest X-Ray 01/19/19 16:47 IMPRESSION: Stable chest. No acute cardiopulmonary abnormality. D/ / Lupis Mauricio MD / Lupis Mauricio MD Interpreting Provider: Lupis Mauricio MD Abdomen/Pelvis CT 01/19/19 17:10 IMPRESSION: 1. History of gastric bypass with no evidence of inflammation at the operative site in the upper abdomen. 2. Distally, the small bowel appears normal. There is a large amount of stool within the sigmoid colon and rectum which could indicate underlying constipation or fecal impaction. 3. Limited evaluation of rectal mucosa on this noncontrast study. Questionable mucosal thickening distally. This could represent underlying proctitis. A mass can not be definitively excluded. Recommend correlation with colonoscopy results. 4. Age indeterminate T9 compression fracture. D/ / Kyle Connell MD / Kyle Connell MD Interpreting Provider: Kyle Connell MD - EKG Data EKG #1 EKG attestation: Yes I reviewed and interpreted this EKG. EKG results narrative: Normal sinus rhythm rate of 79. Normal axis. No acute ST or T-wave abnormalities. When compared with prior from 01/11/19 tenderness significant changes.
[2019-01-19] MEDS ORDERED: 0.9 % Sodium Chloride 1,000 ML IVC STA (18:22)
[2019-01-19] MEDS ORDERED: Prochlorperazine 10 MG/2 ML VIAL IVP STA (19:00)
[2019-01-19] MEDS ORDERED: Haloperidol Lactate 5 MG/ML VIAL IVP ONE (20:19)
[2019-01-19 21:17] LABS: Bilirubin,Urine Negative (Negative); Blood,Urine Trace (Negative); Clarity,Urine Clear (Clear); Color,Urine Yellow (Yellow); Glucose,Urine (UA) Normal (Normal); Ketones,Urine 15 mg/dL (Negative); Leukocyte Esterase,Urine Negative (Negative); Nitrite,Urine Negative (Negative); PH,Urine 6.5 pH Units (5.0-8.0); Protein,Urine Trace mg/dL (Neg-Trace); Specific Gravity,Urine 1.013 (1.010-1.025); Urobilinogen,Urine Normal (Normal)
[2019-01-19 21:20] LABS: Bacteria,Urine None Seen per hpf (None-Few); Hyaline Casts,Urine None Seen per lpf (None-Few); Squamous Epithelial Cell,Urine Many per lpf (None-Few); WBC,Urine 0-3 per hpf (0-3)
[2019-01-19] MEDS ORDERED: Famotidine 20 MG/2 ML VIAL IVP ONE (21:51)
[2019-01-19 22:00] LABS: Basophils # 0.1 K/mcL (0.0-0.2); Basophils % 0.4 %; Hematocrit 46.8 % (35.3-44.9); Hemoglobin 15.8 g/dL (11.5-15.4); Immature Granulocytes % 0.8 % (0-4); Lymphocytes # 1.2 K/mcL (0.6-4.6); Lymphocytes % 4.1 %; Mean Corpuscular HGB Conc 33.8 g/dL (31.6-35.5); Mean Corpuscular Hemoglobin 29.4 pg (28.0-33.3); Mean Corpuscular Volume 87.2 fL (83.0-100.0); Mean Platelet Volume 11.6 fL (9.4-12.4); Monocytes # 1.2 K/mcL (0.0-1.3); Monocytes % 4.3 %; Neutrophils # 25.8 K/mcL (1.6-8.9); Platelet Count 372 K/mcL (140-400); Red Blood Count 5.37 M/mcL (3.82-4.97); Red Cell Distribution Width 12.9 % (11.5-14.5); Segmented Neutrophils % 90.4 %; White Blood Count 28.5 K/mcL (4.3-11.1)
[2019-01-19] MEDS ORDERED: SUMAtriptan succinate 50 MG TABLET PO PRN (22:11)
[2019-01-19 22:15] LABS: Platelet Estimate Normal (Normal); Toxic Granulation Present (Not Present)
[2019-01-19] MEDS ORDERED: Ipratropium/Albuterol Neb 3 ML IH PRN (22:15)
--- NOTE | 2019-01-19 22:18 | Internal Med History&Physical ---
Date of Encounter: 01/19/19 Time of Encounter: 22:17 Internal Medicine - H&P: HPI Chief complaint: diarrhea Plans for Post Hospital Care: Home History of present illness: Mayte Nelson is a 73 year old woman with coronary artery disease, gastric bypass, hypertension, migraine, seizure disorder and cerebral AVMs who was admitted here recently for a chest pain evaluation and underwent stress testing that was negative. She presents to the ER today complaining of sudden onset nausea, dry heaving and profuse watery diarrhea since this morning not associated with significant abdominal pain but says she just feels sick. She received multiple anti-emetic medications in the ER without significant relief, noted to have mild hypokalemia, leukocytosis and PAM. She is admitted for further care. Vitals: Reviewed General: Well-developed woman lying in bed with notable discomfort and antalgic posturing. Skin: Warm and supple. HEENT: Moist mucous membranes. No conjunctivae pallor. Neck: No lymphadenopathy. No JVD. No carotid bruits. No palpable thyroid. Chest: Normal thoracic expansion. Normal breath sounds. Clear to auscultation. Heart: Normal S1 & S2; rhythmic. No rubs or murmurs. Abdomen: Non-distended, soft and non-tender to palpation. No peritoneal reaction. Extremities: No clubbing, cyanosis or edema. No calf tenderness. Normal distal pulses. Neurological: Awake, alert and oriented to person, place and time. No focal deficits. Psych: Affect appropriate. Assessment/Plan 1. Acute gastroenteritis: Unclear etiology. Given her recent hospitalizations she should be tested for C.diff among other entities. Will keep her on anti- emetics as needed, continue fluid resuscitation and antimicrobials will be based on stool testing. Contact precautions in the interim. 2. PAM: Stage 1: Pre-renal in etiology. Will provide fluids and recheck. 3. CAD: Stable. Continue antiplatelet therapy. 4. Seizure disorder: On levetiracetam. Past Med Surg Social Fam HX - Past Medical History Medical history: asthma, CHF, coronary artery disease, dementia, hyperlipidemia, hypertension, migraine, myocardial infarction, osteoporosis, renal disease, seizures, SVT, other Additional medical history: RLS Psychiatric history: anxiety, depression - Past Surgical History Surgical History: angioplasty/stent, cholecystectomy, hysterectomy, orthopedic, other, other Additional surgical history: BRAIN SURGERY, BACK SURGERY, HIP SURGERY, PIN TO FINGER - Social History Smoking Status: Light tobacco smoker Smokeless Tobacco Status: No Alcohol use: none Drug use: none - Family History Father Hx Family Cardiac Disorders: Yes ([place]) Hx Family Cancer: Yes (lung cancer) Mother Adopted: No Family Member Ethnicity: Non- Living Status: Hx Family Cardiac Disorders: Yes Hx Family Respiratory Disorders: Yes Hx Family Cancer: Yes Hx Family GI Disorders: Yes Hx Family Endocrine Disorder: No Hx Family Neuromuscular Disorders: No Hx Family Neurologic Disorders: No Hx Family HEENT Disorders: No Hx Family Autoimmune Disorders: No Internal Medicine - H&P: Meds Ropinirole HCl [Requip] 2 mg PO HS 05/06/15 [History] Cyanocobalamin (B-12) [Vitamin B12] 1,000 mcg IM QMONTH 11/13/15 [History] Potassium Chloride [K-Tab ER] 10 - 20 meq PO DAILY 11/13/15 [History] Scopolamine Patch [Transderm-Scop] 1.5 mg TD Q72H PRN 11/13/15 [History] LevETIRAcetam [Keppra Xr] 1,000 mg PO HS 04/29/16 [History] Zolpidem Tartrate [Ambien Cr] 12.5 mg PO HS 04/29/16 [History] SUMAtriptan succinate [Imitrex] 50 mg PO DAILY PRN 07/01/16 [History] FLUoxetine HCl [Fluoxetine HCl] 40 mg PO QAM 07/27/16 [History] Fluticasone Propionate [Flovent Hfa] 2 puff IH BID 07/27/16 [History] Promethazine [Phenergan] 50 mg RC Q6HR PRN 09/27/16 [History] Albuterol Sulfate [Albuterol Inhaler] 2 puff IH Q6H PRN 04/17/18 [History] Clopidogrel [Plavix] 75 mg PO DAILY 04/17/18 [History] Ergocalciferol (VITAMIN D2) [Vitamin D2] 50,000 unit PO FR 04/17/18 [History] Furosemide [Lasix] 40 mg PO BID 04/17/18 [History] Dronabinol 10 mg PO BID 01/11/19 [History] Nitroglycerin 0.3 mg SL AD PRN 01/11/19 [History] Atorvastatin [Lipitor] 40 mg PO HS 30 Days #30 tablet 01/12/19 [Rx] Metoprolol XL (24 HR) Succ [Toprol Xl] 12.5 mg PO DAILY 30 Days #30 tab.er.24h 01/12/19 [Rx] Spironolactone [Aldactone] 25 mg PO DAILY #0 01/12/19 [Rx] Allergy/AdvReac Type Severity Reaction Status Date / Time prednisone Allergy Unknown unknown Verified 10/26/17 09:57 salicylates [Salicylate] Allergy Unknown unknown Verified 10/26/17 09:57 acetaminophen AdvReac Intermediate See Verified 10/26/17 09:57 [From Lily] Comments adhesive AdvReac Unknown Blister Verified 10/26/17 09:57 aspirin AdvReac Unknown bleeding Verified 10/26/17 09:57 divalproex sodium AdvReac Unknown hallucinati Verified 10/26/17 09:57 on metoclopramide AdvReac Unknown Nausea Verified 10/26/17 09:57 ondansetron AdvReac Unknown Nausea Verified 10/26/17 09:57 propoxyphene AdvReac Unknown feeling of Verified 10/26/17 09:57 bugs crawling adhesive tape AdvReac Blister Verified 10/26/17 09:57 ibuprofen AdvReac Nausea Verified 10/26/17 09:57 stool softener AdvReac Unknown Shakiness Uncoded 10/26/17 09:57 All Systems PM: A 10-system review of systems was performed and is negative for pertinent findin gs except as documented above in the HPI. - Constitutional Vitals: Temp Pulse Resp BP Pulse Ox 98 F 78 16 132/64 100 01/19/19 16:19 01/19/19 16:19 01/19/19 21:49 01/19/19 21:49 01/19/19 16:19 Exam: . Internal Med - H&P Results - Labs CBC & Chem 7: 01/19/19 17:04 01/19/19 17:04 Labs: Short CBC 01/19/19 Range/Units 17:04 WBC 28.5 H (4.3-11.1) K/mcL Hgb 15.8 H (11.5-15.4) g/dL Hct 46.8 H (35.3-44.9) % Plt Count 372 (140-400) K/mcL Neutrophils # 25.8 H (1.6-8.9) K/mcL BMP 01/19/19 17:04 Sodium 138 Potassium 3.0 L Chloride 97 L Carbon Dioxide 21 L BUN 25 H Creatinine 1.24 H Glucose 249 H Calcium 9.5 Liver Function 01/19/19 Range/Units 17:04 Total Bilirubin 1.0 (0.3-1.0) mg/dL Direct Bilirubin 0.2 (0.0-0.2) mg/dL AST 16 (13-39) Units/L ALT 13 (7-52) Units/L Alkaline Phosphatase 80 (34-104) Units/L Albumin 4.7 (3.5-5.7) g/dL Urine 01/19/19 Range/Units 20:47 Urine Color Yellow (Yellow) Urine Clarity Clear (Clear) Urine pH 6.5 (5.0-8.0) pH Units Ur Specific [place] 1.013 (1.010-1.025) Urine Protein Trace (Neg-Trace) mg/dL Urine Glucose (UA) Normal (Normal) mg/dL - Impressions ITS Impressions Chest X-Ray 01/19/19 16:47 IMPRESSION: Stable chest. No acute cardiopulmonary abnormality. D/ / Lupis Mauricio MD / Lupis Mauricio MD Interpreting Provider: Lupis Mauricio MD Abdomen/Pelvis CT 01/19/19 17:10 IMPRESSION: 1. History of gastric bypass with no evidence of inflammation at the operative site in the upper abdomen. 2. Distally, the small bowel appears normal. There is a large amount of stool within the sigmoid colon and rectum which could indicate underlying constipation or fecal impaction. 3. Limited evaluation of rectal mucosa on this noncontrast study. Questionable mucosal thickening distally. This could represent underlying proctitis. A mass can not be definitively excluded. Recommend correlation with colonoscopy results. 4. Age indeterminate T9 compression fracture. D/ / Kyle Connell MD / Kyle Connell MD Interpreting Provider: Kyle Connell MD - Time Spent With Patient Total time spent is greater than 50% in coordination of care (as documented) at patient's floor/unit and/or counseling patient: Greater than 35 minutes
[2019-01-19] MEDS: *HR* Promethazine 25 MG/ML VIAL IVP PRN (23:15)
[2019-01-19] MEDS: rOPINIRole 1 MG TABLET PO SCH (23:16)
[2019-01-20] MEDS: levETIRAcetam 250 MG TABLET PO SCH ×3 (01:50→20:38)
[2019-01-20] MEDS: Ringers Solution, Lactated 1,000 ML IVC SCH ×3 (03:11→20:38)
[2019-01-20] MEDS: *HR* Heparin 5,000 UNIT/ML VIAL SQ SCH ×2 (05:03→17:50)
[2019-01-20] MEDS: *HR* Promethazine 25 MG/ML VIAL IVP PRN ×4 (05:09→20:37)
[2019-01-20 05:26] LABS: Basophils % 0.1 %; Hematocrit 39.7 % (35.3-44.9); Immature Granulocytes % 0.9 % (0-4); Lymphocytes % 3.9 %; Mean Corpuscular Hemoglobin 29.6 pg (28.0-33.3); Mean Corpuscular Volume 84.5 fL (83.0-100.0); Mean Platelet Volume 11.2 fL (9.4-12.4); Monocytes # 0.9 K/mcL (0.0-1.3); Monocytes % 3.5 %; Platelet Count 317 K/mcL (140-400); Red Cell Distribution Width 12.9 % (11.5-14.5); Segmented Neutrophils % 91.6 %; White Blood Count 25.1 K/mcL (4.3-11.1)
[2019-01-20 05:27] LABS: Hemoglobin 13.9 g/dL (11.5-15.4)
[2019-01-20 05:45] LABS: Calcium 8.6 mg/dL (8.6-10.3); Potassium 3.5 mEq/L (3.5-5.1)
[2019-01-20 05:50] LABS: Platelet Estimate Normal (Normal)
[2019-01-20] MEDS: MetroNIDAZOLE 500 MG/100 ML 500 MG/100 ML BAG IVPB SCH ×3 (08:14→23:55)
[2019-01-20] MEDS: FLUoxetine 20 MG CAPSULE PO SCH (08:16)
[2019-01-20] MEDS: Metoprolol XL (24 HR) Succ 25 MG TAB.ER.24H PO SCH (08:16)
--- NOTE | 2019-01-20 10:55 | Internal Med Progress Note ---
Hospitalist Progress Note - Encounter Date of Encounter: 01/20/19 Time of Encounter: 08:45 - Subjective Interval History: H&P reviewed. Patient with history of CAD, gastric bypass, hypertension, seizure disorder, was admitted overnight due to N/V and diarrhea. CT scan showed ?constipation/fecal impaction and/or proctitis. STates that she has had 1 BM si nce presentation but none after. Continues to endorse N/V. No fever overnight. - Exam Vitals: Temp Pulse Resp BP Pulse Ox 99.6 F 83 14 130/75 97 01/20/19 06:56 01/20/19 06:56 01/20/19 06:56 01/20/19 06:56 01/20/19 06:56 Exam: Vitals: Reviewed General: alert and oriented, mild distress due to nausea Chest: Normal thoracic expansion. Normal breath sounds. Clear to auscultation. Heart: Normal S1 & S2; rhythmic. No rubs or murmurs. Abdomen: Soft, mild generalized tenderness without rebound/guarding/rigidity. BS active. Declines PAULETTE Extremities: No clubbing, cyanosis or edema. No calf tenderness. Normal distal pulses. Neurological: No focal deficits. - Assessment and Plan (1) Gastroenteritis Current Visit: Yes Status: Acute Assessment and Plan: Presented with N/V and diarrhea in the setting of recent exposure to hospital CT scan only revealing for ?constipation/fecal impaction and possible proctitis. Also has leukocytosis pt however states that she has BM regularly and does not feel constipated at all, declines PAULETTE will await for stool sample for GI panel; if she remains without BM today, then it will be more concerning for overflow diarrhea continue cipro/flagyl for now, IVF (2) Acute kidney injury Current Visit: Yes Status: Acute Assessment and Plan: likely pre-renal in the setting of diarrhea, also has hypokalemia IVF, potassium supplementation (3) CAD (coronary artery disease) Current Visit: No Status: Chronic Assessment and Plan: resume home meds recent stress test 01/12 -ve (4) History of seizures Current Visit: No Status: Chronic Assessment and Plan: resume keppra (5) Migraine Current Visit: No Status: Chronic Assessment and Plan: PRN imitrex DVT Prophylaxis: SQ heparin - Time Spent with Patient Total time spent is greater than 50% in coordination of care (as documented) at patient's floor/unit and/or counseling patient: 25 - 35 minutes Plan of Care Discussed with: patient Internal Medicine: Result - Labs CBC & Chem 7: 01/20/19 05:15 01/20/19 05:15 Labs: Short CBC 01/19/19 01/20/19 Range/Units 17:04 05:15 WBC 28.5 H 25.1 H (4.3-11.1) K/mcL Hgb 15.8 H 13.9 D (11.5-15.4) g/dL Hct 46.8 H 39.7 (35.3-44.9) % Plt Count 372 317 (140-400) K/mcL Neutrophils # 25.8 H 23.0 H (1.6-8.9) K/mcL BMP 01/19/19 01/20/19 17:04 05:15 Sodium 138 138 Potassium 3.0 L 3.5 Chloride 97 L 103 Carbon Dioxide 21 L 25 BUN 25 H 26 H Creatinine 1.24 H 1.11 Glucose 249 H 192 H Calcium 9.5 8.6 Liver Function 01/19/19 Range/Units 17:04 Total Bilirubin 1.0 (0.3-1.0) mg/dL Direct Bilirubin 0.2 (0.0-0.2) mg/dL AST 16 (13-39) Units/L ALT 13 (7-52) Units/L Alkaline Phosphatase 80 (34-104) Units/L Albumin 4.7 (3.5-5.7) g/dL Urine 01/19/19 Range/Units 20:47 Urine Color Yellow (Yellow) Urine Clarity Clear (Clear) Urine pH 6.5 (5.0-8.0) pH Units Ur Specific [place] 1.013 (1.010-1.025) Urine Protein Trace (Neg-Trace) mg/dL Urine Glucose (UA) Normal (Normal) mg/dL - Impressions Impressions Chest X-Ray 01/19/19 16:47 IMPRESSION: Stable chest. No acute cardiopulmonary abnormality. D/ / Lupis Mauricio MD / Lupis Mauricio MD Interpreting Provider: Lupis Mauricio MD Abdomen/Pelvis CT 01/19/19 17:10 IMPRESSION: 1. History of gastric bypass with no evidence of inflammation at the operative site in the upper abdomen. 2. Distally, the small bowel appears normal. There is a large amount of stool within the sigmoid colon and rectum which could indicate underlying constipation or fecal impaction. 3. Limited evaluation of rectal mucosa on this noncontrast study. Questionable mucosal thickening distally. This could represent underlying proctitis. A mass can not be definitively excluded. Recommend correlation with colonoscopy results. 4. Age indeterminate T9 compression fracture. D/ / Kyle Connell MD / Kyle Connell MD Interpreting Provider: Kyle Connell MD Consult Discharge Plan - Plan Referrals: Noé Skinner MD [Primary Care Provider] - ____ (3) CAD (coronary artery disease) Qualifiers: Coronary Disease-Associated Artery/Lesion type: unspecified vessel or lesion type [place] vs. transplanted heart: [place] heart Associated angina: angina presence unspecified Qualified Code(s): I25.10 - Atherosclerotic heart disease of [place] coronary artery without angina pectoris (5) Migraine Qualifiers: Migraine type: unspecified Status migrainosus presence: without status migrainosus Intractability: not intractable Qualified Code(s): G43.909 - Migraine, unspecified, not intractable, without status migrainosus
--- NOTE | 2019-01-20 14:02 | Electrocardiograph Report ---
[place] [id number] Test Date: 2019-01-19 Pat Name: Mayte Nelson Department: [id number] Room: 3A24 Gender: F Internal Communications Intern: : 1945 Requested By: Sabine Fine Order Number: [id number] Reading MD: Taurus Bardales Measurements Intervals [place] Rate: 79 P: 69 [place]: 157 QRS: 47 QRSD: 99 T: 50 QT: 424 QTc: 487 Interpretive Statements Sinus rhythm Atrial premature complexes Borderline prolonged QT interval Electronically Signed On 01-20-2019 14:00:25 EDT by Taurus Bardales
[2019-01-20] MEDS: rOPINIRole 1 MG TABLET PO SCH (20:38)
[2019-01-20] MEDS: MOMETASONE FUROATE 100 mcg Inhaler IH SCH (21:54)
[2019-01-21] MEDS: Ringers Solution, Lactated 1,000 ML IVC SCH ×4 (04:23→23:40)
[2019-01-21] MEDS: *HR* Heparin 5,000 UNIT/ML VIAL SQ SCH ×2 (05:06→17:06)
[2019-01-21 06:30] LABS: Basophils % 0.3 %; Eosinophils % 0.2 %; Hematocrit 33.4 % (35.3-44.9); Immature Granulocytes % 0.8 % (0-4); Lymphocytes # 1.7 K/mcL (0.6-4.6); Lymphocytes % 14.6 %; Mean Corpuscular HGB Conc 33.2 g/dL (31.6-35.5); Mean Corpuscular Hemoglobin 29.4 pg (28.0-33.3); Mean Corpuscular Volume 88.4 fL (83.0-100.0); Mean Platelet Volume 11.3 fL (9.4-12.4); Monocytes # 0.7 K/mcL (0.0-1.3); Monocytes % 5.8 %; Platelet Count 211 K/mcL (140-400); Red Blood Count 3.78 M/mcL (3.82-4.97); Red Cell Distribution Width 13.2 % (11.5-14.5); Segmented Neutrophils % 78.3 %
[2019-01-21 06:31] LABS: Hemoglobin 11.1 g/dL (11.5-15.4); Neutrophils # 9.2 K/mcL (1.6-8.9); White Blood Count 11.7 K/mcL (4.3-11.1)
[2019-01-21 06:51] LABS: BUN/Creatinine Ratio 22 (6-26); Blood Urea Nitrogen 17 mg/dL (8-23); Calcium 7.9 mg/dL (8.6-10.3); Carbon Dioxide 28 mEq/L (23-29); Chloride 109 mEq/L (98-107); Glucose 103 mg/dL (70-105); Magnesium 2.1 mg/dL (1.6-2.6); Osmolality,Calculated 298 (280-300); Potassium 3.2 mEq/L (3.5-5.1); Sodium 143 mEq/L (136-145); eGFR For African Americans > 60 (> 60); eGFR For Non-African Americans > 60 (> 60)
[2019-01-21] MEDS ORDERED: Cyanocobalamin (B-12) 1,000 MCG/ML VIAL IM SCH (07:45)
[2019-01-21] MEDS: MetroNIDAZOLE 500 MG/100 ML 500 MG/100 ML BAG IVPB SCH ×3 (08:48→23:36)
[2019-01-21] MEDS: *HR* Promethazine 25 MG/ML VIAL IVP PRN ×3 (08:48→20:14)
[2019-01-21] MEDS: FLUoxetine 20 MG CAPSULE PO SCH (08:49)
[2019-01-21] MEDS: levETIRAcetam 250 MG TABLET PO SCH ×2 (08:49→20:11)
[2019-01-21] MEDS: Metoprolol XL (24 HR) Succ 25 MG TAB.ER.24H PO SCH (08:49)
[2019-01-21] MEDS: Potassium Chloride Elixir 20 MEQ/15 ML UDC PO SCH ×3 (08:51→13:57)
[2019-01-21] MEDS ORDERED: Milk and Molasses Enema 200 ML RC ONE (09:34)
[2019-01-21] MEDS: MOMETASONE FUROATE 100 mcg Inhaler IH SCH ×2 (11:01→21:25)
--- NOTE | 2019-01-21 11:08 | Internal Med Progress Note ---
Hospitalist Progress Note - Encounter Date of Encounter: 01/21/19 Time of Encounter: 09:00 - Subjective Interval History: Reports that she feels a little better but continues to experience intermittent episodes of N/V. Pt feels like she has to "try hard" to have BM and therefore has not had any significant bowel movement since the admission. No fever ov ernight. Denies any abdominal pain. - Exam Vitals: Temp Pulse Resp BP Pulse Ox 98.7 F 61 15 111/68 98 01/21/19 06:26 01/21/19 06:26 01/21/19 06:26 01/21/19 06:26 01/21/19 06:26 Exam: Vitals: Reviewed General: alert and oriented, mild distress due to nausea Chest: Normal thoracic expansion. Normal breath sounds. Clear to auscultation. Heart: Normal S1 & S2; rhythmic. No rubs or murmurs. Abdomen: Soft, mild generalized tenderness without rebound/guarding/rigidity. BS active. Declines PAULETTE Extremities: No clubbing, cyanosis or edema. No calf tenderness. Normal distal pulses. Neurological: No focal deficits. - Assessment and Plan (1) Constipation Current Visit: Yes Status: Acute Assessment and Plan: Presented with N/V and diarrhea in the setting of recent exposure to hospital Was concerning for infectious cause of diarrhea especially with concurrent leukocytosis but CT scan only showed for large amount of stool within sigmoid colon and rectum +/- proctitis. pt states that she was trying hard to have BM but did not have any. Concern for overflow diarrhea rather than infectious etiology of diarrhea will administer MOM enema and monitor continue cipro/flagyl for now, IVF (2) Gastroenteritis Current Visit: Yes Status: Acute Assessment and Plan: as above, if she clinically improves after enema, would consider discontinuing abx (3) Acute kidney injury Current Visit: Yes Status: Acute Assessment and Plan: likely pre-renal in the setting of diarrhea, also has hypokalemia Cr improving on IVF, potassium supplementation (4) CAD (coronary artery disease) Current Visit: No Status: Chronic Assessment and Plan: resume home meds recent stress test 01/12 -ve (5) History of seizures Current Visit: No Status: Chronic Assessment and Plan: resume keppra (6) Migraine Current Visit: No Status: Chronic Assessment and Plan: PRN imitrex DVT Prophylaxis: SQ hep - Time Spent with Patient Total time spent is greater than 50% in coordination of care (as documented) at patient's floor/unit and/or counseling patient: 25 - 35 minutes Plan of Care Discussed with: patient (discussed with RN) Internal Medicine: Result - Labs CBC & Chem 7: 01/21/19 04:00 01/21/19 04:00 Labs: Short CBC 01/21/19 Range/Units 04:00 WBC 11.7 H D (4.3-11.1) K/mcL Hgb 11.1 L D (11.5-15.4) g/dL Hct 33.4 L (35.3-44.9) % Plt Count 211 (140-400) K/mcL Neutrophils # 9.2 H (1.6-8.9) K/mcL BMP 01/21/19 04:00 Sodium 143 Potassium 3.2 L Chloride 109 H Carbon Dioxide 28 BUN 17 Creatinine 0.78 Glucose 103 Calcium 7.9 L Consult Discharge Plan - Plan Referrals: Noé Skinner MD [Primary Care Provider] - (1) Constipation Qualifiers: Constipation type: unspecified constipation type Qualified Code(s): K59.00 - Constipation, unspecified (4) CAD (coronary artery disease) Qualifiers: Coronary Disease-Associated Artery/Lesion type: unspecified vessel or lesion type [place] vs. transplanted heart: [place] heart Associated angina: angina presence unspecified Qualified Code(s): I25.10 - Atherosclerotic heart disease of [place] coronary artery without angina pectoris (6) Migraine Qualifiers: Migraine type: unspecified Status migrainosus presence: without status migrainosus Intractability: not intractable Qualified Code(s): G43.909 - Migraine, unspecified, not intractable, without status migrainosus
[2019-01-21] MEDS: rOPINIRole 1 MG TABLET PO SCH (20:11)
[2019-01-22] MEDS: *HR* Heparin 5,000 UNIT/ML VIAL SQ SCH (05:18)
[2019-01-22] MEDS: *HR* Promethazine 25 MG/ML VIAL IVP PRN (05:19)
[2019-01-22 05:26] LABS: Basophils # 0.1 K/mcL (0.0-0.2); Basophils % 0.4 %; Eosinophils % 0.2 %; Hematocrit 38.8 % (35.3-44.9); Immature Granulocytes % 1.2 % (0-4); Lymphocytes # 1.4 K/mcL (0.6-4.6); Mean Corpuscular HGB Conc 33.8 g/dL (31.6-35.5); Mean Corpuscular Hemoglobin 28.7 pg (28.0-33.3); Mean Corpuscular Volume 85.1 fL (83.0-100.0); Mean Platelet Volume 10.7 fL (9.4-12.4); Monocytes # 0.6 K/mcL (0.0-1.3); Monocytes % 5.1 %; Neutrophils # 10.2 K/mcL (1.6-8.9); Platelet Count 206 K/mcL (140-400); Red Blood Count 4.56 M/mcL (3.82-4.97); Red Cell Distribution Width 12.8 % (11.5-14.5); Segmented Neutrophils % 82.1 %; White Blood Count 12.5 K/mcL (4.3-11.1)
[2019-01-22 05:32] LABS: Hemoglobin 13.1 g/dL (11.5-15.4)
[2019-01-22 05:53] LABS: BUN/Creatinine Ratio 14 (6-26); Blood Urea Nitrogen 10 mg/dL (8-23); Calcium 8.1 mg/dL (8.6-10.3); Carbon Dioxide 24 mEq/L (23-29); Chloride 103 mEq/L (98-107); Glucose 105 mg/dL (70-105); Osmolality,Calculated 287 (280-300); Potassium 3.2 mEq/L (3.5-5.1); Sodium 139 mEq/L (136-145); eGFR For African Americans > 60 (> 60); eGFR For Non-African Americans > 60 (> 60)
[2019-01-22] MEDS ORDERED: Potassium Chloride 40 MEQ, Lidocaine 1% 2 ML in D5% in Water 500 ML IVPB ONE (07:18)
[2019-01-22] MEDS: Ringers Solution, Lactated 1,000 ML IVC SCH (07:28)
[2019-01-22] MEDS: MetroNIDAZOLE 500 MG/100 ML 500 MG/100 ML BAG IVPB SCH (07:29)
[2019-01-22] MEDS: MOMETASONE FUROATE 100 mcg Inhaler IH SCH (07:30)
[2019-01-22] MEDS: levETIRAcetam 250 MG TABLET PO SCH (07:31)
[2019-01-22] MEDS: FLUoxetine 20 MG CAPSULE PO SCH (07:31)
[2019-01-22] MEDS: Metoprolol XL (24 HR) Succ 25 MG TAB.ER.24H PO SCH (07:32)
[2019-01-22] MEDS ORDERED: Milk and Molasses Enema 200 ML RC ONE (09:08)
--- NOTE | 2019-01-22 09:19 | Discharge Summary ---
- NOTES TO OUTPATIENT PROVIDER Notes to Outpatient Provider: Follow-up with PCP and surgery as outpatient. Lasix on hold, repeat BMP in 3 days. Orders not resulted at time of discharge: Pending orders 01/20/19 04:58 Culture,Blood [BC] Stat Date of Encounter: 01/22/19 Time of Encounter: 07:15 - Discharge Diagnosis (1) Constipation Priority: Primary Status: Acute Qualifiers: Constipation type: unspecified constipation type Qualified Code(s): K59.00 - Constipation, unspecified (2) Gastroenteritis Priority: Secondary Status: Acute (3) Acute kidney injury Priority: Secondary Status: Acute (4) CAD (coronary artery disease) Priority: Secondary Status: Chronic Qualifiers: Coronary Disease-Associated Artery/Lesion type: unspecified vessel or lesion type [place] vs. transplanted heart: [place] heart Associated angina: angina presence unspecified Qualified Code(s): I25.10 - Atherosclerotic heart disease of [place] coronary artery without angina pectoris (5) History of seizures Priority: Secondary Status: Chronic (6) Migraine Priority: Secondary Status: Chronic Qualifiers: Migraine type: unspecified Status migrainosus presence: without status migrainosus Intractability: not intractable Qualified Code(s): G43.909 - Migraine, unspecified, not intractable, without status migrainosus Hospital course: Ms. Nelson is a 73 year old female with history of CAD, gastric bypass, hypertension, seizure disorder, who was admitted due to N/V, abdominal pain, and diarrhea. Noted to have PAM and CT scan showed findings compatible with constipation/fecal impaction and/or proctitis. Given her significant leukocytosis and recent hospital exposure, she was treated per possible infectious colitis but she was noted to have minimal stool output. ?Overflow diarrhea, had multiple copious BM after the administration of MOM enema with symptomatic improvement. Given her improvement in her leukocytosis with Cipro/flagyl, will complete a 5 day course and follow up with PCP and Surgery as outpt. Lasix on hold due to PAM, repeat BMP in 3 days. Discharge discussed with: patient, nurse - Time Spent with Patient Total time spent providing and/or coordinating discharge services: 32 mins - Discharge Medications Prescriptions: New Ciprofloxacin [Cipro] 500 mg PO BID 2 Days #4 tablet metroNIDAZOLE [Flagyl] 500 mg PO TID 2 Days #6 tablet Continued Ropinirole HCl [Requip] 2 mg PO HS Potassium Chloride [K-Tab ER] 20 meq PO DAILY Cyanocobalamin (B-12) [Vitamin B12] 1,000 mcg IM QMONTH LevETIRAcetam [Keppra Xr] 500 mg PO BID Zolpidem Tartrate [Ambien Cr] 12.5 mg PO HS Fluticasone Propionate [Flovent Hfa] 2 puff IH BID FLUoxetine HCl [Fluoxetine HCl] 40 mg PO QAM Promethazine [Phenergan] 50 mg RC Q6HR PRN PRN Reason: Nausea Ergocalciferol (VITAMIN D2) [Vitamin D2] 50,000 unit PO FR Albuterol Sulfate [Albuterol Inhaler] 2 puff IH Q6H PRN PRN Reason: Shortness Of Breath Clopidogrel [Plavix] 75 mg PO DAILY Nitroglycerin 0.3 mg SL AD PRN PRN Reason: Chest Pain Dronabinol 10 mg PO BID Atorvastatin [Lipitor] 40 mg PO HS 30 Days #30 tablet Metoprolol XL (24 HR) Succ [Toprol Xl] 12.5 mg PO DAILY 30 Days #30 tab.er.24h Spironolactone [Aldactone] 25 mg PO DAILY #0 Discontinued Furosemide [Lasix] 40 mg PO BID Home Medications: Ropinirole HCl [Requip] 2 mg PO HS 05/06/15 [History] Cyanocobalamin (B-12) [Vitamin B12] 1,000 mcg IM QMONTH 11/13/15 [History] Potassium Chloride [K-Tab ER] 20 meq PO DAILY 11/13/15 [History] LevETIRAcetam [Keppra Xr] 500 mg PO BID 04/29/16 [History] Zolpidem Tartrate [Ambien Cr] 12.5 mg PO HS 04/29/16 [History] FLUoxetine HCl [Fluoxetine HCl] 40 mg PO QAM 07/27/16 [History] Fluticasone Propionate [Flovent Hfa] 2 puff IH BID 07/27/16 [History] Promethazine [Phenergan] 50 mg RC Q6HR PRN 09/27/16 [History] Albuterol Sulfate [Albuterol Inhaler] 2 puff IH Q6H PRN 04/17/18 [History] Clopidogrel [Plavix] 75 mg PO DAILY 04/17/18 [History] Ergocalciferol (VITAMIN D2) [Vitamin D2] 50,000 unit PO FR 04/17/18 [History] Dronabinol 10 mg PO BID 01/11/19 [History] Nitroglycerin 0.3 mg SL AD PRN 01/11/19 [History] Atorvastatin [Lipitor] 40 mg PO HS 30 Days #30 tablet 01/12/19 [Rx] Metoprolol XL (24 HR) Succ [Toprol Xl] 12.5 mg PO DAILY 30 Days #30 tab.er.24h 01/12/19 [Rx] Spironolactone [Aldactone] 25 mg PO DAILY #0 01/12/19 [Rx] Ciprofloxacin [Cipro] 500 mg PO BID 2 Days #4 tablet 01/22/19 [Rx] metroNIDAZOLE [Flagyl] 500 mg PO TID 2 Days #6 tablet 01/22/19 [Rx] Allergies/Adverse Reactions: Allergy/AdvReac Type Severity Reaction Status Date / Time prednisone Allergy Unknown unknown Verified 01/21/19 11:34 salicylates [Salicylate] Allergy Unknown unknown Verified 01/21/19 11:34 acetaminophen AdvReac Intermediate See Verified 01/21/19 11:34 [From Lily] Comments adhesive AdvReac Unknown Blister Verified 01/21/19 11:34 aspirin AdvReac Unknown bleeding Verified 01/21/19 11:34 divalproex sodium AdvReac Unknown hallucinati Verified 01/21/19 11:34 on metoclopramide AdvReac Unknown Nausea Verified 01/21/19 11:34 ondansetron AdvReac Unknown Nausea Verified 01/21/19 11:34 propoxyphene AdvReac Unknown feeling of Verified 01/21/19 11:34 bugs crawling adhesive tape AdvReac Blister Verified 01/21/19 11:34 ibuprofen AdvReac Nausea Verified 01/21/19 11:34 stool softener AdvReac Unknown Shakiness Uncoded 01/21/19 11:34 Date of admission: 01/21/19 12:35 Primary care physician: Noé Skinner MD - Constitutional Vitals: Temp Pulse Resp BP Pulse Ox 98.7 F 71 16 146/92 95 01/22/19 06:49 01/22/19 06:49 01/22/19 07:32 01/22/19 06:49 01/22/19 07:56 Exam: Vitals: Reviewed General: alert and oriented, mild distress due to nausea Chest: Normal thoracic expansion. Normal breath sounds. Clear to auscultation. Heart: Normal S1 & S2; rhythmic. No rubs or murmurs. Abdomen: Soft, mild generalized tenderness without rebound/guarding/rigidity. BS active. Extremities: No clubbing, cyanosis or edema. No calf tenderness. Normal distal pulses. Neurological: No focal deficits. - Patient Status Disposition: Home, Self-Care Condition: Fair Overall status at discharge: patient is progressing back to baseline - Discharge Instructions Instructions: Gastroenteritis (DC) Follow Up With: Noé Skinner MD [Primary Care Provider] - Additional Instructions: Complete a course of Cipro/flagyl BMP in 3 days, lasix on hold - Diet and Activity Activity: resume usual activities as tolerated Diet: advance to your usual diet
--- NOTE | 2019-01-22 09:39 | Physician Discharge Referral ---
Home Health/Hosp Referral Info Transfer to: Home Health Provider in Charge Post Discharge: PCP - Diagnosis (1) Constipation Priority: Primary Status: Acute (2) Gastroenteritis Priority: Secondary Status: Acute (3) Acute kidney injury Priority: Secondary Status: Acute (4) CAD (coronary artery disease) Priority: Secondary Status: Chronic (5) History of seizures Priority: Secondary Status: Chronic (6) Migraine Priority: Secondary Status: Chronic - Respiratory Orders Smoking Cessation: Smoking cessation has been advised. For more information, call the [place] [employer] Quit Line at 3-848-KDKB-NOW. - Services Needed Following services are medically necessary services: Nursing, Occupational Therapy - Transfer Medications Prescriptions: Ciprofloxacin [Cipro] 500 mg PO BID 2 Days #4 tablet metroNIDAZOLE [Flagyl] 500 mg PO TID 2 Days #6 tablet Polyethylene Glycol 3350 [MiraLAX] 17 gm PO DAILY PRN #30 powd.pack PRN Reason: Constipation Home Medications: Ropinirole HCl [Requip] 2 mg PO HS 05/06/15 [History] Cyanocobalamin (B-12) [Vitamin B12] 1,000 mcg IM QMONTH 11/13/15 [History] Potassium Chloride [K-Tab ER] 20 meq PO DAILY 11/13/15 [History] LevETIRAcetam [Keppra Xr] 500 mg PO BID 04/29/16 [History] Zolpidem Tartrate [Ambien Cr] 12.5 mg PO HS 04/29/16 [History] FLUoxetine HCl [Fluoxetine HCl] 40 mg PO QAM 07/27/16 [History] Fluticasone Propionate [Flovent Hfa] 2 puff IH BID 07/27/16 [History] Promethazine [Phenergan] 50 mg RC Q6HR PRN 09/27/16 [History] Albuterol Sulfate [Albuterol Inhaler] 2 puff IH Q6H PRN 04/17/18 [History] Clopidogrel [Plavix] 75 mg PO DAILY 04/17/18 [History] Ergocalciferol (VITAMIN D2) [Vitamin D2] 50,000 unit PO FR 04/17/18 [History] Dronabinol 10 mg PO BID 01/11/19 [History] Nitroglycerin 0.3 mg SL AD PRN 01/11/19 [History] Atorvastatin [Lipitor] 40 mg PO HS 30 Days #30 tablet 01/12/19 [Rx] Metoprolol XL (24 HR) Succ [Toprol Xl] 12.5 mg PO DAILY 30 Days #30 tab.er.24h 01/12/19 [Rx] Spironolactone [Aldactone] 25 mg PO DAILY #0 01/12/19 [Rx] Ciprofloxacin [Cipro] 500 mg PO BID 2 Days #4 tablet 01/22/19 [Rx] Polyethylene Glycol 3350 [MiraLAX] 17 gm PO DAILY PRN #30 powd.pack 01/22/19 [Rx] metroNIDAZOLE [Flagyl] 500 mg PO TID 2 Days #6 tablet 01/22/19 [Rx] Allergies/Adverse Reactions: Allergy/AdvReac Type Severity Reaction Status Date / Time prednisone Allergy Unknown unknown Verified 01/21/19 11:34 salicylates [Salicylate] Allergy Unknown unknown Verified 01/21/19 11:34 acetaminophen AdvReac Intermediate See Verified 01/21/19 11:34 [From Lily] Comments adhesive AdvReac Unknown Blister Verified 01/21/19 11:34 aspirin AdvReac Unknown bleeding Verified 01/21/19 11:34 divalproex sodium AdvReac Unknown hallucinati Verified 01/21/19 11:34 on metoclopramide AdvReac Unknown Nausea Verified 01/21/19 11:34 ondansetron AdvReac Unknown Nausea Verified 01/21/19 11:34 propoxyphene AdvReac Unknown feeling of Verified 01/21/19 11:34 bugs crawling adhesive tape AdvReac Blister Verified 01/21/19 11:34 ibuprofen AdvReac Nausea Verified 01/21/19 11:34 stool softener AdvReac Unknown Shakiness Uncoded 01/21/19 11:34 Certification: Further, I certify that my clinical findings support that this patient is homebound (i.e. absences from home require considerable and taxing effort and are for medical reasons or scientology services or infrequently or short duration when for other reasons) because: Homebound Reason: Patient requires assistance of a person or device to safely leave home Attestation: My signature below is to certify that this patient is under my care and that I, or nurse practitioner, or a physician's biology laboratory assistant working with me, has a [id number] encounter with this patient.
[2019-01-22 10:43] VITALS: BP 134/84
--- NOTE | 2019-01-26 14:42 | Emergency Department Note ---
Disposition Clinical Impression: Acute kidney injury, Hypokalemia Nausea & vomiting Qualifiers: Vomiting type: unspecified Vomiting Intractability: intractable Qualified Code(s): R11.2 - Nausea with vomiting, unspecified Constipation Qualifiers: Constipation type: unspecified constipation type Qualified Code(s): K59.00 - Constipation, unspecified Disposition: Admitted As Inpatient Time of Disposition: 21:13 General Adult HPI - General Chief complaint: ED Nausea/Vomiting/Diarrhea Stated complaint: N/V Time Seen by Provider: 01/19/19 16:14 Source: patient, EMS Limitations: no limitations - History of Present Illness Pain Scale: 0 - Related Data Home Medications Medication Instructions Recorded Confirmed Ropinirole HCl [Requip] 2 mg PO HS 05/06/15 01/21/19 Cyanocobalamin (B-12) [Vitamin B12] 1,000 mcg IM QMONTH 11/13/15 01/21/19 Potassium Chloride [K-Tab ER] 20 meq PO DAILY 11/13/15 01/21/19 LevETIRAcetam [Keppra Xr] 500 mg PO BID 04/29/16 01/21/19 Zolpidem Tartrate [Ambien Cr] 12.5 mg PO HS 04/29/16 01/21/19 FLUoxetine HCl [Fluoxetine HCl] 40 mg PO QAM 07/27/16 01/21/19 Fluticasone Propionate [Flovent 2 puff IH BID 07/27/16 01/21/19 Hfa] Promethazine [Phenergan] 50 mg RC Q6HR PRN 09/27/16 01/21/19 Albuterol Sulfate [Albuterol 2 puff IH Q6H PRN 04/17/18 01/21/19 Inhaler] Clopidogrel [Plavix] 75 mg PO DAILY 04/17/18 01/21/19 Ergocalciferol (VITAMIN D2) 50,000 unit PO FR 04/17/18 01/21/19 [Vitamin D2] Dronabinol 10 mg PO BID 01/11/19 01/21/19 Nitroglycerin 0.3 mg SL AD PRN 01/11/19 01/21/19 Previous Rx's Medication Instructions Recorded Atorvastatin [Lipitor] 40 mg PO HS 30 Days #30 tablet 01/12/19 Metoprolol XL (24 HR) Succ [Toprol 12.5 mg PO DAILY 30 Days #30 01/12/19 Xl] tab.er.24h Spironolactone [Aldactone] 25 mg PO DAILY #0 01/12/19 Polyethylene Glycol 3350 [MiraLAX] 17 gm PO DAILY PRN #30 powd.pack 01/22/19 Allergies Allergy/AdvReac Type Severity Reaction Status Date / Time prednisone Allergy Unknown unknown Verified 01/21/19 11:34 salicylates [Salicylate] Allergy Unknown unknown Verified 01/21/19 11:34 acetaminophen AdvReac Intermediate See Verified 01/21/19 11:34 [From Lily] Comments adhesive AdvReac Unknown Blister Verified 01/21/19 11:34 aspirin AdvReac Unknown bleeding Verified 01/21/19 11:34 divalproex sodium AdvReac Unknown hallucinati Verified 01/21/19 11:34 on metoclopramide AdvReac Unknown Nausea Verified 01/21/19 11:34 ondansetron AdvReac Unknown Nausea Verified 01/21/19 11:34 propoxyphene AdvReac Unknown feeling of Verified 01/21/19 11:34 bugs crawling adhesive tape AdvReac Blister Verified 01/21/19 11:34 ibuprofen AdvReac Nausea Verified 01/21/19 11:34 stool softener AdvReac Unknown Shakiness Uncoded 01/21/19 11:34 Past Medical History - Past Medical History Medical history: Reports: asthma, CHF, coronary artery disease, dementia, hyperlipidemia, hypertension, migraine, myocardial infarction, osteoporosis, renal disease, seizures, SVT, other Surgical history: Reports: cholecystectomy, hip replacement, hysterectomy Psychiatric history: Reports: anxiety, depression - Social History Smoking Status: Light tobacco smoker Smokeless Tobacco Status: No Alcohol use: Reports: none Drug use: Reports: none Physical Exam - General Limitations: no limitations General appearance: alert Course Vital Signs Temperature 98 F 01/19/19 16:19 Pulse Rate 78 01/19/19 16:19 Respiratory Rate 16 01/19/19 16:19 Blood Pressure 160/72 01/19/19 16:19 O2 Sat by Pulse Oximetry 100 01/19/19 16:19 Temperature 98.5 F 01/22/19 10:42 Pulse Rate 87 01/22/19 10:42 Respiratory Rate 15 01/22/19 10:42 Blood Pressure 134/84 01/22/19 10:42 O2 Sat by Pulse Oximetry 95 01/22/19 10:42 Oxygen Delivery Oxygen Delivery Room Air Medical Decision Making - Lab Data Result diagrams: 01/22/19 04:30 01/22/19 04:30 Lab Results 01/19/19 01/19/19 01/19/19 Range/Units 17:04 17:04 20:47 WBC 28.5 H (4.3-11.1) K/mcL RBC 5.37 H (3.82-4.97) M/mcL Hgb 15.8 H (11.5-15.4) g/dL Hct 46.8 H (35.3-44.9) % MCV 87.2 (83.0-100.0) fL MCH 29.4 (28.0-33.3) pg MCHC 33.8 (31.6-35.5) g/dL RDW 12.9 (11.5-14.5) % Plt Count 372 (140-400) K/mcL MPV 11.6 (9.4-12.4) fL Immature Gran % 0.8 (0-4) % Seg Neutrophils % 90.4 % Lymphocytes % 4.1 % Monocytes % 4.3 % Eosinophils % 0.0 % Basophils % 0.4 % Neutrophils # 25.8 H (1.6-8.9) K/mcL Lymphocytes # 1.2 (0.6-4.6) K/mcL Monocytes # 1.2 (0.0-1.3) K/mcL Eosinophils # 0.0 (0.0-0.6) K/mcL Basophils # 0.1 (0.0-0.2) K/mcL Toxic Granulation Present A (Not Present) Platelet Estimate Normal (Normal) Sodium 138 (136-145) mEq/L Potassium 3.0 L (3.5-5.1) mEq/L Chloride 97 L (98-107) mEq/L Carbon Dioxide 21 L (23-29) mEq/L BUN 25 H (8-23) mg/dL Creatinine 1.24 H (0.60-1.20) mg/dL Est GFR ( Amer) 52 L (> 60) Est GFR (Non-Af Amer) 43 L (> 60) BUN/Creatinine Ratio 20 (6-26) Glucose 249 H (70-105) mg/dL Calculated Osmolality 299 (280-300) Calcium 9.5 (8.6-10.3) mg/dL Magnesium 2.2 (1.6-2.6) mg/dL Total Bilirubin 1.0 (0.3-1.0) mg/dL Direct Bilirubin 0.2 (0.0-0.2) mg/dL Indirect Bilirubin 0.8 (0.0-1.2) mg/dL AST 16 (13-39) Units/L ALT 13 (7-52) Units/L Alkaline Phosphatase 80 (34-104) Units/L Serum Total Protein 7.4 (6.4-8.9) g/dL Albumin 4.7 (3.5-5.7) g/dL Globulin 2.7 (2.4-3.5) g/dL Albumin/Globulin Ratio 1.7 (1.1-2.2) Lipase 16 (11-82) Units/L Urine Color Yellow (Yellow) Urine Clarity Clear (Clear) Urine pH 6.5 (5.0-8.0) pH Units Ur Specific [place] 1.013 (1.010-1.025) Urine Protein Trace (Neg-Trace) mg/dL Urine Glucose (UA) Normal (Normal) mg/dL Urine Ketones 15 H (Negative) mg/dL Urine Blood Trace H (Negative) Urine Nitrite Negative (Negative) Urine Bilirubin Negative (Negative) Urine Urobilinogen Normal (Normal) mg/dL Ur Leukocyte Esterase Negative (Negative) Urine Microscopic RBC 3-5 H (0-3) per hpf Urine Microscopic WBC 0-3 (0-3) per hpf Ur Squamous Epith Cells Many H (None-Few) per lpf Urine Bacteria None Seen (None-Few) per hpf Hyaline Casts None Seen (None-Few) per lpf Ur Culture Indicated? NO (NO) 01/20/19 01/20/19 01/21/19 Range/Units 05:15 05:15 04:00 WBC 25.1 H 11.7 H D (4.3-11.1) K/mcL RBC 4.70 3.78 L (3.82-4.97) M/mcL Hgb 13.9 D 11.1 L D (11.5-15.4) g/dL Hct 39.7 33.4 L (35.3-44.9) % MCV 84.5 88.4 (83.0-100.0) fL MCH 29.6 29.4 (28.0-33.3) pg MCHC 35.0 33.2 (31.6-35.5) g/dL RDW 12.9 13.2 (11.5-14.5) % Plt Count 317 211 (140-400) K/mcL MPV 11.2 11.3 (9.4-12.4) fL Immature Gran % 0.9 0.8 (0-4) % Seg Neutrophils % 91.6 78.3 % Lymphocytes % 3.9 14.6 % Monocytes % 3.5 5.8 % Eosinophils % 0.0 0.2 % Basophils % 0.1 0.3 % Neutrophils # 23.0 H 9.2 H (1.6-8.9) K/mcL Lymphocytes # 1.0 1.7 (0.6-4.6) K/mcL Monocytes # 0.9 0.7 (0.0-1.3) K/mcL Eosinophils # 0.0 0.0 (0.0-0.6) K/mcL Basophils # 0.0 0.0 (0.0-0.2) K/mcL Toxic Granulation (Not Present) Platelet Estimate Normal (Normal) Sodium 138 (136-145) mEq/L Potassium 3.5 (3.5-5.1) mEq/L Chloride 103 (98-107) mEq/L Carbon Dioxide 25 (23-29) mEq/L BUN 26 H (8-23) mg/dL Creatinine 1.11 (0.60-1.20) mg/dL Est GFR ( Amer) 59 L (> 60) Est GFR (Non-Af Amer) 48 L (> 60) BUN/Creatinine Ratio 23 (6-26) Glucose 192 H (70-105) mg/dL Calculated Osmolality 296 (280-300) Calcium 8.6 (8.6-10.3) mg/dL Magnesium (1.6-2.6) mg/dL Total Bilirubin (0.3-1.0) mg/dL Direct Bilirubin (0.0-0.2) mg/dL Indirect Bilirubin (0.0-1.2) mg/dL AST (13-39) Units/L ALT (7-52) Units/L Alkaline Phosphatase (34-104) Units/L Serum Total Protein (6.4-8.9) g/dL Albumin (3.5-5.7) g/dL Globulin (2.4-3.5) g/dL Albumin/Globulin Ratio (1.1-2.2) Lipase (11-82) Units/L Urine Color (Yellow) Urine Clarity (Clear) Urine pH (5.0-8.0) pH Units Ur Specific [place] (1.010-1.025) Urine Protein (Neg-Trace) mg/dL Urine Glucose (UA) (Normal) mg/dL Urine Ketones (Negative) mg/dL Urine Blood (Negative) Urine Nitrite (Negative) Urine Bilirubin (Negative) Urine Urobilinogen (Normal) mg/dL Ur Leukocyte Esterase (Negative) Urine Microscopic RBC (0-3) per hpf Urine Microscopic WBC (0-3) per hpf Ur Squamous Epith Cells (None-Few) per lpf Urine Bacteria (None-Few) per hpf Hyaline Casts (None-Few) per lpf Ur Culture Indicated? (NO) 01/21/19 Range/Units 04:00 WBC (4.3-11.1) K/mcL RBC (3.82-4.97) M/mcL Hgb (11.5-15.4) g/dL Hct (35.3-44.9) % MCV (83.0-100.0) fL MCH (28.0-33.3) pg MCHC (31.6-35.5) g/dL RDW (11.5-14.5) % Plt Count (140-400) K/mcL MPV (9.4-12.4) fL Immature Gran % (0-4) % Seg Neutrophils % % Lymphocytes % % Monocytes % % Eosinophils % % Basophils % % Neutrophils # (1.6-8.9) K/mcL Lymphocytes # (0.6-4.6) K/mcL Monocytes # (0.0-1.3) K/mcL Eosinophils # (0.0-0.6) K/mcL Basophils # (0.0-0.2) K/mcL Toxic Granulation (Not Present) Platelet Estimate (Normal) Sodium 143 (136-145) mEq/L Potassium 3.2 L (3.5-5.1) mEq/L Chloride 109 H (98-107) mEq/L Carbon Dioxide 28 (23-29) mEq/L BUN 17 (8-23) mg/dL Creatinine 0.78 (0.60-1.20) mg/dL Est GFR ( Amer) > 60 (> 60) Est GFR (Non-Af Amer) > 60 (> 60) BUN/Creatinine Ratio 22 (6-26) Glucose 103 (70-105) mg/dL Calculated Osmolality 298 (280-300) Calcium 7.9 L (8.6-10.3) mg/dL Magnesium 2.1 (1.6-2.6) mg/dL Total Bilirubin (0.3-1.0) mg/dL Direct Bilirubin (0.0-0.2) mg/dL Indirect Bilirubin (0.0-1.2) mg/dL AST (13-39) Units/L ALT (7-52) Units/L Alkaline Phosphatase (34-104) Units/L Serum Total Protein (6.4-8.9) g/dL Albumin (3.5-5.7) g/dL Globulin (2.4-3.5) g/dL Albumin/Globulin Ratio (1.1-2.2) Lipase (11-82) Units/L Urine Color (Yellow) Urine Clarity (Clear) Urine pH (5.0-8.0) pH Units Ur Specific [place] (1.010-1.025) Urine Protein (Neg-Trace) mg/dL Urine Glucose (UA) (Normal) mg/dL Urine Ketones (Negative) mg/dL Urine Blood (Negative) Urine Nitrite (Negative) Urine Bilirubin (Negative) Urine Urobilinogen (Normal) mg/dL Ur Leukocyte Esterase (Negative) Urine Microscopic RBC (0-3) per hpf Urine Microscopic WBC (0-3) per hpf Ur Squamous Epith Cells (None-Few) per lpf Urine Bacteria (None-Few) per hpf Hyaline Casts (None-Few) per lpf Ur Culture Indicated? (NO) Attestation Statement - Attestation Attestation: I examined this patient and my medical decision-making was reviewed with the Resident Physician. I agree with the documented findings, disposition and treatment plan as described. I was present for the resident's EKG in terpretation.
== END 2019-01-22 13:43 | disposition home health service (06) | DRG 391 ==
LOC: EMEROOARM 16:09 → 3ANU 16:09 → SUATTDRO 21:35 → 3ANU 22:11
PROVIDERS: ADMIT Internal Medicine; ATTEND Internal Medicine